=== PATIENT | female | born 1985 | race African-American/Black ===

== ENCOUNTER 2018-01-16 15:12 | Inpatient (IN) | payer BC ==
[~2018-01-16] VITALS: Ht 170.2 cm; Wt 130.6 kg
[~2018-01-16 15:12] MED LIST: BACTRIM DS1 EA GT
--- OUTSIDE RECORDS SUMMARY | 2018-01-16 15:15 | XMS REPORT | Continuity of Care Document ---
Author Author [facility] Interface Address Unknown Phone Unavailable Problems Problem Status Onset Date Classification Date Reported Comments Source BILATERAL PILONIDAL ABSCESS, FEBRILE. LE Active 01/18/2016 [facility] Diabetes Resolved 04/02/2014 Problem 01/24/2016 [facility] Anxiety Resolved Problem 01/24/2016 [facility] Female hirsutism Resolved Problem 01/24/2016 [facility] Family history of MRSA infection Resolved Problem 01/24/2016 [facility] History of PCOS Resolved Problem 01/24/2016 [facility] Chronic hypertension Resolved Problem 01/24/2016 [facility] Bipolar affective Resolved Problem 01/24/2016 [facility] Depression Resolved Problem 01/24/2016 [facility] Morbid obesity Resolved Problem 01/24/2016 [facility] Acne inversa Resolved Problem 01/24/2016 [facility] Morbid obesity Active Problem 02/29/2016 [id number] Abscess of buttock Active Diagnosis 02/29/2016 [id number] Hyperglycemia due to type 2 diabetes mellitus Active Problem 02/29/2016 [id number] Cellulitis Active Diagnosis 02/29/2016 [id number] PILONIDAL CYST WITH ABSCESS Active [facility] Medications Medication Details Route Status Patient Instructions Ordering Provider Order Date Source Mupirocin 1 application to affected area Externally Active 2 % Externally Three times a day Hasan 02/09/2016 [id number] Pneumovax 23 0.5 mL, Route: IM, Drug Form: INJ, Daily, Start date: 01/21/16 10:00:00 CDT, Stop date: 01/21/16 15:00:00 CDTNotes: (Same as: Pneumovax 23) Refrigerate Inactive 01/21/2016 [facility] Acetaminophen 300 MG / Codeine Phosphate 30 MG Oral Tablet [Tylenol with Codeine #3] 1 tab, PO, Q6H, PRN Pain Score 1-3, X 5 day, # 20 tab, 0 Refill(s) Active 01/20/2016 [facility] Acetaminophen 300 MG / Codeine Phosphate 30 MG Oral Tablet [Tylenol with Codeine #3] 1 tab, Route: PO, Drug Form: TAB, Dosing Weight 136.42, kg, Q6H, PRN Pain Score 1-3, Start date: 01/20/16 16:11:00 CDT, Duration: 30 day, Stop date: 02/19/16 16:10:00 CSTNotes: Do not exceed 4gm/day of acetaminophen. (Same as: Tylenol with Codeine # 3) No Longer Active 01/20/2016 [facility] doxycycline hyclate 100 MG Oral Capsule 100 mg=1 cap, PO, Q12H, X 10 day, # 20 cap, 0 Refill(s) Active 01/20/2016 [facility] famotidine (ANES) Route: IV, Drug form: INJ, ONCE, Stop date: 01/19/16 9:44:00 CDT Inactive 01/19/2016 [facility] succinylcholine (ANES) Route: IV, Drug form: INJ, ONCE, Stop date: 01/19/16 9:44:00 CDT Inactive 01/19/2016 [facility] fentaNYL (ANES) Route: IV, Drug form: INJ, ONCE, Stop date: 01/19/16 9:44:00 CDT Inactive 01/19/2016 [facility] ondansetron (ANES) Route: IV, Drug form: INJ, ONCE, Stop date: 01/19/16 9:44:00 CDT Inactive 01/19/2016 [facility] propofol (ANES) Route: IV, Drug form: INJ, ONCE, Stop date: 01/19/16 9:44:00 CDT Inactive 01/19/2016 [facility] lidocaine (ANES) Route: IV, Drug form: INJ, ONCE, Stop date: 01/19/16 9:44:00 CDT Inactive 01/19/2016 [facility] midazolam (ANES) Route: IV, Drug form: SOLN, ONCE, Stop date: 01/19/16 9:44:00 CDT Inactive 01/19/2016 [facility] LR 1000 mL INJ (ANES) Route: IV, Total Volume: 1,000, Start date: 01/19/16 9:05:00 CDT, Stop date: 01/19/16 10:05:00 CDT Inactive 01/19/2016 [facility] influenza virus vaccine, inactivated 0.5 mL, Route: IM, Drug Form: SUSP, Daily, Start date: 01/19/16 9:00:00 CDT, Duration: 1 doses or times, Stop date: 01/19/16 9:00:00 CDTNotes: (Same as: Fluzone Quadrivalent, Fluarix Quadrivalent) For 3 years of age and older (0.5 mL IM) Shake well before use Inactive 01/19/2016 [facility] pneumococcal capsular polysaccharide type 1 vaccine / pneumococcal capsular polysaccharide type 10A vaccine / pneumococcal capsular polysaccharide type 11A vaccine / pneumococcal capsular polysaccharide type 12F vaccine / pneumococcal capsular polysacchar 0.5 mL, Route: IM, Drug Form: INJ, Daily, Start date: 01/19/16 9:00:00 CDT, Duration: 1 doses or times, Stop date: 01/19/16 9:00:00 CDTNotes: (Same as: Pneumovax 23) Refrigerate No Longer Active 01/19/2016 [facility] Albuterol 0.833 MG/ML / Ipratropium [place] 0.167 MG/ML Inhalant Solution 3 mL, Route: NEB, Dosing Weight 136.42, kg, ONCE, STAT, Start date: 01/19/16 6:47:00 CDT, Stop date: 01/19/16 6:47:00 CDT Inactive 01/19/2016 [facility] Calcium Chloride 0.0014 MEQ/ML / Potassium Chloride 0.004 MEQ/ML / Sodium Chloride 0.103 MEQ/ML / Sodium Lactate 0.028 MEQ/ML Injectable Solution 1,000 mL, Rate: 25 ml/hr, Infuse over: 40 hr, Route: IV, Dosing Weight 136.42 kg, Total Volume: 1,000, Start date: 01/19/16 6:47:00 CDT, Duration: 30 day, Stop date: 02/18/16 6:46:00 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 01/19/2016 [facility] Sodium Chloride 0.154 MEQ/ML Injectable Solution 500 mL, Rate: 25 ml/hr, Infuse over: 20 hr, Route: IV, Dosing Weight 136.42 kg, Total Volume: 500, Start date: 01/19/16 6:47:00 CDT, Duration: 30 day, Stop date: 02/18/16 6:46:00 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 01/19/2016 [facility] Lisinopril 20 mg, 1 tab, Route: PO, Drug form: TAB, Daily, kg, Start date: 01/18/16 17:32:00 CDT, Duration: 30 day, Stop date: 02/17/16 9:00:00 CSTNotes: (Same as: Prinivil, Zestril) No Longer Active 01/18/2016 [facility] K-Dur 20 40 mEq, 2 tab, Route: PO, Drug form: ERTAB, ONCE, Dosing Weight 136.42, kg, Start date: 01/18/16 16:58:00 CDT, Stop date: 01/18/16 16:58:00 CDTNotes: (Same as: K-Dur 20) "Do Not Crush" With food and full glass of water Inactive 01/18/2016 [facility] sodium chloride 0.9% 1000 ml INJ 1,000 mL 1,000 mL, Rate: 100 ml/hr, Infuse over: 10 hr, Route: IV, Dosing Weight 136.42 kg, Total Volume: 1,000, Start date: 01/18/16 16:12:00 CDT, Duration: 30 day, Stop date: 02/17/16 16:11:00 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 01/18/2016 [facility] heparin sodium, porcine 2500 UNT/ML Injectable Solution 5,000 unit, 1 mL, Route: SUB-Q, Drug form: INJ, Q8H, kg, Start date: 01/18/16 16:00:00 CDT, Duration: 30 day, Stop date: 02/17/16 14:00:00 CSTNotes: porcine heparin No Longer Active 01/18/2016 [facility] Clindamycin 600 mg, 50 mL, Route: IVPB, Drug form: INJ, ABXQ8H, kg, Start date: 01/18/16 14:00:00 CDT, Duration: 30 day, Stop date: 02/17/16 6:00:00 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 01/18/2016 [facility] Dextrose 50% Syringe 12.5 gm, 25 mL, Route: IVP, Drug Form: INJ, kg, PRN, PRN Blood Glucose Results, Start date: 01/18/16 13:38:00 CDT, Duration: 30 day, Stop date: 02/17/16 12:37:00 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 (Same as: NovoLOG) "single patient use only" WASTE: F/P - Black; E - Municipal Trash Bin Stable for 28 days at room temperature. Expires in days from Date No Longer Active 01/18/2016 [facility] Sodium Chloride 0.9% IV 1000 mL 1,000 mL, Rate: 100 ml/hr, Infuse over: 10 hr, Route: IV, Total Volume: 1,000, Start date: 01/18/16 13:38:00 CDT, Duration: 2 day, Stop date: 01/20/16 13:37:00 CDT Inactive 01/18/2016 [facility] Morphine 2 mg, 1 mL, Route: IVP, Drug form: INJ, Q4H, kg, PRN Pain Score 7-10, Start date: 01/18/16 13:30:00 CDT, Duration: 30 day, Stop date: 02/17/16 13:29:00 CSTNotes: (Same as:MORPhine Sulfate) No Longer Active 01/18/2016 [facility] Naproxen 500 mg, 2 tab, Route: PO, Drug form: TAB, Q8H, kg, PRN Pain Score 4-6, Start date: 01/18/16 13:30:00 CDT, Duration: 30 day, Stop date: 02/17/16 13:29:00 CSTNotes: (Same as: Naprosyn) Take with food. No Longer Active 01/18/2016 [facility] Metformin 1,000 mg, PO, BID, 0 Refill(s) Active 01/18/2016 [facility] Lisinopril 20 mg, PO, Daily, 0 Refill(s) Active 01/18/2016 [facility] NuvaRing 1 ea, VAG, q4wk, 0 Refill(s) Active 01/18/2016 [facility] Lisinopril 1 tablet Orally Active 20 MG Orally Once a day Hasan [id number] Allergies, Adverse Reactions, Alerts Substance Category Reaction Severity Reaction type Status Date Reported Comments Source penicillin Adverse Reaction Info Not Available Adverse Reaction Active 02/09/2016 [id number] penicillins Assertion Drug allergy Active [facility] Immunizations Immunization Date Given Site Status Last Updated Comments Source pneumococcal 23-valent vaccine 01/21/2016 Left deltoid completed [facility] influenza virus vaccine, inactivated 01/21/2016 Right deltoid completed [facility] Results Order Name Results Value Reference Range Date Interpretation Comments Source ELECTROLYTES AGAP 12.3 meq/L 10.0 - 20.0 01/21/2016 [facility] ELECTROLYTES Glucose Lvl 98 mg/dL 70 - 99 01/21/2016 [facility] ELECTROLYTES BUN 7 mg/dL 7 - 22 01/21/2016 [facility] ELECTROLYTES Chloride Lvl 104 meq/L 95 - 109 01/21/2016 [facility] ELECTROLYTES CO2 26 meq/L 24 - 32 01/21/2016 [facility] ELECTROLYTES Sodium Lvl 138 meq/L 135 - 145 01/21/2016 [facility] ELECTROLYTES Potassium Lvl 4.3 meq/L 3.5 - 5.1 01/21/2016 [facility] ELECTROLYTES Creatinine Lvl 0.67 mg/dL 0.50 - 1.40 01/21/2016 [facility] ELECTROLYTES eGFR 135 mL/min/1.73m2 01/21/2016 Result Comment: The eGFR is calculated using the CKD-EPI formula. In most young, healthy individuals the eGFR will be >90 mL/min/1.73m2. The eGFR declines with age. An eGFR of 60-89 may be normal in some populations, particularly the elderly, for whom the CKD-EPI formula has not been extensively validated. Use of the eGFR is not recommended in the following populations: Individuals with unstable creatinine concentrations, including patients and those with serious co-morbid conditions. Patients with extremes in muscle mass or diet. The data above are obtained from the National Kidney Disease Education Program (NKDEP) which additionally recommends that when the eGFR is used in patients with extremes of body mass index for purposes of drug dosing, the eGFR should be multiplied by the estimated BMI. [facility] ELECTROLYTES Calcium Lvl 8.4 mg/dL 8.5 - 10.5 01/21/2016 [facility] HEMATOLOGY RDW 14.4 % 11.5 - 14.5 01/21/2016 [facility] MPV 7.3 fL 7.4 - 10.4 01/21/2016 [facility] Platelet 400 K/CMM 133 - 450 01/21/2016 [facility] RBC 4.24 M/CMM 4.20 - 5.40 01/21/2016 [facility] WBC 9.6 K/CMM 3.7 - 10.4 01/21/2016 [facility] MCV 72.4 fL 80.0 - 98.0 01/21/2016 [facility] MCHC 31.4 g/dL 32.0 - 36.0 01/21/2016 [facility] Hct 30.7 % 36.0 - 48.0 01/21/2016 [facility] Hgb 9.6 g/dL 12.0 - 16.0 01/21/2016 [facility] MCH 22.8 pg 27.0 - 31.0 01/21/2016 [facility] Eosinophils # 0.5 K/CMM 0.0 - 0.5 01/21/2016 [facility] Monocytes # 1.0 K/CMM 0.0 - 0.8 01/21/2016 [facility] Microcyte 1+ *ABN* (01/21/16 4:41 AM) None Seen 01/21/2016 [facility] Lymphocytes # 2.8 K/CMM 1.0 - 5.5 01/21/2016 [facility] Basophils # 0.1 K/CMM 0.0 - 0.2 01/21/2016 [facility] Segs 53.9 % 45.0 - 75.0 01/21/2016 [facility] HEMATOLOGY Monocytes 10.5 % 2.0 - 12.0 01/21/2016 [facility] HEMATOLOGY Segs-Bands # 5.2 K/CMM 1.5 - 8.1 01/21/2016 [facility] HEMATOLOGY Basophils 0.9 % 0.0 - 1.0 01/21/2016 [facility] HEMATOLOGY Lymphocytes 29.1 % 20.0 - 40.0 01/21/2016 [facility] HEMATOLOGY Eosinophils 5.6 % 0.0 - 4.0 01/21/2016 [facility] ELECTROLYTES AGAP 11.0 meq/L 10.0 - 20.0 01/20/2016 [facility] ELECTROLYTES eGFR 116 mL/min/1.73m2 01/20/2016 Result Comment: The eGFR is calculated using the CKD-EPI formula. In most young, healthy individuals the eGFR will be >90 mL/min/1.73m2. The eGFR declines with age. An eGFR of 60-89 may be normal in some populations, particularly the elderly, for whom the CKD-EPI formula has not been extensively validated. Use of the eGFR is not recommended in the following populations: Individuals with unstable creatinine concentrations, including patients and those with serious co-morbid conditions. Patients with extremes in muscle mass or diet. The data above are obtained from the National Kidney Disease Education Program (NKDEP) which additionally recommends that when the eGFR is used in patients with extremes of body mass index for purposes of drug dosing, the eGFR should be multiplied by the estimated BMI. [facility] ELECTROLYTES Potassium Lvl 4.0 meq/L 3.5 - 5.1 01/20/2016 [facility] ELECTROLYTES Sodium Lvl 137 meq/L 135 - 145 01/20/2016 [facility] ELECTROLYTES CO2 26 meq/L 24 - 32 01/20/2016 [facility] ELECTROLYTES Calcium Lvl 8.7 mg/dL 8.5 - 10.5 01/20/2016 [facility] ELECTROLYTES Chloride Lvl 104 meq/L 95 - 109 01/20/2016 [facility] ELECTROLYTES Creatinine Lvl 0.78 mg/dL 0.50 - 1.40 01/20/2016 [facility] ELECTROLYTES BUN 8 mg/dL 7 - 22 01/20/2016 [facility] ELECTROLYTES Glucose Lvl 93 mg/dL 70 - 99 01/20/2016 [facility] HEMATOLOGY RBC 4.24 M/CMM 4.20 - 5.40 01/20/2016 [facility] HEMATOLOGY RDW 14.3 % 11.5 - 14.5 01/20/2016 [facility] HEMATOLOGY Platelet 422 K/CMM 133 - 450 01/20/2016 [facility] HEMATOLOGY MPV 7.7 fL 7.4 - 10.4 01/20/2016 [facility] HEMATOLOGY Hgb 10.1 g/dL 12.0 - 16.0 01/20/2016 [facility] HEMATOLOGY Hct 30.9 % 36.0 - 48.0 01/20/2016 [facility] HEMATOLOGY MCV 72.9 fL 80.0 - 98.0 01/20/2016 [facility] MCH 23.7 pg 27.0 - 31.0 01/20/2016 [facility] MCHC 32.5 g/dL 32.0 - 36.0 01/20/2016 [facility] HEMATOLOGY WBC 9.7 K/CMM 3.7 - 10.4 01/20/2016 [facility] Lymphocytes 28.5 % 20.0 - 40.0 01/20/2016 [facility] Monocytes 9.5 % 2.0 - 12.0 01/20/2016 [facility] HEMATOLOGY Eosinophils 5.8 % 0.0 - 4.0 01/20/2016 [facility] HEMATOLOGY Monocytes # 0.9 K/CMM 0.0 - 0.8 01/20/2016 [facility] HEMATOLOGY Eosinophils # 0.6 K/CMM 0.0 - 0.5 01/20/2016 [facility] HEMATOLOGY Basophils # 0.1 K/CMM 0.0 - 0.2 01/20/2016 [facility] HEMATOLOGY Basophils 0.7 % 0.0 - 1.0 01/20/2016 [facility] HEMATOLOGY Segs-Bands # 5.4 K/CMM 1.5 - 8.1 01/20/2016 [facility] HEMATOLOGY Lymphocytes # 2.8 K/CMM 1.0 - 5.5 01/20/2016 [facility] HEMATOLOGY Microcyte 1+ *ABN* (01/20/16 7:07 AM) None Seen 01/20/2016 [facility] HEMATOLOGY Segs 55.5 % 45.0 - 75.0 01/20/2016 [facility] URINE CHEM U Preg Negative (01/19/16 6:57 AM) Negative 01/19/2016 [facility] URINE AND STOOL UA Mucus Many /LPF None Seen /LPF 01/18/2016 [facility] URINE AND STOOL UA RBC 1 /HPF 0 - 2 01/18/2016 [facility] URINE AND STOOL UA Bacteria Occasional /HPF None Seen /HPF 01/18/2016 [facility] URINE AND STOOL UA Color Sahra 01/18/2016 [facility] URINE AND STOOL UA Sq Epi Occasional /LPF Few /LPF 01/18/2016 [facility] URINE AND STOOL UA Leuk Est Negative (01/18/16 6:04 PM) Negative 01/18/2016 [facility] URINE AND STOOL UA WBC 2 /HPF 0 - 5 01/18/2016 [facility] URINE AND STOOL UA Spec Grav 1.025 <=1.030 01/18/2016 [facility] URINE AND STOOL UA Turbidity Clear (01/18/16 6:04 PM) Clear 01/18/2016 [facility] URINE AND STOOL UA Ketones 20 mg/dL Negative mg/dL 01/18/2016 [facility] URINE AND STOOL UA Glucose Negative mg/dL Negative mg/dL 01/18/2016 [facility] URINE AND STOOL UA Protein 30 mg/dL Negative mg/dL 01/18/2016 [facility] URINE AND STOOL UA pH 5.0 5.0 - 8.0 01/18/2016 [facility] URINE AND STOOL UA Bili Negative *NA* (01/18/16 6:04 PM) Negative 01/18/2016 [facility] URINE AND STOOL UA Nitrite Negative (01/18/16 6:04 PM) Negative 01/18/2016 [facility] URINE AND STOOL UA Urobilinogen 2.0 mg/dL 0.1 - 1.0 01/18/2016 [facility] URINE AND STOOL UA Blood Negative (01/18/16 6:04 PM) Negative 01/18/2016 [facility] HEMATOLOGY PTT 32.3 s 22.9 - 35.8 01/18/2016 [facility] HEMATOLOGY PT 15.2 s 12.0 - 14.7 01/18/2016 [facility] HEMATOLOGY INR 1.18 0.85 - 1.17 01/18/2016 [facility] CHEM PANEL Magnesium Lvl 1.8 mg/dL 1.8 - 2.4 01/18/2016 [facility] CHEM PANEL eGFR 128 mL/min/1.73m2 01/18/2016 Result Comment: The eGFR is calculated using the CKD-EPI formula. In most young, healthy individuals the eGFR will be >90 mL/min/1.73m2. The eGFR declines with age. An eGFR of 60-89 may be normal in some populations, particularly the elderly, for whom the CKD-EPI formula has not been extensively validated. Use of the eGFR is not recommended in the following populations: Individuals with unstable creatinine concentrations, including patients and those with serious co-morbid conditions. Patients with extremes in muscle mass or diet. The data above are obtained from the National Kidney Disease Education Program (NKDEP) which additionally recommends that when the eGFR is used in patients with extremes of body mass index for purposes of drug dosing, the eGFR should be multiplied by the estimated BMI. [facility] CHEM PANEL Alk Phos 93 unit/L 39 - 136 01/18/2016 [facility] CHEM PANEL Bili Total 0.4 mg/dL 0.2 - 1.3 01/18/2016 [facility] CHEM PANEL Albumin Lvl 3.0 g/dL 3.5 - 5.0 01/18/2016 [facility] CHEM PANEL ALT 19 unit/L 0 - 65 01/18/2016 [facility] CHEM PANEL AST 18 unit/L 0 - 37 01/18/2016 [facility] CHEM PANEL Calcium Lvl 9.0 mg/dL 8.5 - 10.5 01/18/2016 [facility] CHEM PANEL Total Protein 8.2 g/dL 6.4 - 8.4 01/18/2016 [facility] CHEM PANEL Sodium Lvl 135 meq/L 135 - 145 01/18/2016 [facility] CHEM PANEL Potassium Lvl 3.4 meq/L 3.5 - 5.1 01/18/2016 [facility] CHEM PANEL Chloride Lvl 102 meq/L 95 - 109 01/18/2016 [facility] CHEM PANEL CO2 22 meq/L 24 - 32 01/18/2016 [facility] CHEM PANEL BUN 6 mg/dL 7 - 22 01/18/2016 [facility] CHEM PANEL Creatinine Lvl 0.72 mg/dL 0.50 - 1.40 01/18/2016 [facility] CHEM PANEL Glucose Lvl 127 mg/dL 70 - 99 01/18/2016 [facility] CHEM PANEL A/G Ratio 0.6 0.7 - 1.6 01/18/2016 [facility] CHEM PANEL B/C Ratio 8 6 - 25 01/18/2016 [facility] CHEM PANEL Globulin 5.2 g/dL 2.7 - 4.2 01/18/2016 [facility] CHEM PANEL AGAP 14.4 meq/L 10.0 - 20.0 01/18/2016 [facility] CHEM PANEL Phosphorus 3.1 mg/dL 2.5 - 4.5 01/18/2016 [facility] HEMATOLOGY MCV 72.7 fL 80.0 - 98.0 01/18/2016 [facility] HEMATOLOGY Hct 30.9 % 36.0 - 48.0 01/18/2016 [facility] HEMATOLOGY Hgb 9.6 g/dL 12.0 - 16.0 01/18/2016 [facility] HEMATOLOGY RBC 4.26 M/CMM 4.20 - 5.40 01/18/2016 [facility] HEMATOLOGY MCH 22.6 pg 27.0 - 31.0 01/18/2016 [facility] HEMATOLOGY WBC 19.1 K/CMM 3.7 - 10.4 01/18/2016 [facility] HEMATOLOGY MCHC 31.1 g/dL 32.0 - 36.0 01/18/2016 [facility] HEMATOLOGY RDW 14.1 % 11.5 - 14.5 01/18/2016 [facility] HEMATOLOGY Platelet 375 K/CMM 133 - 450 01/18/2016 [facility] HEMATOLOGY MPV 7.9 fL 7.4 - 10.4 01/18/2016 [facility] HEMATOLOGY Lymphocytes # 2.7 K/CMM 1.0 - 5.5 01/18/2016 [facility] HEMATOLOGY Eosinophils # 0.2 K/CMM 0.0 - 0.5 01/18/2016 [facility] HEMATOLOGY Basophils # 0.1 K/CMM 0.0 - 0.2 01/18/2016 [facility] HEMATOLOGY Microcyte 1+ *ABN* (01/18/16 2:49 PM) None Seen 01/18/2016 [facility] HEMATOLOGY Monocytes # 2.1 K/CMM 0.0 - 0.8 01/18/2016 [facility] HEMATOLOGY Eosinophils 1.2 % 0.0 - 4.0 01/18/2016 [facility] HEMATOLOGY Basophils 0.5 % 0.0 - 1.0 01/18/2016 [facility] HEMATOLOGY Segs-Bands # 13.9 K/CMM 1.5 - 8.1 01/18/2016 [facility] HEMATOLOGY Lymphocytes 14.3 % 20.0 - 40.0 01/18/2016 [facility] HEMATOLOGY Segs 72.9 % 45.0 - 75.0 01/18/2016 [facility] HEMATOLOGY Monocytes 11.1 % 2.0 - 12.0 01/18/2016 [facility] HEMATOLOGY Sed Rate 4 mm/h 0 - 20 01/18/2016 [facility] IMMUNOLOGY C-REACTIVE PROTEIN 165.0 mg/L <=2.9 mg/L 01/18/2016 [facility] SPECIAL CHEMISTRY Hgb A1C 7.6 % <=5.6 % 01/18/2016 [facility] Vital Signs Vital Sign Value Date Comments Source Weight 300 02/09/2016 [id number] Height 67 02/09/2016 [id number] Temperature Oral (F) 98.0 F 02/09/2016 [id number] Heart Rate 92 02/09/2016 [id number] Diastolic (mm Hg) 76 02/09/2016 [id number] Systolic (mm Hg) 144 02/09/2016 [id number] Systolic (mm Hg) 130 01/21/2016 [facility] Diastolic (mm Hg) 76 01/21/2016 [facility] Heart Rate 73 01/21/2016 [facility] Respitory Rate 16 01/21/2016 [facility] Temperature Oral (F) 98.6 F 01/21/2016 [facility] Respitory Rate 16 01/21/2016 [facility] Systolic (mm Hg) 144 01/21/2016 [facility] Diastolic (mm Hg) 72 01/21/2016 [facility] Heart Rate 78 01/21/2016 [facility] Temperature Oral (F) 98.2 F 01/21/2016 [facility] Temperature Oral (F) 98.0 F 01/21/2016 [facility] Heart Rate 73 01/21/2016 [facility] Respitory Rate 16 01/21/2016 [facility] Systolic (mm Hg) 134 01/21/2016 [facility] Diastolic (mm Hg) 73 01/21/2016 [facility] Height 170.18 cm 01/18/2016 [facility] Weight 136.42 01/18/2016 [facility] Encounters Location Location Details Encounter Type Encounter Number Reason For Visit Attending Provider ADM Date DC Date Status Source [facility] Inpatient [id number] Grace Cheng 01/18/2016 01/21/2016 [facility] Outpatient [id number] ABBIE EDWARDS 01/19/[address] [facility] Outpatient [id number] ABBIE EDWARDS 01/31/2016 Active [facility] 01/21/16 [id number] 02/09/2016 02/09/2016 [id number] Outpatient [id number] ABBIE EDWARDS 02/14/[address] [facility] Procedures Procedure Code Date Perfomer Comments Source Incision and drainage of abscess (eg, carbuncle, suppurative hidradenitis, cutaneous or subcutaneous abscess, cyst, furuncle, or paronychia); complicated or multiple [id number] 01/19/2016 [facility]ATT [id number] 04/02/2003 Stefani
--- OUTSIDE RECORDS SUMMARY | 2018-01-16 15:16 | XMS REPORT ---
Author Author Matt Millard Organization [employer] Address Unknown Phone Unavailable Care Team Providers Care Ball Ender Name Role Phone Matt Millard CP Unavailable Allergies, Adverse Reactions, Alerts Substance Reaction Event Type penicillin Info Not Available Drug Allergy Encounters Encounter Location Date [facility] 01/21/16 [facility] Feb 09, 2016 Problems Problem Type Condition ICD-9 Code Onset Dates Condition Status Problem Morbid obesity E66.01 Active Assessment Abscess of buttock L02.31 Active Problem Hyperglycemia due to type 2 diabetes mellitus E11.65 Active Assessment Morbid obesity E66.01 Active Assessment Cellulitis L03.90 Active Assessment Hyperglycemia due to type 2 diabetes mellitus E11.65 Active Medications Medication Code System Code Instructions Start Date End Date Status Dosage Mupirocin MEDISPAN [id number] 2 % Externally Three times a day Feb 09, 2016 Apr 09, 2016 Active 1 application to affected area Lisinopril MEDISPAN [id number] 20 MG Orally Once a day Active 1 tablet Social History Social History Element Qualifiers Date Reported Smoke Exposure: . Second Hand Smoke Exposure: No Feb 09, 2016 Do you take Aspirin, or a blood thinner . No I do not take aspirin / or a blood thinner Feb 09, 2016 Tobacco Use: . Are you a: never smoker Feb 09, 2016 Do you drink alcohol? . Status: No Feb 09, 2016 Vital Signs Date/Time: Feb 09, 2016 Weight 300 lbs Height 67 in Temperature 98.0 F Cardiac Monitoring Heart Rate 92 /min Blood Pressure Diastolic 76 mm Hg Blood Pressure Systolic 144 mm Hg Summary Purpose [employer] Submission
--- OUTSIDE RECORDS SUMMARY | 2018-01-16 15:16 | XMS REPORT | Summary of Care ---
Author Author [facility] Organization [facility] Address Unknown Phone Unavailable Encounter EULALIA Dumont(RODRIGUEZ) [id number] Date(s): 01/18/16 - 01/21/16 [facility] [address] [place] [address]- Discharge Disposition: Home Care with Home Health Attending Physician: Grace Cheng MD Admitting Physician: Grace Cheng MD Vital Signs 1 2 3 Most recent to oldest [Reference Range]: 170.18 cm (01/18/16 4:14 PM) Height 98.6 DegF (01/21/16 2:37 PM) 98.2 DegF (01/21/16 11:59 AM) 98.0 DegF (01/21/16 7:43 AM) Temperature Oral [96.4-99.1 DegF] 130/76 mmHg (01/21/16 2:37 PM) 144/72 mmHg *HI* (01/21/16 11:59 AM) 134/73 mmHg (01/21/16 7:43 AM) Blood Pressure [90-140/60-90 mmHg] 16 BRMIN (01/21/16 2:37 PM) 16 BRMIN (01/21/16 11:59 AM) 16 BRMIN (01/21/16 7:43 AM) Respiratory Rate [14-20 BRMIN] 73 bpm (01/21/16 2:37 PM) 78 bpm (01/21/16 11:59 AM) 73 bpm (01/21/16 7:43 AM) Peripheral Pulse Rate [60-100 bpm] 136.42 kg (01/18/16 3:14 PM) Weight Problem List Condition Effective Dates Status Health Status Informant Anxiety(Confirmed) Resolved Diabetes(Confirmed) 2014 Resolved Female Resolved hirsutism(Confirmed) Family history of Resolved MRSA infection(Confirmed) History of Resolved PCOS(Confirmed) Chronic Resolved hypertension(Confirm ed) Bipolar Resolved affective(Confirmed) Depression(Confirmed Resolved ) Morbid Resolved obesity(Confirmed) Acne Resolved inversa(Confirmed) Allergies, Adverse Reactions, Alerts Substance Reaction Severity Status penicillins Active Medications albuterol-ipratropium 2.5-0.5 mg inhalation solution 3 mL, Route: NEB, Dosing Weight 136.42, kg, ONCE, STAT, Start date: 01/19/16 6:4 7:00 CDT, Stop date: 01/19/16 6:47:00 CDT Start Date: 01/19/16 Stop Date: 01/19/16 Status: Discontinued clindamycin 600 mg, 50 mL, Route: IVPB, Drug form: INJ, ABXQ8H, kg, Start date: 01/18/16 14: 00:00 CDT, Duration: 30 day, Stop date: 02/17/16 6:00:[address] Start Date: 01/18/16 Stop Date: 01/21/16 Status: Discontinued Dextrose 50% Syringe 12.5 gm, 25 mL, Route: IVP, Drug Form: INJ, kg, PRN, PRN Blood Glucose Results, Start date: 01/18/16 13:38:00 CDT, Duration: 30 day, Stop date: 02/17/16 12:37:[address] Start Date: 01/18/16 Stop Date: 01/21/16 Status: Discontinued Dextrose 50% Syringe 25 gm, 50 mL, Route: IVP, Drug Form: INJ, kg, PRN, PRN Blood Glucose Results, St art date: 01/18/16 13:38:00 CDT, Duration: 30 day, Stop date: 02/17/16 12:37:[address] Start Date: 01/18/16 Stop Date: 01/21/16 Status: Discontinued doxycycline hyclate 100 mg oral capsule 100 mg=1 cap, PO, Q12H, X 10 day, # 20 cap, 0 Refill(s) Start Date: 01/20/16 Stop Date: 01/30/16 Status: Ordered famotidine (ANES) Route: IV, Drug form: INJ, ONCE, Stop date: 01/19/16 9:44:00 CDT Start Date: 01/19/16 Stop Date: 01/19/16 Status: Completed fentaNYL (ANES) Route: IV, Drug form: INJ, ONCE, Stop date: 01/19/16 9:44:00 CDT Start Date: 01/19/16 Stop Date: 01/19/16 Status: Completed glucagon 1 mg, Route: IM, Drug form: PDR/INJ, PRN, kg, PRN Blood Glucose Results, Start d ate: 01/18/16 13:38:00 CDT, Duration: 30 day, Stop date: 02/17/16 12:37:[address] Start Date: 01/18/16 Stop Date: 01/21/16 Status: Discontinued heparin 5000 units/mL injectable solution 5,000 unit, 1 mL, Route: SUB-Q, Drug form: INJ, Q8H, kg, Start date: 01/18/16 16 :00:00 CDT, Duration: 30 day, Stop date: 02/17/16 14:00:[address] Notes: porcine heparin Start Date: 01/18/16 Stop Date: 01/21/16 Status: Discontinued influenza virus vaccine, inactivated 0.5 mL, Route: IM, Drug Form: SUSP, Daily, Start date: 01/19/16 9:00:00 CDT, Dur ation: 1 doses or times, Stop date: 01/19/16 9:00:00 CDT Notes: (Same as: Fluzone Quadrivalent, Fluarix Quadrivalent)For 3 years of age a nd older (0.5 mL IM)Shake well before use Start Date: 01/19/16 Stop Date: 01/19/16 Status: Completed insulin aspart 8 unit, 0.08 mL, Route: SUB-Q, Drug form: SOLN, TID-Before Meals, kg, PRN Blood Glucose Results, Start date: 01/18/16 13:38:00 CDT, Duration: 30 day, Stop date: 02/17/16 13:37:[address] Notes: Roll in palms of hands gently; Do not shake vigorously. (Same as: Daniele Zayas)"single patient use only"WASTE: F/P - Black; E - Municipal Trash Bin Stable f or 28 days at room temperature.Expires in days from Date Start Date: 01/18/16 Stop Date: 01/21/16 Status: Discontinued insulin aspart 6 unit, 0.06 mL, Route: SUB-Q, Drug form: SOLN, TID-Before Meals, kg, PRN Blood Glucose Results, Start date: 01/18/16 13:38:00 CDT, Duration: 30 day, Stop date: 02/17/16 13:37:[address] Notes: Roll in palms of hands gently; Do not shake vigorously. (Same as: Daniele Zayas)"single patient use only"WASTE: F/P - Black; E - Municipal Trash Bin Stable f or 28 days at room temperature.Expires in days from Date Start Date: 01/18/16 Stop Date: 01/21/16 Status: Discontinued insulin aspart 4 unit, 0.04 mL, Route: SUB-Q, Drug form: SOLN, TID-Before Meals, kg, PRN Blood Glucose Results, Start date: 01/18/16 13:38:00 CDT, Duration: 30 day, Stop date: 02/17/16 13:37:[address] Notes: Roll in palms of hands gently; Do not shake vigorously. (Same as: Daniele Zayas)"single patient use only"WASTE: F/P - Black; E - Municipal Trash Bin Stable f or 28 days at room temperature.Expires in days from Date Start Date: 01/18/16 Stop Date: 01/21/16 Status: Discontinued insulin aspart 2 unit, 0.02 mL, Route: SUB-Q, Drug form: SOLN, TID-Before Meals, kg, PRN Blood Glucose Results, Start date: 01/18/16 13:38:00 CDT, Duration: 30 day, Stop date: 02/17/16 13:37:[address] Notes: Roll in palms of hands gently; Do not shake vigorously. (Same as: Daniele Zayas)"single patient use only"WASTE: F/P - Black; E - Municipal Trash Bin Stable f or 28 days at room temperature.Expires in days from Date Start Date: 01/18/16 Stop Date: 01/21/16 Status: Discontinued insulin aspart 10 unit, 0.1 mL, Route: SUB-Q, Drug form: SOLN, TID-Before Meals, kg, PRN Blood Glucose Results, Start date: 01/18/16 13:38:00 CDT, Duration: 30 day, Stop date: 02/17/16 13:37:[address] Notes: Roll in palms of hands gently; Do not shake vigorously. (Same as: Daniele Zayas)"single patient use only"WASTE: F/P - Black; E - Municipal Trash Bin Stable f or 28 days at room temperature.Expires in days from Date Start Date: 01/18/16 Stop Date: 01/21/16 Status: Discontinued K-Dur 20 40 mEq, 2 tab, Route: PO, Drug form: ERTAB, ONCE, Dosing Weight 136.42, kg, Star t date: 01/18/16 16:58:00 CDT, Stop date: 01/18/16 16:58:00 CDT Notes: (Same as: K-Dur 20)"Do Not Crush" With food and full glass of water Start Date: 01/18/16 Stop Date: 01/18/16 Status: Completed Lactated Ringers Injection IV 1000 mL 1,000 mL, Rate: 25 ml/hr, Infuse over: 40 hr, Route: IV, Dosing Weight 136.42 kg , Total Volume: 1,000, Start date: 01/19/16 6:47:00 CDT, Duration: 30 day, Stop date: 02/18/16 6:46:[address] Start Date: 01/19/16 Stop Date: 01/19/16 Status: Discontinued lidocaine (ANES) Route: IV, Drug form: INJ, ONCE, Stop date: 01/19/16 9:44:00 CDT Start Date: 01/19/16 Stop Date: 01/19/16 Status: Completed lisinopril 20 mg, PO, Daily, 0 Refill(s) Start Date: 01/18/16 Status: Ordered lisinopril 20 mg, 1 tab, Route: PO, Drug form: TAB, Daily, kg, Start date: 01/18/16 17:32:0 0 CDT, Duration: 30 day, Stop date: 02/17/16 9:00:[address] Notes: (Same as: Prinivil, Zestril) Start Date: 01/18/16 Stop Date: 01/21/16 Status: Discontinued LR 1000 mL INJ (ANES) Route: IV, Total Volume: 1,000, Start date: 01/19/16 9:05:00 CDT, Stop date: 10:05:00 CDT Start Date: 01/19/16 Stop Date: 01/19/16 Status: Completed metFORMIN 1,000 mg, PO, BID, 0 Refill(s) Start Date: 01/18/16 Status: Ordered midazolam (ANES) Route: IV, Drug form: SOLN, ONCE, Stop date: 01/19/16 9:44:00 CDT Start Date: 01/19/16 Stop Date: 01/19/16 Status: Completed morphine Sulfate 2 mg, 1 mL, Route: IVP, Drug form: INJ, Q4H, kg, PRN Pain Score 7-10, Start date : 01/18/16 13:30:00 CDT, Duration: 30 day, Stop date: 02/17/16 13:29:[address] Notes: (Same as:MORPhine Sulfate) Start Date: 01/18/16 Stop Date: 01/21/16 Status: Discontinued naproxen 500 mg, 2 tab, Route: PO, Drug form: TAB, Q8H, kg, PRN Pain Score 4-6, Start hattie e: 01/18/16 13:30:00 CDT, Duration: 30 day, Stop date: 02/17/16 13:29:[address] Notes: (Same as: Naprosyn) Take with food. Start Date: 01/18/16 Stop Date: 01/21/16 Status: Discontinued NuvaRing 1 ea, VAG, q4wk, 0 Refill(s) Start Date: 01/18/16 Status: Ordered ondansetron (ANES) Route: IV, Drug form: INJ, ONCE, Stop date: 01/19/16 9:44:00 CDT Start Date: 01/19/16 Stop Date: 01/19/16 Status: Completed pneumococcal 23-valent vaccine 0.5 mL, Route: IM, Drug Form: INJ, Daily, Start date: 01/19/16 9:00:00 CDT, Dura tion: 1 doses or times, Stop date: 01/19/16 9:00:00 CDT Notes: (Same as: Pneumovax 23) Refrigerate Start Date: 01/19/16 Stop Date: 01/21/16 Status: Deleted Pneumovax 23 0.5 mL, Route: IM, Drug Form: INJ, Daily, Start date: 01/21/16 10:00:00 CDT, Sto p date: 01/21/16 15:00:00 CDT Notes: (Same as: Pneumovax 23) Refrigerate Start Date: 01/21/16 Stop Date: 01/21/16 Status: Completed propofol (ANES) Route: IV, Drug form: INJ, ONCE, Stop date: 01/19/16 9:44:00 CDT Start Date: 01/19/16 Stop Date: 01/19/16 Status: Completed sodium chloride 0.9% 1000 ml INJ 1,000 mL 1,000 mL, Rate: 100 ml/hr, Infuse over: 10 hr, Route: IV, Dosing Weight 136.42 k g, Total Volume: 1,000, Start date: 01/18/16 16:12:00 CDT, Duration: 30 day, Sto p date: 02/17/16 16:11:[address] Start Date: 01/18/16 Stop Date: 01/20/16 Status: Discontinued Sodium Chloride 0.9% IV 1000 mL 1,000 mL, Rate: 100 ml/hr, Infuse over: 10 hr, Route: IV, Total Volume: 1,000, S tart date: 01/18/16 13:38:00 CDT, Duration: 2 day, Stop date: 01/20/16 13:37:00 CDT Start Date: 01/18/16 Stop Date: 01/18/16 Status: Deleted Sodium Chloride 0.9% IV 500 mL 500 mL, Rate: 25 ml/hr, Infuse over: 20 hr, Route: IV, Dosing Weight 136.42 kg, Total Volume: 500, Start date: 01/19/16 6:47:00 CDT, Duration: 30 day, Stop date : 02/18/16 6:46:[address] Start Date: 01/19/16 Stop Date: 01/19/16 Status: Discontinued succinylcholine (ANES) Route: IV, Drug form: INJ, ONCE, Stop date: 01/19/16 9:44:00 CDT Start Date: 01/19/16 Stop Date: 01/19/16 Status: Completed Tylenol with Codeine #3 oral tablet 1 tab, PO, Q6H, PRN Pain Score 1-3, X 5 day, # 20 tab, 0 Refill(s) Start Date: 01/20/16 Stop Date: 01/25/16 Status: Ordered Tylenol with Codeine #3 oral tablet 1 tab, Route: PO, Drug Form: TAB, Dosing Weight 136.42, kg, Q6H, PRN Pain Score 1-3, Start date: 01/20/16 16:11:00 CDT, Duration: 30 day, Stop date: 02/19/16 16 :10:[address] Notes: Do not exceed 4gm/day of acetaminophen. (Same as: Tylenol with Codeine # 3) Start Date: 01/20/16 Stop Date: 01/21/16 Status: Discontinued Results ELECTROLYTES 1 2 3 Most recent to oldest [Reference Range]: 138 mEq/L (01/21/16 4:41 AM) 137 mEq/L (01/20/16 7:07 AM) 135 mEq/L (01/18/16 2:49 PM) Sodium Lvl [135-145 mEq/L] 4.3 mEq/L (01/21/16 4:41 AM) 4.0 mEq/L (01/20/16 7:07 AM) 3.4 mEq/L *LOW* (01/18/16 2:49 PM) Potassium Lvl [3.5-5.1 mEq/L] 104 mEq/L (01/21/16 4:41 AM) 104 mEq/L (01/20/16 7:07 AM) 102 mEq/L (01/18/16 2:49 PM) Chloride Lvl [95-109 mEq/L] 26 mEq/L (01/21/16 4:41 AM) 26 mEq/L (01/20/16 7:07 AM) 22 mEq/L *LOW* (01/18/16 2:49 PM) CO2 [24-32 mEq/L] 12.3 mEq/L (01/21/16 4:41 AM) 11.0 mEq/L (01/20/16 7:07 AM) 14.4 mEq/L (01/18/16 2:49 PM) AGAP [10.0-20.0 mEq/L] CHEM PANEL 1 2 3 Most recent to oldest [Reference Range]: 0.67 mg/dL (01/21/16 4:41 AM) 0.78 mg/dL (01/20/16 7:07 AM) 0.72 mg/dL (01/18/16 2:49 PM) Creatinine Lvl [0.50-1.40 mg/dL] 135 mL/min/1.73m2 1 *NA* (01/21/16 4:41 AM) 116 mL/min/1.73m2 2 *NA* (01/20/16 7:07 AM) 128 mL/min/1.73m2 3 *NA* (01/18/16 2:49 PM) eGFR 7 mg/dL (01/21/16 4:41 AM) 8 mg/dL (01/20/16 7:07 AM) 6 mg/dL *LOW* (01/18/16 2:49 PM) BUN [7-22 mg/dL] 8 (01/18/16 2:49 PM) B/C Ratio [6-25] 98 mg/dL (01/21/16 4:41 AM) 93 mg/dL (01/20/16 7:07 AM) 127 mg/dL *HI* (01/18/16 2:49 PM) Glucose Lvl [70-99 mg/dL] 8.2 g/dL (01/18/16 2:49 PM) Total Protein [6.4-8.4 g/dL] 3.0 g/dL *LOW* (01/18/16 2:49 PM) Albumin Lvl [3.5-5.0 g/dL] 5.2 g/dL *HI* (01/18/16 2:49 PM) Globulin [2.7-4.2 g/dL] 0.6 *LOW* (01/18/16 2:49 PM) A/G Ratio [0.7-1.6] 8.4 mg/dL *LOW* (01/21/16 4:41 AM) 8.7 mg/dL (01/20/16 7:07 AM) 9.0 mg/dL (01/18/16 2:49 PM) Calcium Lvl [8.5-10.5 mg/dL] 3.1 mg/dL (01/18/16 2:49 PM) Phosphorus [2.5-4.5 mg/dL] 1.8 mg/dL (01/18/16 2:49 PM) Magnesium Lvl [1.8-2.4 mg/dL] 19 unit/L (01/18/16 2:49 PM) ALT [0-65 unit/L] 18 unit/L (01/18/16 2:49 PM) AST [0-37 unit/L] 93 unit/L (01/18/16 2:49 PM) Alk Phos [39-136 unit/L] 0.4 mg/dL (01/18/16 2:49 PM) Bili Total [0.2-1.3 mg/dL] 1Result Comment: The eGFR is calculated using the [...] from the National Kidney Disease Education Program ( NKDEP) which additionally recommends that when the eGFR is used in patients with extremes of body mass index for purposes of drug dosing, the eGFR should be mul tiplied by the estimated BMI. 2Result Comment: The eGFR is calculated using the [...] from the National Kidney Disease Education Program ( NKDEP) which additionally recommends that when the eGFR is used in patients with extremes of body mass index for purposes of drug dosing, the eGFR should be mul tiplied by the estimated BMI. 3Result Comment: The eGFR is calculated using the [...] from the National Kidney Disease Education Program ( NKDEP) which additionally recommends that when the eGFR is used in patients with extremes of body mass index for purposes of drug dosing, the eGFR should be mul tiplied by the estimated BMI. SPECIAL CHEMISTRY 1 2 3 Most recent to oldest [Reference Range]: 7.6 % *HI* (01/18/16 2:49 PM) Hgb A1C [<=5.6 %] URINE CHEM 1 2 3 Most recent to oldest [Reference Range]: Negative (01/19/16 6:57 AM) U Preg [Negative] URINE AND STOOL 1 2 3 Most recent to oldest [Reference Range]: Clear (01/18/16 6:04 PM) UA Turbidity [Clear] Sahra *NA* (01/18/16 6:04 PM) UA Color 5.0 (01/18/16 6:04 PM) UA pH [5.0-8.0] 1.025 (01/18/16 6:04 PM) UA Spec Grav [<=1.030] Negative mg/dL *NA* (01/18/16 6:04 PM) UA Glucose [Negative mg/dL] Negative (01/18/16 6:04 PM) UA Blood [Negative] 20 mg/dL *ABN* (01/18/16 6:04 PM) UA Ketones [Negative mg/dL] 30 mg/dL *ABN* (01/18/16 6:04 PM) UA Protein [Negative mg/dL] 2.0 mg/dL *HI* (01/18/16 6:04 PM) UA Urobilinogen [0.1-1.0 mg/dL] Negative *NA* (01/18/16 6:04 PM) UA Bili [Negative] Negative (01/18/16 6:04 PM) UA Leuk Est [Negative] Negative (01/18/16 6:04 PM) UA Nitrite [Negative] 2 /HPF (01/18/16 6:04 PM) UA WBC [0-5 /HPF] 1 /HPF (01/18/16 6:04 PM) UA RBC [0-2 /HPF] Occasional /HPF *NA* (01/18/16 6:04 PM) UA Bacteria [None Seen /HPF] Occasional /LPF *NA* (01/18/16 6:04 PM) UA Sq Epi [Few /LPF] Many /LPF *ABN* (01/18/16 6:04 PM) UA Mucus [None Seen /LPF] IMMUNOLOGY 1 2 3 Most recent to oldest [Reference Range]: 165.0 mg/L *HI* (01/18/16 2:49 PM) CRP [<=2.9 mg/L] HEMATOLOGY 1 2 3 Most recent to oldest [Reference Range]: 9.6 K/CMM (01/21/16 4:41 AM) 9.7 K/CMM (01/20/16 7:07 AM) 19.1 K/CMM *HI* (01/18/16 2:49 PM) WBC [3.7-10.4 K/CMM] 4.24 M/CMM (01/21/16 4:41 AM) 4.24 M/CMM (01/20/16 7:07 AM) 4.26 M/CMM (01/18/16 2:49 PM) RBC [4.20-5.40 M/CMM] 9.6 g/dL *LOW* (01/21/16 4:41 AM) 10.1 g/dL *LOW* (01/20/16 7:07 AM) 9.6 g/dL *LOW* (01/18/16 2:49 PM) Hgb [12.0-16.0 g/dL] 30.7 % *LOW* (01/21/16 4:41 AM) 30.9 % *LOW* (01/20/16 7:07 AM) 30.9 % *LOW* (01/18/16 2:49 PM) Hct [36.0-48.0 %] 72.4 fL *LOW* (01/21/16 4:41 AM) 72.9 fL *LOW* (01/20/16 7:07 AM) 72.7 fL *LOW* (01/18/16 2:49 PM) MCV [80.0-98.0 fL] 22.8 pg *LOW* (01/21/16 4:41 AM) 23.7 pg *LOW* (01/20/16 7:07 AM) 22.6 pg *LOW* (01/18/16 2:49 PM) MCH [27.0-31.0 pg] 31.4 g/dL *LOW* (01/21/16 4:41 AM) 32.5 g/dL (01/20/16 7:07 AM) 31.1 g/dL *LOW* (01/18/16 2:49 PM) MCHC [32.0-36.0 g/dL] 14.4 % (01/21/16 4:41 AM) 14.3 % (01/20/16 7:07 AM) 14.1 % (01/18/16 2:49 PM) RDW [11.5-14.5 %] 400 K/CMM (01/21/16 4:41 AM) 422 K/CMM (01/20/16 7:07 AM) 375 K/CMM (01/18/16 2:49 PM) Platelet [133-450 K/CMM] 7.3 fL *LOW* (01/21/16 4:41 AM) 7.7 fL (01/20/16 7:07 AM) 7.9 fL (01/18/16 2:49 PM) MPV [7.4-10.4 fL] 53.9 % (01/21/16 4:41 AM) 55.5 % (01/20/16 7:07 AM) 72.9 % (01/18/16 2:49 PM) Segs [45.0-75.0 %] 29.1 % (01/21/16 4:41 AM) 28.5 % (01/20/16 7:07 AM) 14.3 % *LOW* (01/18/16 2:49 PM) Lymphocytes [20.0-40.0 %] 10.5 % (01/21/16 4:41 AM) 9.5 % (01/20/16 7:07 AM) 11.1 % (01/18/16 2:49 PM) Monocytes [2.0-12.0 %] 5.6 % *HI* (01/21/16 4:41 AM) 5.8 % *HI* (01/20/16 7:07 AM) 1.2 % (01/18/16 2:49 PM) Eosinophils [0.0-4.0 %] 0.9 % (01/21/16 4:41 AM) 0.7 % (01/20/16 7:07 AM) 0.5 % (01/18/16 2:49 PM) Basophils [0.0-1.0 %] 5.2 K/CMM (01/21/16 4:41 AM) 5.4 K/CMM (01/20/16 7:07 AM) 13.9 K/CMM *HI* (01/18/16 2:49 PM) Segs-Bands # [1.5-8.1 K/CMM] 2.8 K/CMM (01/21/16 4:41 AM) 2.8 K/CMM (01/20/16 7:07 AM) 2.7 K/CMM (01/18/16 2:49 PM) Lymphocytes # [1.0-5.5 K/CMM] 1.0 K/CMM *HI* (01/21/16 4:41 AM) 0.9 K/CMM *HI* (01/20/16 7:07 AM) 2.1 K/CMM *HI* (01/18/16 2:49 PM) Monocytes # [0.0-0.8 K/CMM] 0.5 K/CMM (01/21/16 4:41 AM) 0.6 K/CMM *HI* (01/20/16 7:07 AM) 0.2 K/CMM (01/18/16 2:49 PM) Eosinophils # [0.0-0.5 K/CMM] 0.1 K/CMM (01/21/16 4:41 AM) 0.1 K/CMM (01/20/16 7:07 AM) 0.1 K/CMM (01/18/16 2:49 PM) Basophils # [0.0-0.2 K/CMM] 1+ *ABN* (01/21/16 4:41 AM) 1+ *ABN* (01/20/16 7:07 AM) 1+ *ABN* (01/18/16 2:49 PM) Microcyte [None Seen] 4 mm/hr (01/18/16 2:49 PM) Sed Rate [0-20 mm/hr] 15.2 seconds *HI* (01/18/16 3:44 PM) PT [12.0-14.7 seconds] 1.18 *HI* (01/18/16 3:44 PM) INR [0.85-1.17] 32.3 seconds (01/18/16 3:44 PM) PTT [22.9-35.8 seconds] Immunizations Given and Recorded Vaccine Date Status Refusal Reason influenza virus vaccine, inactivated 01/21/16 Given pneumococcal 23-valent vaccine 01/21/16 Given Procedures Procedure Date Related Diagnosis Body Site Incision and drainage of abscess (eg, 01/19/16 carbuncle, suppurative hidradenitis, cutaneous or subcutaneous abscess, cyst, furuncle, or paronychia); complicated or multiple LEEP 2004 Social History Social History Type Response Substance Abuse Use: None. Sexual Sexually active: No. Sexually active at age 17 Years. Number of current partners 0. Number of lifetime partners 17. Partner with STD? No. History of sexual abuse: No. Self Breast Exam No. Menstrual Period Started: Yes. Pedi Never . Exercise Exercise duration: 0. Employment/School Status: Employed. Operates hazardous equipment: No. Alcohol Current, Type Liquor. Frequency: 1-2 times per year. Smoking Status Never smoker; Concerns about tobacco use in household: No; Exposure to Tobacco Smoke None; Cigarette Smoking Last 365 Days No; Reg Smoking Cessation Counseling No Assessment and Plan Extracted from: Title: Clinical Document Author: Bautista Burrell MD Date: 01/21/16 SURGERY PROGRESS NOTE Bautista Burrell MD, FACS SUBJECTIVE feels better, pain improved, wants to go home OBJECTIVE VSS afebrile, wound clean with serosanguinous drainage, no purulence ASSESSMENT s/p I&D gluteal abscess PLAN -ok to discharge home once outpatient wound care arranged, po abx, patient may follow up with me in 1 week VitalsTmp(F)Tmp(C)[id number] 01/20 07:[id number]/73---7316--------- 01/20 03:[id number]--------- 01/19 22:[id number]/[id number]--------- 01/19 19:[id number]/[id number]--------- 01/19 15:4598.236.67dpzu220/66---6214--------- 24 Hr Tmax: 98.4F (36.89c) at 01/20 03:57Vital Signs are the last 5 in the past 48 hours. 24 Hr Tmin: 98.0F (36.67c) at 01/20 07:43Weights are the last 5 in 60 days, plus initial. DateWt(kg)Wt(lb)Ht(cm)Ht(in)MethodBMIBSA 01/17 (initial)136.42 300.12Measured .18 67.00Stated 24 Hr Point of Care Glucoses 01/20 0753Glucose POC91 01/19 2102Glucose BAP457 H 01/19 1712Glucose FMT008 H 01/19 1159Glucose DPD595 H Most Recent Scores: 01/21/16Pain Intensity NRS (0-10)0 01/20/16Glasgow Coma Score15 01/20/16[place] Fall Score4 01/20/16Braden Score23 Lines, Tubes, and Drains: 01/19/2016 21:40 Peripheral Lines: Hand Left 20 gauge Over the needle catheter Surgical Procedures: 01/19/16 09:25I&D GLUTEL ABSCESS [id number] Surgeon: Bautista Burrell MD (Service: GEN) I/O Intake OutputBalance 01/21/2016 7a-3p 0.00 0.00 0.00 3p-11p 0.00 0.00 0.00 11p-7a 0.00 0.00 0.00 Totals 0.00 0.00 0.00 As of 10:37 01/20/2016 7a-3p 546.00 0.00 546.00 3p-11p 755.00 0.00 755.00 11p-7a 50.00 0.00 50.00 Totals 1351.00 0.00 1351.00 01/19/2016 7a-3p 392.00 25.00 367.00 3p-11p 250.00 0.00 250.00 11p-7a 600.00 0.00 600.00 Totals 1242.00 25.00 1217.00 24hr Labs 01/20 0753 Glucose POC91 01/20 0441 Glucose Lvl98 BUN7 Creatinine Lvl0.67 Sodium Xtz129 Potassium Lvl4.3 Chloride Mjg540 CO226 AGAP12.3 Calcium Lvl8.4 L [id number] WBC9.6 RBC4.24 Hgb9.6 L Hct30.7 L MCV72.4 L MCH22.8 L MCHC31.4 L RDW14.4 Mfqnkcyn749 MPV7.3 L Segs53.9 Uwuhegovl79.5 Hqxdkacdijn41.1 Eosinophils5.6 H Basophils0.9 Segs-Bands #5.2 Lymphocytes #2.8 Monocytes #1.0 H Eosinophils #0.5 Basophils #0.1 Microcyte1+ 01/19 2102 Glucose KHL653 H 01/19 1712 Glucose EGY921 H 01/19 1159 Glucose FFA892 H Scheduled Meds (4): 01/18/16 14:00 clindamycin 600 mg IVPB ABXQ8H 100 ml/hr [Last Rescheduled Dt/Tm: 01/18/16 22:00:00 CDT] [eMAR Schedule: (01/21/16) 06:00, 14:00, 22:00] 01/18/16 16:00 heparin (heparin 5000 units/mL injectable solution) 5,000 unit SUB- Q Q8H [Last Rescheduled Dt/Tm: 01/20/16 6:00:00 CDT] [eMAR Schedule: (01/21/16) 06:00, 14:00, 22:00] 01/18/16 17:32 lisinopril 20 mg PO Daily [Last Rescheduled Dt/Tm: 01/18/16 17:32:00 CDT] [eMAR Schedule: (01/21/16) 09:00] [Future Dose: 01/22/16 09:00] 01/21/16 10:00 pneumococcal 23-valent vaccine (Pneumovax 23) 0.5 mL IM Daily [eMAR Schedule: (01/21/16) 10:00] [Future Dose: 01/22/16 09:00] Unscheduled Meds: None PRN Meds (11): 01/18/16 13:38 Dextrose 50% in Water IV (Dextrose 50% Syringe) 12.5 gm IVP PRN 01/18/16 13:38 Dextrose 50% in Water IV (Dextrose 50% Syringe) 25 gm IVP PRN 01/20/16 16:11 acetaminophen-codeine (Tylenol with Codeine #3 oral tablet) 1 tab PO Q6H 01/18/16 13:38 glucagon 1 mg IM PRN 01/18/16 13:38 insulin aspart 2 unit SUB-Q TID-Before Meals 01/18/16 13:38 insulin aspart 4 unit SUB-Q TID-Before Meals 01/18/16 13:38 insulin aspart 6 unit SUB-Q TID-Before Meals 01/18/16 13:38 insulin aspart 8 unit SUB-Q TID-Before Meals 01/18/16 13:38 insulin aspart 10 unit SUB-Q TID-Before Meals 01/18/16 13:30 morphine Sulfate 2 mg IVP Q4H 01/18/16 13:30 naproxen 500 mg PO Q8H One Time Meds: None Continuous Infusions: None
[2018-01-16] MEDS ORDERED: KETOROLAC TROMETHAMINE 30 MG/ML VIAL IV STA (15:42)
[2018-01-16] MEDS ORDERED: VANCOMYCIN 1GM/NS 250 ML 250 ML IV SCH ×2 (15:45→16:15)
[2018-01-16] MEDS ORDERED: FAMOTIDINE 20 MG/2 ML VIAL IV STA (15:54)
[2018-01-16] MEDS ORDERED: LABETALOL HCL 100 MG TAB PO ONE (16:00)
[2018-01-16] MEDS ORDERED: DIPHENHYDRAMINE HCL INJ 50 MG/ML VIAL IV ONE (16:00)
[2018-01-16 16:22] LABS: BASOPHILS % 0.2 % (0.0-1.0); EOSINOPHILS # (AUTO) 0.1 (0.0-0.4); EOSINOPHILS % 0.3 % (0.0-6.0); HEMOGLOBIN 11.3 g/dL (12.0-16.0); LYMPHOCYTES # (AUTO) 2.8 (1.0-3.2); LYMPHOCYTES % 19.1 % (18.0-39.1); MEAN CORPUSCULAR HEMOGLOBIN 24.2 pg (28-32); MEAN CORPUSCULAR HGB CONC 31.4 g/dL (31-35); MEAN CORPUSCULAR VOLUME 77.3 fL (81-99); MONOCYTES % 6.9 % (4.4-11.3); NEUTROPHILS # (AUTO) 10.6 (2.1-6.9); PLATELET COUNT 394 x10e3/uL (140-360); RED BLOOD COUNT 4.66 x10e6/uL (3.6-5.1); RED CELL DISTRIBUTION WIDTH 14.6 % (11.7-14.4)
[2018-01-16] MEDS: MUPIROCIN 2% OINT 22 GM TUBE TOP SCH (16:31)
[2018-01-16 16:45] LABS: ALANINE AMINOTRANSFERASE 12 IU/L (0-55); ALBUMIN 3.6 g/dL (3.5-5.0); ALBUMIN/GLOBULIN RATIO 0.8 (0.8-2.0); ALKALINE PHOSPHATASE 87 IU/L (40-150); ANION GAP 16.7 mmol/L (8-16); BLOOD UREA NITROGEN 7 mg/dL (7-26); BUN/CREATININE RATIO 8 (6-25); CARBON DIOXIDE 23 mmol/L (22-29); CHLORIDE 103 mmol/L (98-107); CHOL/HDL RATIO 2.4 (3.0-3.6); CHOLESTEROL 126 MD/DL (0-199); CREATININE, SERUM 0.85 mg/dL (0.57-1.11); EST GLOMERULAR FILTRATION RATE > 60 ML/MIN (60-); GLUCOSE 116 mg/dL (74-118); HDL CHOLESTEROL 52 MG/DL (40-60); LDL CHOLESTEROL 64 MG/DL (60-130); POTASSIUM 3.7 mmol/L (3.5-5.1); SODIUM 139 mmol/L (136-145); TRIGLYCERIDES 51 MG/DL (0-149)
[2018-01-16] MEDS ORDERED: SODIUM CHLORIDE FLUSH 10 ML SYR INJ PRN (17:15)
[2018-01-16] MEDS ORDERED: ACETAMINOPHEN 325 MG TAB PO PRN (17:15)
[2018-01-16] MEDS ORDERED: ONDANSETRON HCL INJ 2 MG/ML VIAL IV PRN (17:15)
[2018-01-16] MEDS ORDERED: DOXYCYCLINE HY100 MG PO (18:21)
[2018-01-16] MEDS ORDERED: LISINOPRIL20 MG PO (18:21)
[2018-01-16] MEDS ORDERED: VICTOZA 2-0.6 MG/0.1 SC (18:21)
--- NOTE | 2018-01-16 18:31 | Diagnostic Imaging Report ---
EXAM: US BREAST COMPLETE LEFT INDICATION: Breast cellulitis/abscess. Left breast pain starting Sunday ^Breast Cellulitis/Abscess COMPARISON: None TECHNIQUE: Transverse and sagittal images were performed of the left breast. A radiologist was not present at the time of scanning. FINDINGS: A 4.6 x 1.4 x 3.4 cm complex collection with anechoic fluid and internal echoes is seen at the 8:00 position, 7 cm from the nipple. There is soft tissue edema and skin thickening of the regional soft tissues. IMPRESSION: Complex fluid collection in the left breast with surrounding soft tissue edema likely representing an abscess. Note: Ultrasound is not a screening modality for the breast. It is used to determine whether palpable or mammographically demonstratable mass is cystic or solid. Some solid breast masses are isoechoic with the remainder of the tissue and cannot be detected sonographically. Signed by: DR. Hitesh Jenkins MD on 01/16/2018 6:28 PM
[2018-01-16 21:11] VITALS: BP 162/88
[2018-01-17 00:17] VITALS: BP 142/67
[2018-01-17] MEDS ORDERED: DIPHENHYDRAMINE HCL INJ 50 MG/ML VIAL IV ONE (02:45)
[2018-01-17] MEDS: VANCOMYCIN 1GM/NS 250 ML 250 ML IV SCH ×2 (06:01→18:02)
[2018-01-17 08:10] VITALS: BP 142/77
[2018-01-17 08:13] LABS: BASOPHILS # (AUTO) 0.1 (0.0-0.1); BASOPHILS % 0.4 % (0.0-1.0); EOSINOPHILS # (AUTO) 0.1 (0.0-0.4); EOSINOPHILS % 0.6 % (0.0-6.0); HEMOGLOBIN 10.5 g/dL (12.0-16.0); LYMPHOCYTES # (AUTO) 3.4 (1.0-3.2); LYMPHOCYTES % 24.5 % (18.0-39.1); MEAN CORPUSCULAR VOLUME 79.9 fL (81-99); MONOCYTES # (AUTO) 1.3 (0.2-0.8); MONOCYTES % 8.9 % (4.4-11.3); NEUTROPHILS # (AUTO) 9.2 (2.1-6.9); NEUTROPHILS % 65.3 % (38.7-80.0); PLATELET COUNT 351 x10e3/uL (140-360); RED BLOOD COUNT 4.38 x10e6/uL (3.6-5.1); RED CELL DISTRIBUTION WIDTH 14.6 % (11.7-14.4)
[2018-01-17 08:23] LABS: ALANINE AMINOTRANSFERASE 11 IU/L (0-55); ALBUMIN 3.1 g/dL (3.5-5.0); ALBUMIN/GLOBULIN RATIO 0.8 (0.8-2.0); ALKALINE PHOSPHATASE 73 IU/L (40-150); ANION GAP 15.4 mmol/L (8-16); BLOOD UREA NITROGEN 8 mg/dL (7-26); BUN/CREATININE RATIO 10 (6-25); CALCIUM 9.3 mg/dL (8.4-10.2); CARBON DIOXIDE 22 mmol/L (22-29); CHLORIDE 104 mmol/L (98-107); CREATININE, SERUM 0.81 mg/dL (0.57-1.11); EST GLOMERULAR FILTRATION RATE > 60 ML/MIN (60-); GLUCOSE 104 mg/dL (74-118); POTASSIUM 3.4 mmol/L (3.5-5.1); SODIUM 138 mmol/L (136-145)
[2018-01-17 08:56] VITALS: BP 142/77
[2018-01-17] MEDS ORDERED: MUPIROCIN 2% OINT 22 GM TUBE TOP SCH (09:00)
[2018-01-17] MEDS: MUPIROCIN 2% OINT 22 GM TUBE TOP SCH (09:00)
[2018-01-17 11:56] VITALS: BP 167/86
[2018-01-17] MEDS ORDERED: POTASSIUM CHLORIDE 20 MEQ TAB CR PO STA (14:23)
[2018-01-17] MEDS ORDERED: HYDROCODONE/APAP 5MG-325MG TAB PO PRN (14:30)
[2018-01-17] MEDS ORDERED: PREDNISONE 20 MG TAB PO ONE (14:30)
[2018-01-17] MEDS ORDERED: DEXTROSE 50% SYRINGE 50 ML IV PRN (14:30)
[2018-01-17 16:00] VITALS: BP 145/68
--- NOTE | 2018-01-17 16:49 | History and Physical ---
CHIEF COMPLAINT: Left breast abscess and also underlying pain. HISTORY OF PRESENT ILLNESS: This is a 32-year-old -[place] female with past medical history of type 2 diabetes, hypertension, who comes into the ED with complaints of a left breast abscess that has been ongoing for the last 1 week. Patient reports that she has had chronic abscesses due to chronic hidradenitis and which she follows up with a solar electric practitioner as an outpatient. He was always taking oral doxycycline but of note, this left breast access has not improved and came into the ED for further evaluation. She denies any fever at home. She does report having significant pain to the left breast area. She has never had any breast drainages in terms of incision and drainage, but has had other abscesses drained in the past. Patient seen and evaluated at bedside on the medical floor, currently doing well with no other complaints at this time. REVIEW OF SYSTEMS PERTINENT POSITIVE: Has a left breast abscess with tenderness. PERTINENT NEGATIVE: Denies any chest pain, palpitation, nausea, vomiting, diarrhea, dysuria, hematuria, frequency, urgency, lightheadedness, dizziness, abdominal pain, headache, shortness of breath, cough, congestion, fever or any other complaints. The rest of the 14-point review of systems have been reviewed with the patient and are negative. ALLERGIES: PENICILLINS. HOME MEDICATIONS: Doxycycline 100 mg p.o. b.i.d., lisinopril 20 mg daily. She does take Victoza 0.6 mg injection subcu daily. PAST MEDICAL HISTORY: She has chronic hidradenitis, type 2 diabetes, and hypertension. SURGICAL HISTORY: Has had multiple incisions and drainages of multiple abscesses. FAMILY HISTORY: Hypertension and diabetes. SOCIAL HISTORY: No drugs. No alcohol. Does not smoke. Good social support. VITAL SIGNS: Temperature is 97.1, pulse 78, respiratory rate is 18, blood pressure 167/86, and pulse ox 100% on room air. LAB FINDINGS: Show a white count of 14, hemoglobin 10.5, hematocrit is 35, MCV 79, and platelets of 351. Chemistry; sodium 138, potassium is 3.4, chloride 104, bicarb 22, anion gap of 15, BUN is 8, creatinine 0.8, glucose is 104, and calcium 9.3. LFTs were normal. MICROBIOLOGY: Blood cultures are pending. IMAGING STUDIES: Breasts ultrasound showed there is a palpable mass or cystic area or solid. There is some left breast mass cannot be detected on sonography. PHYSICAL EXAM GENERAL: Not in acute distress, alert and oriented x3, cooperative on examination. HEENT: Head normocephalic, atraumatic. Eyes: Pupils equal, round and reactive to light bilaterally. Extraocular movements intact bilaterally. NECK: Supple with good range of motion. No evidence of any erythema or exudates in the posterior pharynx, has poor dentition. PULMONARY: Clear to auscultation bilaterally. No wheezing, no rales, no rhonchi, no fine crackles appreciated. CARDIOVASCULAR: Positive S1, S2. No murmurs, rubs, or gallops appreciated. ABDOMEN: Soft, nondistended, and nontender to palpation. Bowel sounds present. MUSCULOSKELETAL: Strength is 5/5 throughout. No evidence of any musculoskeletal deficit on examination. No weakness appreciated. NEUROLOGICAL: Cranial nerves II through XII are grossly intact. No evidence of any neurological deficit on exam. SKIN: Intact. Warm to touch. Good cap refill. PSYCHIATRIC: Normal affect and mood. EXTREMITIES: No edema. Good range of motion throughout. BREAST: I had the nurse present next to me when we evaluated her left breast abscess. It is erythematic. It is tender to palpation. It is very indurated on the medial aspect of the left breast. IMPRESSION 1. Left breast abscess with chronic hidradenitis. 2. Type 2 diabetes. 3. Morbid obesity. 4. Hypertension. PLAN: At this time, will get general surgery for incision and drainage. We will also have ID for antibiotic regimen. We will start her on IV vancomycin and Zosyn. We will have some pain control. Put on insulin sliding scale for her diabetes. Replace her potassium with 40 mEq p.o. x1. Discontinue IV fluids, put on Lovenox for DVT prophylaxis. She reports having a questionable rash versus hives from possibly lisinopril, which we will discontinue and monitor her blood pressure accordingly. We will give her a dose of steroids to see if that would help. We will put on pain control as well. Job#: [id number] BRIONNA
[2018-01-17] MEDS: ENOXAPARIN SOD INJ 40 MG/0.4 ML SYR SC SCH (17:00)
--- NOTE | 2018-01-17 17:20 | Consultation ---
DATE OF CONSULTATION: January 17, 2018 REASON FOR CONSULTATION: Left breast abscess. Thanks for asking me to see this patient. HISTORY OF PRESENT ILLNESS: This is a 32-year-old female who has history of recurrent infections before skin infections who comes in with redness and swelling of her left breast, no specific trauma. The patient was admitted and infectious disease was consulted. PAST MEDICAL HISTORY: Skin infection before. PAST SURGICAL HISTORY: As above. ALLERGIES: NKA. SOCIAL HISTORY: There is no smoking, drug abuse or alcohol abuse. PHYSICAL EXAMINATION: GENERAL: She is currently alert and oriented and does not seem to be in acute distress. VITALS: Stable. Currently afebrile. HEENT: She is not icteric. NECK: Supple. CHEST: Clear. HEART: S1 and S2. No murmur. ABDOMEN: Soft. BREASTS: The left breast has redness and edema and induration. IMPRESSION: Breast abscess. RECOMMENDATIONS: Recommend surgical evaluation, ultrasound of the breast. I agree with vancomycin. Wound cultures. Will follow. Job#: [id number]
[2018-01-17 20:00] VITALS: BP 155/87
[2018-01-18] VITALS: BP 125/62
[2018-01-18 04:00] VITALS: BP 130/61
[2018-01-18 06:07] LABS: BASOPHILS % 0.1 % (0.0-1.0); EOSINOPHILS # (AUTO) 0.1 (0.0-0.4); EOSINOPHILS % 0.5 % (0.0-6.0); HEMATOCRIT 35.8 % (34.2-44.1); HEMOGLOBIN 11.2 g/dL (12.0-16.0); LYMPHOCYTES # (AUTO) 3.2 (1.0-3.2); LYMPHOCYTES % 21.6 % (18.0-39.1); MEAN CORPUSCULAR HEMOGLOBIN 24.4 pg (28-32); MEAN CORPUSCULAR HGB CONC 31.3 g/dL (31-35); NEUTROPHILS # (AUTO) 10.3 (2.1-6.9); NEUTROPHILS % 70.5 % (38.7-80.0); PLATELET COUNT 406 x10e3/uL (140-360); RED BLOOD COUNT 4.59 x10e6/uL (3.6-5.1); RED CELL DISTRIBUTION WIDTH 14.6 % (11.7-14.4)
[2018-01-18 06:28] LABS: ANION GAP 15.1 mmol/L (8-16); BLOOD UREA NITROGEN 9 mg/dL (7-26); BUN/CREATININE RATIO 11 (6-25); CARBON DIOXIDE 24 mmol/L (22-29); CHLORIDE 104 mmol/L (98-107); EST GLOMERULAR FILTRATION RATE > 60 ML/MIN (60-); GLUCOSE 116 mg/dL (74-118); POTASSIUM 4.1 mmol/L (3.5-5.1); SODIUM 139 mmol/L (136-145)
[2018-01-18] MEDS: VANCOMYCIN 1GM/NS 250 ML 250 ML IV SCH ×2 (07:14→18:09)
[2018-01-18 07:30] VITALS: BP 140/77
[2018-01-18 08:15] VITALS: BP 140/77
[2018-01-18] MEDS: MUPIROCIN 2% OINT 22 GM TUBE TOP SCH (09:00)
[2018-01-18] MEDS ORDERED: HYDROGEN PEROXIDE 120 ML BTL ONE (09:55)
[2018-01-18] MEDS ORDERED: BUPIVACAINE 0.25%/EPI 30ML SDV INJ ONE (09:55)
[2018-01-18] MEDS ORDERED: FENTANYL CITRATE/PF 100MCG/2 ML INJ ONE ×2 (11:21→18:44)
--- NOTE | 2018-01-18 12:34 | Operative Report ---
DATE OF PROCEDURE: January 18, 2018 PREOPERATIVE DIAGNOSIS: Abscesses of the left breast. POSTOPERATIVE DIAGNOSIS: Abscesses of the left breast. PROCEDURE PERFORMED: Incision, drainage, and debridement of abscesses of the left breast. ANESTHESIA: General. ESTIMATED BLOOD LOSS: Minimal. DRAINS: None. COMPLICATIONS: None. INDICATIONS AND FINDINGS: A 32-year-old diabetic female with a history of recurrent soft tissue infections, now is admitted with an abscess of the left breast, was partially drained and surgery consult was requested for further care. INTRAOPERATIVE FINDINGS: The patient had a partially drained abscess left breast located in the medial aspect of it around 8 o'clock. Within the abscess cavity, there was a granulation tissue. There were a couple of small pocket of pus separate from that, that were located in the presternal area. All of those were debrided too. DESCRIPTION OF THE PROCEDURE: With the patient lying on the operating table in the supine position after administration of general anesthesia, she was prepped and draped for incision and drainage and debridement of abscess of the left breast. The main abscess was located in the medial part of the left breast around the 8 o'clock position. It was partially draining to the outside. The skin of it was excised. The cavity entered and loculations broken down. Culture and sensitivities were taken. There was granulation tissue that was debrided and cauterized. The wound irrigated and then packed with iodoform gauze. The same procedure was repeated on the 2 smaller abscesses, each measured about 1 cm or less each. The skin was excised. The small pocket was drained and then the wound was cauterized and it was also packed with iodoform gauze. Sterile dressing was applied. The patient tolerated the procedure well, was taken to recovery room in stable condition. Job#: [id number] BRIONNA
[2018-01-18] MEDS ORDERED: SEVOFLURANE INHAL SOLN 250 ML PEN BTL ONE (12:35)
[2018-01-18] MEDS ORDERED: PROPOFOL IV EMULSION 10 MG/ML 20 ML VIAL ONE (12:35)
[2018-01-18] MEDS ORDERED: LIDOCAINE HCL 2% LOCAL INJ 5 ML SDV VIAL INJ ONE (12:35)
[2018-01-18] MEDS ORDERED: DEXAMETHASONE SOD PHOS INJ 4 MG/ML VIAL ONE (12:35)
[2018-01-18] MEDS ORDERED: ONDANSETRON HCL INJ 2 MG/ML VIAL ONE (12:35)
--- NOTE | 2018-01-18 14:14 | Progress Note ---
DATE: January 18, 2018 SUBJECTIVE: The patient had incision and drainage of her left breast abscess performed this morning. The patient currently doing well. The pain is well controlled. OBJECTIVE VITAL SIGNS: Temperature 96.1, pulse 70, respiratory rate 19, blood pressure 140/77, pulse oximetry 98% on room air. GENERAL: In no acute distress, alert and oriented x3, cooperative on examination. HEENT: Head is normocephalic, atraumatic. Eyes: Pupils equal, round and reactive to light bilaterally. Extraocular movements intact bilaterally. Throat with no evidence of erythema or exudates in the posterior pharynx. Has poor dentition. NECK: Supple with good range of motion. PULMONARY: Clear to auscultation bilaterally. No wheezing, no rales, no rhonchi or crackles appreciated. CARDIOVASCULAR: Positive S1 and S2, no murmurs, rubs or gallops appreciated. ABDOMEN: Soft, nondistended, nontender on palpation. Bowel sounds were present. MUSCULOSKELETAL: Strength 5/5 throughout, no evidence of musculoskeletal deficit on exam. No weakness appreciated. NEUROLOGIC: Cranial nerves II-XII grossly intact. No evidence of neurological deficit on examination. SKIN: Intact. Warm to touch. Good capillary refill. EXTREMITIES: No edema. Good range of motion throughout. PSYCHIATRIC: Normal affect and mood. LABORATORY DATA: White count of 14.6, hemoglobin 11.2, hematocrit 35.8 and platelets of 406,000. Chemistry: Sodium 139, potassium 4.1, chloride 104, bicarb 24, anion gap 15, BUN ___, creatinine 0.8. Glucose is 116. Calcium is 10. Microbiology: Blood cultures no growth. Wound cultures are pending. IMAGING: None. IMPRESSION 1. Left breast abscess with chronic hidradenitis. 2. Type 2 diabetes. 3. Morbid obesity. 4. Hypertension. PLAN: At this time, the patient had incision and drainage performed this morning by general surgery. Wound cultures are pending. Continue with IV antibiotics. ID is following as well. Once the wound cultures are back, will be able to determine which oral antibiotic to give her for discharge. Vital signs are stable at this time. Will continue to monitor very closely. The patient will likely be here through the weekend until cultures are back. Job#: [id number]
[2018-01-18] MEDS: ENOXAPARIN SOD INJ 40 MG/0.4 ML SYR SC SCH (17:34)
[2018-01-18] MEDS ORDERED: MIDAZOLAM HCL 2 MG/2 ML VIAL ONE (18:44)
[2018-01-18 20:00] VITALS: BP 138/61
[2018-01-19] VITALS (10 sets, daily range): BP systolic 129–176; BP diastolic 60–86
[2018-01-19] MEDS: VANCOMYCIN 1GM/NS 250 ML 250 ML IV SCH ×2 (06:00→18:11)
[2018-01-19] MEDS: NON-FORMULARY MEDICATION SQ SCH (09:00)
[2018-01-19] MEDS: MUPIROCIN 2% OINT 22 GM TUBE TOP SCH (09:24)
--- NOTE | 2018-01-19 16:01 | Progress Note ---
DATE: January 19, 2018 OBJECTIVE VITAL SIGNS: Temperature is 96.4, pulse 65, respiratory rate is 18, blood pressure is 146/69. Her pulse ox is 100% on room air. LAB FINDINGS: Show white count 14.6, hemoglobin 11, hematocrit 35, platelets of 406. Chemistry; sodium 139, potassium 4.1, chloride 104, bicarb 24, anion gap is 15, BUN is 9, creatinine is 0.8, glucose is 116. MICROBIOLOGY: Blood cultures were negative. Wound cultures show no organisms, moderate wbc's, pending final growth. PHYSICAL EXAMINATION GENERAL: Not in acute distress, alert and oriented x3, cooperative on examination. HEENT: Head is normocephalic, atraumatic. Eyes; pupils equal, round and reactive to light bilaterally. Extraocular movements intact bilaterally. Throat, no evidence of any erythema or exudates in the posterior pharynx. Has poor dentition. NECK: Supple with good range of motion. PULMONARY: Clear to auscultation bilaterally. No wheezing, no rales, no rhonchi, no crackles appreciated. CARDIOVASCULAR: Positive S1 and S2. No murmurs, rubs, or gallops appreciated. ABDOMEN: Soft, nondistended, nontender to palpation. Bowel sounds were present. MUSCULOSKELETAL: Strength 5/5 throughout. No evidence of musculoskeletal deficit on exam. No weakness appreciated. NEUROLOGIC: Cranial nerves II through XII are grossly intact. No evidence of neurological deficit on examination. SKIN: Intact. Warm to touch. Good capillary refill. PSYCHIATRIC: Normal affect and mood. EXTREMITIES: No edema. Good range of motion throughout. IMPRESSION 1. Left breast abscess due to chronic hidradenitis, status post incision and drainage performed on 01/17/2018 by general surgery. 2. Type 2 diabetes. 3. Morbid obesity. 4. Hypertension. PLAN: At this time, ID and general surgery are following. Continue with IV antibiotics. Pending wound cultures and final growth identification. Her pain is well controlled and tolerable. 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 I discussed with her that if I could possibly discharge her tomorrow and if cleared by general surgery and ID, I will be able to discharge her tomorrow. At this time, I am not sure about that plan, and we will continue to follow accordingly. We will do local wound care daily. Job#: [id number] LPA
[2018-01-19] MEDS: ENOXAPARIN SOD INJ 40 MG/0.4 ML SYR SC SCH (17:33)
[2018-01-20] VITALS: BP 143/66
[2018-01-20 04:00] VITALS: BP 147/65
[2018-01-20 05:38] LABS: BASOPHILS # (AUTO) 0.1 (0.0-0.1); BASOPHILS % 0.7 % (0.0-1.0); EOSINOPHILS # (AUTO) 0.1 (0.0-0.4); EOSINOPHILS % 1.6 % (0.0-6.0); HEMATOCRIT 34.9 % (34.2-44.1); HEMOGLOBIN 9.8 g/dL (12.0-16.0); LYMPHOCYTES # (AUTO) 3.1 (1.0-3.2); LYMPHOCYTES % 41.8 % (18.0-39.1); MEAN CORPUSCULAR HEMOGLOBIN 24.1 pg (28-32); MEAN CORPUSCULAR HGB CONC 28.1 g/dL (31-35); MONOCYTES # (AUTO) 0.7 (0.2-0.8); MONOCYTES % 9.7 % (4.4-11.3); NEUTROPHILS # (AUTO) 3.4 (2.1-6.9); NEUTROPHILS % 45.9 % (38.7-80.0); PLATELET COUNT 309 x10e3/uL (140-360); RED BLOOD COUNT 4.06 x10e6/uL (3.6-5.1); RED CELL DISTRIBUTION WIDTH 14.6 % (11.7-14.4)
[2018-01-20] MEDS: VANCOMYCIN 1GM/NS 250 ML 250 ML IV SCH (06:05)
[2018-01-20 06:48] LABS: ANION GAP 16.3 mmol/L (8-16); BLOOD UREA NITROGEN 16 mg/dL (7-26); BUN/CREATININE RATIO 15 (6-25); CALCIUM 9.4 mg/dL (8.4-10.2); CARBON DIOXIDE 24 mmol/L (22-29); CHLORIDE 108 mmol/L (98-107); CREATININE, SERUM 1.04 mg/dL (0.57-1.11); EST GLOMERULAR FILTRATION RATE > 60 ML/MIN (60-); GLUCOSE 96 mg/dL (74-118); POTASSIUM 4.3 mmol/L (3.5-5.1); SODIUM 144 mmol/L (136-145)
[2018-01-20 07:15] VITALS: BP 158/74
[2018-01-20 07:47] VITALS: BP 158/74
[2018-01-20] MEDS: NON-FORMULARY MEDICATION SQ SCH (09:00)
[2018-01-20] MEDS: MUPIROCIN 2% OINT 22 GM TUBE TOP SCH (09:07)
[2018-01-20 11:52] VITALS: BP 161/79
[2018-01-20 15:49] VITALS: BP 159/74
[2018-01-20] MEDS ORDERED: TYLENOL WITH C1 EACH PO (16:19)
[2018-01-20] MEDS ORDERED: LOSARTAN POTAS100 MG PO (16:33)
--- NOTE | 2018-01-21 02:35 | Discharge Summary ---
FINAL DISCHARGE DIAGNOSES 1. Left breast abscess due to chronic hidradenitis, status post incision and drainage performed on January 17, 2018 by the general surgery. 2. Type 2 diabetes. 3. Morbid obesity. 4. Hypertension. CONSULTANTS: General surgery and ID. VITAL SIGNS: Temperature is 98.3, pulse is 71, respiratory rate is 18, blood pressure is 161/79, pulse oximetry 98% on room air. LAB FINDINGS: Show white count 7.4, hemoglobin 9.8, hematocrit 35, platelets 309,000. Chemistry; sodium 144, potassium 4.3, chloride 108, bicarb 24, anion gap is 16, BUN 16, creatinine 1, glucose 96, and calcium 9.4. MICROBIOLOGY: Blood cultures, no growth. Wound cultures showed no growth after 2 days. IMAGING STUDIES: Breast ultrasound showed impression of complex fluid collection in the left breast with surrounding soft tissue edema likely representing an abscess. HOSPITAL COURSE: This is a 32-year-old -[place] female, who came in with complaints of left breast abscess and induration. General surgery and ID were consulted. Patient was on IV antibiotics. Patient underwent an incision and drainage on January 17, 2018 by general surgery. Wound cultures showed no growth. Patient was on IV antibiotics while here. I discussed case with ID and recommended for doxycycline 100 mg p.o. b.i.d. for 3 weeks. Patient was doing well with no other complaints. She has local wound packing and wound care. Patient was educated and admitted to local wound care. Patient needs to follow with ID and general surgery in the next 1 week. On discharge, vital signs were stable, laboratories were stable. Labs remained stable. Patient was seen, evaluated, and examined thoroughly on the day of discharge, no other complaints. Patient verbalized understanding and agrees to plan of care. FOLLOWUP: Followup appointment was made as an outpatient with the primary care physician in 1 week and general surgery and ID in the next 1 week. MEDICATIONS: See med reconciliation form including doxycycline 100 mg 1 tab p.o. q. 12 hours times 3 weeks. Also Tylenol #3 1 tab every 4 to 6 hours as needed for pain, #40 tablets were given. DISPOSITION: Home. CONDITION: Stable. DIET: Heart healthy. In the event of worsening symptoms, patient advised to come back to the ED for further evaluation. Discharge summary took greater than 35 minutes. Job#: [id number] GARFIELD
== END 2018-01-20 17:35 | disposition home or self-care (01) | DRG 584 ==
LOC: ER 15:12 → ERHOLD 17:18 → MED/SURG3 19:57
PROVIDERS: ADMIT Internal Medicine; ATTEND Internal Medicine
PROC: 0HBUXZZ (ICD-10-PCS; 2018-01-18)
PROC: 0HBU0ZZ Excision of Left Breast, Open Approach (ICD-10-PCS; 2018-01-18)
PROC: 0H9U0ZZ Drainage of Left Breast, Open Approach (ICD-10-PCS; principal; 2018-01-18 12:30)
DX: N61.1 Abscess of the breast and nipple (principal); Z68.42 Body mass index [BMI] 45.0-49.9, adult; E66.01 Morbid (severe) obesity due to excess calories; I10 Essential (primary) hypertension; E11.9 Type 2 diabetes mellitus without complications; Z88.0 Allergy status to penicillin; Z79.4 Long term (current) use of insulin
CPT/HCPCS: 36415; 80048; 80053; 80061; 80202; 82948; 83036; 84702; 85025; 87040; 87071; 87075; 87205; 88305; 99284; J1100; J1200; J1650; J1885; J2001; J2250; J2405; J3370; J7512

== ENCOUNTER 2018-10-18 17:37 | Emergency (ER) | payer BC ==
[~2018-10-18] VITALS: Ht 170.2 cm; Wt 130.6 kg
[~2018-10-18 17:37] MED LIST changes: +AMLODIPINE BESY10 MG PO; +BENICAR20 MG PO; +DOXYCYCLINE HY100 MG PO; +LISINOPRIL20 MG PO; +LOSARTAN POTAS100 MG PO; +METFORMIN HCL500 MG PO; +SPIRONOLACTONE25 MG PO; +TYLENOL WITH C1 EACH PO; +VICTOZA 2-0.6 MG/0.1 SC
--- OUTSIDE RECORDS SUMMARY | 2018-10-18 17:41 | XMS REPORT ---
Author [facility] Address Unknown Phone Unavailable Care Team Providers Care Road Maker Name Role Phone JOSE MANUEL EDDY Unavailable Unavailable Problems This patient has no known problems. Allergies, Adverse Reactions, Alerts This patient has no known allergies or adverse reactions. Medications This patient has no known medications. Results Test Description Test Time Test Comments Text Results Atomic Results Result Comments US BREAST COMPLETE LEFT 2018-01-16 18:22:00 [place] [address] Patient Name: SUSAN GARCIA MR #: [id number] : 1985 Age/Sex: 32/F Req #: [id number] [facility] Physician: JOSE MANUEL EDDY MD Ordered by: ANTONIO BLAND MD Report #: [id number] Location: [facility] Room/Bed: [place] [address] Procedure: [id number] US/US BREAST COMPLETE LEFT Exam Date: 01/16/18 Exam Time: 1745 REPORT STATUS: Signed EXAM: US BREAST COMPLETE LEFT INDICATION: Breast cellulitis/abscess. Left breast pain starting Sunday Breast Cellulitis/Abscess COMPARISON: None TECHNIQUE: Transverse and sagittal images were performed of the left breast. A radiologist was not present at the time of scanning. FINDINGS: A 4.6 x 1.4 x 3.4 cm complex collection with anechoic fluid and internal echoes is seen at the 8:00 position, 7 cm from the nipple. There is soft tissue edema and skin thickening of the regional soft tissues. IMPRESSION: Complex fluid collection in the left breast with surrounding soft tissue edema likely representing an abscess. Note: Ultrasound is not a screening modality for the breast. It is used to determine whether palpable or mammographically demonstratable mass is cystic or solid. Some solid breast masses are isoechoic with the remainder of the tissue and cannot be detected sonographically. Signed by: DR. Hitesh Alejo MD on 01/16/2018 6:28 PM Dictated By: HITESH ALEJO MD 27 Transcribed By: TRANG on 01/16/181827 COPY TO: ANTONIO BLAND MD
--- OUTSIDE RECORDS SUMMARY | 2018-10-18 17:41 | XMS REPORT | Continuity of Care Document ---
Author Author [employer] Address Unknown Phone Unavailable Care Team Providers Care Dough Panner Name Role Phone [employer] Unavailable Unavailable Problems Problem Status Onset Date Classification Date Reported Comments Source BILATERAL PILONIDAL ABSCESS, FEBRILE. LE Active 01/18/2016 [facility] Diabetes Resolved 04/02/2014 Problem 01/24/2016 [facility] Anxiety Resolved Problem 01/24/2016 [facility] Female hirsutism Resolved Problem 01/24/2016 [facility] Family history of MRSA infection Resolved Problem 01/24/2016 [facility] History of PCOS Resolved Problem 01/24/2016 [facility] Chronic hypertension Resolved Problem 01/24/2016 [facility] Bipolar affective Resolved Problem 01/24/2016 [facility] Depression Resolved Problem 01/24/2016 [facility] Morbid obesity Resolved Problem 01/24/2016 [facility] Acne inversa Resolved Problem 01/24/2016 [facility] Morbid obesity Active Problem 02/29/2016 [id number] Abscess of buttock Active Diagnosis 02/29/2016 [id number] Hyperglycemia due to type 2 diabetes mellitus Active Problem 02/29/2016 [id number] Cellulitis Active Diagnosis 02/29/2016 [id number] PILONIDAL CYST WITH ABSCESS Active [facility] Medications Medication Details Route Status Patient Instructions Ordering Provider Order Date Source Mupirocin 1 application to affected area Externally Active 2 % Externally Three times a day Hasan 02/09/2016 [id number] Pneumovax 23 0.5 mL, Route: IM, Drug Form: INJ, Daily, Start date: 01/21/16 10:00:00 CDT, Stop date: 01/21/16 15:00:00 CDTNotes: (Same as: Pneumovax 23) Refrigerate Inactive 01/21/2016 [facility] Acetaminophen 300 MG / Codeine Phosphate 30 MG Oral Tablet [Tylenol with Codeine #3] 1 tab, PO, Q6H, PRN Pain Score 1-3, X 5 day, # 20 tab, 0 Refill(s) Active 01/20/2016 [facility] Acetaminophen 300 MG / Codeine Phosphate 30 MG Oral Tablet [Tylenol with Codeine #3] 1 tab, Route: PO, Drug Form: TAB, Dosing Weight 136.42, kg, Q6H, PRN Pain Score 1-3, Start date: 01/20/16 16:11:00 CDT, Duration: 30 day, Stop date: 02/19/16 16:10:00 CSTNotes: Do not exceed 4gm/day of acetaminophen. (Same as: Tylenol with Codeine # 3) No Longer Active 01/20/2016 [facility] doxycycline hyclate 100 MG Oral Capsule 100 mg=1 cap, PO, Q12H, X 10 day, # 20 cap, 0 Refill(s) Active 01/20/2016 [facility] famotidine (ANES) Route: IV, Drug form: INJ, ONCE, Stop date: 01/19/16 9:44:00 CDT Inactive 01/19/2016 [facility] succinylcholine (ANES) Route: IV, Drug form: INJ, ONCE, Stop date: 01/19/16 9:44:00 CDT Inactive 01/19/2016 [facility] fentaNYL (ANES) Route: IV, Drug form: INJ, ONCE, Stop date: 01/19/16 9:44:00 CDT Inactive 01/19/2016 [facility] ondansetron (ANES) Route: IV, Drug form: INJ, ONCE, Stop date: 01/19/16 9:44:00 CDT Inactive 01/19/2016 [facility] propofol (ANES) Route: IV, Drug form: INJ, ONCE, Stop date: 01/19/16 9:44:00 CDT Inactive 01/19/2016 [facility] lidocaine (ANES) Route: IV, Drug form: INJ, ONCE, Stop date: 01/19/16 9:44:00 CDT Inactive 01/19/2016 [facility] midazolam (ANES) Route: IV, Drug form: SOLN, ONCE, Stop date: 01/19/16 9:44:00 CDT Inactive 01/19/2016 [facility] LR 1000 mL INJ (ANES) Route: IV, Total Volume: 1,000, Start date: 01/19/16 9:05:00 CDT, Stop date: 01/19/16 10:05:00 CDT Inactive 01/19/2016 [facility] influenza virus vaccine, inactivated 0.5 mL, Route: IM, Drug Form: SUSP, Daily, Start date: 01/19/16 9:00:00 CDT, Duration: 1 doses or times, Stop date: 01/19/16 9:00:00 CDTNotes: (Same as: Fluzone Quadrivalent, Fluarix Quadrivalent) For 3 years of age and older (0.5 mL IM) Shake well before use Inactive 01/19/2016 [facility] pneumococcal capsular polysaccharide type 1 vaccine / pneumococcal capsular polysaccharide type 10A vaccine / pneumococcal capsular polysaccharide type 11A vaccine / pneumococcal capsular polysaccharide type 12F vaccine / pneumococcal capsular polysacchar 0.5 mL, Route: IM, Drug Form: INJ, Daily, Start date: 01/19/16 9:00:00 CDT, Duration: 1 doses or times, Stop date: 01/19/16 9:00:00 CDTNotes: (Same as: Pneumovax 23) Refrigerate No Longer Active 01/19/2016 [facility] Albuterol 0.833 MG/ML / Ipratropium Marine 0.167 MG/ML Inhalant Solution 3 mL, Route: NEB, Dosing Weight 136.42, kg, ONCE, STAT, Start date: 01/19/16 6:47:00 CDT, Stop date: 01/19/16 6:47:00 CDT Inactive 01/19/2016 [facility] Calcium Chloride 0.0014 MEQ/ML / Potassium Chloride 0.004 MEQ/ML / Sodium Chloride 0.103 MEQ/ML / Sodium Lactate 0.028 MEQ/ML Injectable Solution 1,000 mL, Rate: 25 ml/hr, Infuse over: 40 hr, Route: IV, Dosing Weight 136.42 kg, Total Volume: 1,000, Start date: 01/19/16 6:47:00 CDT, Duration: 30 day, Stop date: 02/18/16 6:46:00 STRATEGY EXECUTION CONSULTANT Inactive 01/19/2016 [facility] Sodium Chloride 0.154 MEQ/ML Injectable Solution 500 mL, Rate: 25 ml/hr, Infuse over: 20 hr, Route: IV, Dosing Weight 136.42 kg, Total Volume: 500, Start date: 01/19/16 6:47:00 CDT, Duration: 30 day, Stop date: 02/18/16 6:46:00 STRATEGY EXECUTION CONSULTANT Inactive 01/19/2016 [facility] Lisinopril 20 mg, 1 tab, Route: PO, Drug form: TAB, Daily, kg, Start date: 01/18/16 17:32:00 CDT, Duration: 30 day, Stop date: 02/17/16 9:00:00 CSTNotes: (Same as: Prinivil, Zestril) No Longer Active 01/18/2016 [facility] K-Dur 20 40 mEq, 2 tab, Route: PO, Drug form: ERTAB, ONCE, Dosing Weight 136.42, kg, Start date: 01/18/16 16:58:00 CDT, Stop date: 01/18/16 16:58:00 CDTNotes: (Same as: K-Dur 20) "Do Not Crush" With food and full glass of water Inactive 01/18/2016 [facility] sodium chloride 0.9% 1000 ml INJ 1,000 mL 1,000 mL, Rate: 100 ml/hr, Infuse over: 10 hr, Route: IV, Dosing Weight 136.42 kg, Total Volume: 1,000, Start date: 01/18/16 16:12:00 CDT, Duration: 30 day, Stop date: 02/17/16 16:11:00 STRATEGY EXECUTION CONSULTANT No Longer Active 01/18/2016 [facility] heparin sodium, porcine 2500 UNT/ML Injectable Solution 5,000 unit, 1 mL, Route: SUB-Q, Drug form: INJ, Q8H, kg, Start date: 01/18/16 16:00:00 CDT, Duration: 30 day, Stop date: 02/17/16 14:00:00 CSTNotes: porcine heparin No Longer Active 01/18/2016 [facility] Clindamycin 600 mg, 50 mL, Route: IVPB, Drug form: INJ, ABXQ8H, kg, Start date: 01/18/16 14:00:00 CDT, Duration: 30 day, Stop date: 02/17/16 6:00:00 STRATEGY EXECUTION CONSULTANT No Longer Active 01/18/2016 [facility] Dextrose 50% Syringe 12.5 gm, 25 mL, Route: IVP, Drug Form: INJ, kg, PRN, PRN Blood Glucose Results, Start date: 01/18/16 13:38:00 CDT, Duration: 30 day, Stop date: 02/17/16 12:37:00 STRATEGY EXECUTION CONSULTANT No Longer Active 01/18/2016 [facility] Glucagon 1 mg, Route: IM, Drug form: PDR/INJ, PRN, kg, PRN Blood Glucose Results, Start date: 01/18/16 13:38:00 CDT, Duration: 30 day, Stop date: 02/17/16 12:37:00 STRATEGY EXECUTION CONSULTANT No Longer Active 01/18/2016 [facility] Insulin, Aspart, Human 8 unit, 0.08 mL, [...] days from Date No Longer Active 01/18/2016 [facility] Sodium Chloride 0.9% IV 1000 mL 1,000 mL, Rate: 100 ml/hr, Infuse over: 10 hr, Route: IV, Total Volume: 1,000, Start date: 01/18/16 13:38:00 CDT, Duration: 2 day, Stop date: 01/20/16 13:37:00 CDT Inactive 01/18/2016 [facility] Morphine 2 mg, 1 mL, Route: IVP, Drug form: INJ, Q4H, kg, PRN Pain Score 7-10, Start date: 01/18/16 13:30:00 CDT, Duration: 30 day, Stop date: 02/17/16 13:29:00 CSTNotes: (Same as:MORPhine Sulfate) No Longer Active 01/18/2016 [facility] Naproxen 500 mg, 2 tab, Route: PO, Drug form: TAB, Q8H, kg, PRN Pain Score 4-6, Start date: 01/18/16 13:30:00 CDT, Duration: 30 day, Stop date: 02/17/16 13:29:00 CSTNotes: (Same as: Naprosyn) Take with food. No Longer Active 01/18/2016 [facility] Metformin 1,000 mg, PO, BID, 0 Refill(s) Active 01/18/2016 [facility] Lisinopril 20 mg, PO, Daily, 0 Refill(s) Active 01/18/2016 [facility] NuvaRing 1 ea, VAG, q4wk, 0 Refill(s) Active 01/18/2016 [facility] Lisinopril 1 tablet Orally Active 20 MG Orally Once a day Hasan [id number] Allergies, Adverse Reactions, Alerts Substance Category Reaction Severity Reaction type Status Date Reported Comments Source penicillin Adverse Reaction Info Not Available Adverse Reaction Active 02/09/2016 [id number] penicillins Assertion Drug allergy Active [facility] Immunizations Immunization Date Given Site Status Last Updated Comments Source pneumococcal 23-valent vaccine 01/21/2016 Left deltoid completed [facility] influenza virus vaccine, inactivated 01/21/2016 Right deltoid completed [facility] Results Order Name Results Value Reference Range Date Interpretation Comments Source ELECTROLYTES AGAP 12.3 10.0 - 20.0 01/21/2016 [facility] ELECTROLYTES Glucose Lvl 98 70 - 99 01/21/2016 [facility] ELECTROLYTES BUN 7 7 - 22 01/21/2016 [facility] ELECTROLYTES Chloride Lvl 104 95 - 109 01/21/2016 [facility] ELECTROLYTES CO2 26 24 - 32 01/21/2016 [facility] ELECTROLYTES Sodium Lvl 138 135 - 145 01/21/2016 [facility] ELECTROLYTES Potassium Lvl 4.3 3.5 - 5.1 01/21/2016 [facility] ELECTROLYTES Creatinine Lvl 0.67 0.50 - 1.40 01/21/2016 [facility] ELECTROLYTES eGFR 135 01/21/2016 Result Comment: The eGFR is calculated [...] should be multiplied by the estimated BMI. [facility] ELECTROLYTES Calcium Lvl 8.4 8.5 - 10.5 01/21/2016 [facility] HEMATOLOGY RDW 14.4 11.5 - 14.5 01/21/2016 [facility] HEMATOLOGY MPV 7.3 7.4 - 10.4 01/21/2016 [facility] Platelet 400 133 - 450 01/21/2016 [facility] RBC 4.24 4.20 - 5.40 01/21/2016 [facility] HEMATOLOGY WBC 9.6 3.7 - 10.4 01/21/2016 [facility] MCV 72.4 80.0 - 98.0 01/21/2016 [facility] MCHC 31.4 32.0 - 36.0 01/21/2016 [facility] Hct 30.7 36.0 - 48.0 01/21/2016 [facility] Hgb 9.6 12.0 - 16.0 01/21/2016 [facility] MCH 22.8 27.0 - 31.0 01/21/2016 [facility] HEMATOLOGY Eosinophils # 0.5 0.0 - 0.5 01/21/2016 [facility] Monocytes # 1.0 0.0 - 0.8 01/21/2016 [facility] Microcyte 1+ *ABN* (01/21/16 4:41 AM) None Seen 01/21/2016 [facility] Lymphocytes # 2.8 1.0 - 5.5 01/21/2016 [facility] Basophils # 0.1 0.0 - 0.2 01/21/2016 [facility] Segs 53.9 45.0 - 75.0 01/21/2016 [facility] Monocytes 10.5 2.0 - 12.0 01/21/2016 [facility] HEMATOLOGY Segs-Bands # 5.2 1.5 - 8.1 01/21/2016 [facility] HEMATOLOGY Basophils 0.9 0.0 - 1.0 01/21/2016 [facility] HEMATOLOGY Lymphocytes 29.1 20.0 - 40.0 01/21/2016 [facility] HEMATOLOGY Eosinophils 5.6 0.0 - 4.0 01/21/2016 [facility] ELECTROLYTES AGAP 11.0 10.0 - 20.0 01/20/2016 [facility] ELECTROLYTES eGFR 116 01/20/2016 Result Comment: The eGFR is calculated [...] should be multiplied by the estimated BMI. [facility] ELECTROLYTES Potassium Lvl 4.0 3.5 - 5.1 01/20/2016 [facility] ELECTROLYTES Sodium Lvl 137 135 - 145 01/20/2016 [facility] ELECTROLYTES CO2 26 24 - 32 01/20/2016 [facility] ELECTROLYTES Calcium Lvl 8.7 8.5 - 10.5 01/20/2016 [facility] ELECTROLYTES Chloride Lvl 104 95 - 109 01/20/2016 [facility] ELECTROLYTES Creatinine Lvl 0.78 0.50 - 1.40 01/20/2016 [facility] ELECTROLYTES BUN 8 7 - 22 01/20/2016 [facility] ELECTROLYTES Glucose Lvl 93 70 - 99 01/20/2016 [facility] HEMATOLOGY RBC 4.24 4.20 - 5.40 01/20/2016 [facility] HEMATOLOGY RDW 14.3 11.5 - 14.5 01/20/2016 [facility] HEMATOLOGY Platelet 422 133 - 450 01/20/2016 [facility] MPV 7.7 7.4 - 10.4 01/20/2016 [facility] HEMATOLOGY Hgb 10.1 12.0 - 16.0 01/20/2016 [facility] HEMATOLOGY Hct 30.9 36.0 - 48.0 01/20/2016 [facility] HEMATOLOGY MCV 72.9 80.0 - 98.0 01/20/2016 [facility] HEMATOLOGY MCH 23.7 27.0 - 31.0 01/20/2016 [facility] HEMATOLOGY MCHC 32.5 32.0 - 36.0 01/20/2016 [facility] HEMATOLOGY WBC 9.7 3.7 - 10.4 01/20/2016 [facility] HEMATOLOGY Lymphocytes 28.5 20.0 - 40.0 01/20/2016 [facility] HEMATOLOGY Monocytes 9.5 2.0 - 12.0 01/20/2016 [facility] HEMATOLOGY Eosinophils 5.8 0.0 - 4.0 01/20/2016 [facility] HEMATOLOGY Monocytes # 0.9 0.0 - 0.8 01/20/2016 [facility] HEMATOLOGY Eosinophils # 0.6 0.0 - 0.5 01/20/2016 [facility] HEMATOLOGY Basophils # 0.1 0.0 - 0.2 01/20/2016 [facility] HEMATOLOGY Basophils 0.7 0.0 - 1.0 01/20/2016 [facility] HEMATOLOGY Segs-Bands # 5.4 1.5 - 8.1 01/20/2016 [facility] HEMATOLOGY Lymphocytes # 2.8 1.0 - 5.5 01/20/2016 [facility] HEMATOLOGY Microcyte 1+ *ABN* (01/20/16 7:07 AM) None Seen 01/20/2016 [facility] HEMATOLOGY Segs 55.5 45.0 - 75.0 01/20/2016 [facility] URINE CHEM U Preg Negative (01/19/16 6:57 AM) Negative 01/19/2016 [facility] URINE AND STOOL UA Mucus Many /LPF None Seen /LPF 01/18/2016 [facility] URINE AND STOOL UA RBC 1 0 - 2 01/18/2016 [facility] URINE AND STOOL UA Bacteria Occasional /HPF None Seen /HPF 01/18/2016 [facility] URINE AND STOOL UA Color Sahra 01/18/2016 [facility] URINE AND STOOL UA Sq Epi Occasional /LPF Few /LPF 01/18/2016 [facility] URINE AND STOOL UA Leuk Est Negative (01/18/16 6:04 PM) Negative 01/18/2016 [facility] URINE AND STOOL UA WBC 2 0 - 5 01/18/2016 [facility] URINE AND STOOL UA Spec Grav 1.025 <=1.030 01/18/2016 [facility] URINE AND STOOL UA Turbidity Clear (01/18/16 6:04 PM) Clear 01/18/2016 [facility] URINE AND STOOL UA Ketones 20 mg/dL Negative mg/dL 01/18/2016 [facility] URINE AND STOOL UA Glucose Negative mg/dL Negative mg/dL 01/18/2016 [facility] URINE AND STOOL UA Protein 30 mg/dL Negative mg/dL 01/18/2016 [facility] URINE AND STOOL UA pH 5.0 5.0 - 8.0 01/18/2016 [facility] URINE AND STOOL UA Bili Negative *NA* (01/18/16 6:04 PM) Negative 01/18/2016 [facility] URINE AND STOOL UA Nitrite Negative (01/18/16 6:04 PM) Negative 01/18/2016 [facility] URINE AND STOOL UA Urobilinogen 2.0 0.1 - 1.0 01/18/2016 [facility] URINE AND STOOL UA Blood Negative (01/18/16 6:04 PM) Negative 01/18/2016 [facility] HEMATOLOGY PTT 32.3 22.9 - 35.8 01/18/2016 [facility] HEMATOLOGY PT 15.2 12.0 - 14.7 01/18/2016 [facility] HEMATOLOGY INR 1.18 0.85 - 1.17 01/18/2016 [facility] CHEM PANEL Magnesium Lvl 1.8 1.8 - 2.4 01/18/2016 [facility] CHEM PANEL eGFR 128 01/18/2016 Result Comment: The eGFR is calculated [...] BMI. [facility] CHEM PANEL Alk Phos 93 39 - 136 01/18/2016 [facility] CHEM PANEL Bili Total 0.4 0.2 - 1.3 01/18/2016 [facility] CHEM PANEL Albumin Lvl 3.0 3.5 - 5.0 01/18/2016 [facility] CHEM PANEL ALT 19 0 - 65 01/18/2016 [facility] CHEM PANEL AST 18 0 - 37 01/18/2016 [facility] CHEM PANEL Calcium Lvl 9.0 8.5 - 10.5 01/18/2016 [facility] CHEM PANEL Total Protein 8.2 6.4 - 8.4 01/18/2016 [facility] CHEM PANEL Sodium Lvl 135 135 - 145 01/18/2016 [facility] CHEM PANEL Potassium Lvl 3.4 3.5 - 5.1 01/18/2016 [facility] CHEM PANEL Chloride Lvl 102 95 - 109 01/18/2016 [facility] CHEM PANEL CO2 22 24 - 32 01/18/2016 [facility] CHEM PANEL BUN 6 7 - 22 01/18/2016 [facility] CHEM PANEL Creatinine Lvl 0.72 0.50 - 1.40 01/18/2016 [facility] CHEM PANEL Glucose Lvl 127 70 - 99 01/18/2016 [facility] CHEM PANEL A/G Ratio 0.6 0.7 - 1.6 01/18/2016 [facility] CHEM PANEL B/C Ratio 8 6 - 25 01/18/2016 [facility] CHEM PANEL Globulin 5.2 2.7 - 4.2 01/18/2016 [facility] CHEM PANEL AGAP 14.4 10.0 - 20.0 01/18/2016 [facility] CHEM PANEL Phosphorus 3.1 2.5 - 4.5 01/18/2016 [facility] HEMATOLOGY MCV 72.7 80.0 - 98.0 01/18/2016 [facility] HEMATOLOGY Hct 30.9 36.0 - 48.0 01/18/2016 [facility] HEMATOLOGY Hgb 9.6 12.0 - 16.0 01/18/2016 [facility] HEMATOLOGY RBC 4.26 4.20 - 5.40 01/18/2016 [facility] HEMATOLOGY MCH 22.6 27.0 - 31.0 01/18/2016 [facility] HEMATOLOGY WBC 19.1 3.7 - 10.4 01/18/2016 [facility] HEMATOLOGY MCHC 31.1 32.0 - 36.0 01/18/2016 [facility] HEMATOLOGY RDW 14.1 11.5 - 14.5 01/18/2016 [facility] HEMATOLOGY Platelet 375 133 - 450 01/18/2016 [facility] HEMATOLOGY MPV 7.9 7.4 - 10.4 01/18/2016 [facility] HEMATOLOGY Lymphocytes # 2.7 1.0 - 5.5 01/18/2016 [facility] HEMATOLOGY Eosinophils # 0.2 0.0 - 0.5 01/18/2016 [facility] HEMATOLOGY Basophils # 0.1 0.0 - 0.2 01/18/2016 [facility] HEMATOLOGY Microcyte 1+ *ABN* (01/18/16 2:49 PM) None Seen 01/18/2016 [facility] Monocytes # 2.1 0.0 - 0.8 01/18/2016 [facility] Eosinophils 1.2 0.0 - 4.0 01/18/2016 [facility] Basophils 0.5 0.0 - 1.0 01/18/2016 [facility] Segs-Bands # 13.9 1.5 - 8.1 01/18/2016 [facility] Lymphocytes 14.3 20.0 - 40.0 01/18/2016 [facility] Segs 72.9 45.0 - 75.0 01/18/2016 [facility] Monocytes 11.1 2.0 - 12.0 01/18/2016 [facility] Sed Rate 4 0 - 20 01/18/2016 [facility] IMMUNOLOGY C-REACTIVE PROTEIN 165.0 <=2.9 mg/L 01/18/2016 [facility] SPECIAL CHEMISTRY Hgb A1C 7.6 <=5.6 % 01/18/2016 [facility] Pathology Reports No Data Provided for This Section Diagnostic Reports No Data Provided for This Section Consultation Notes No Data Provided for This Section Discharge Summaries No Data Provided for This Section History and Physicals No Data Provided for This Section Vital Signs Vital Sign Value Date Comments Source Weight 300 02/09/2016 [id number] Height 67 02/09/2016 [id number] Temperature Oral (F) 98.0 F 02/09/2016 [id number] Heart Rate 92 02/09/2016 [id number] Diastolic (mm Hg) 76 02/09/2016 [id number] Systolic (mm Hg) 144 02/09/2016 [id number] Systolic (mm Hg) 130 01/21/2016 [facility] Diastolic (mm Hg) 76 01/21/2016 [facility] Heart Rate 73 01/21/2016 [facility] Respitory Rate 16 01/21/2016 [facility] Temperature Oral (F) 98.6 F 01/21/2016 [facility] Respitory Rate 16 01/21/2016 [facility] Systolic (mm Hg) 144 01/21/2016 [facility] Diastolic (mm Hg) 72 01/21/2016 [facility] Heart Rate 78 01/21/2016 [facility] Temperature Oral (F) 98.2 F 01/21/2016 [facility] Temperature Oral (F) 98.0 F 01/21/2016 [facility] Heart Rate 73 01/21/2016 [facility] Respitory Rate 16 01/21/2016 [facility] Systolic (mm Hg) 134 01/21/2016 [facility] Diastolic (mm Hg) 73 01/21/2016 [facility] Height 170.18 cm 01/18/2016 [facility] Weight 136.42 01/18/2016 [facility] Encounters Location Location Details Encounter Type Encounter Number Reason For Visit Attending Provider ADM Date DC Date Status Source [facility] Inpatient [id number] Grace Reyesre 01/18/2016 01/21/2016 [facility] Outpatient [id number] BAUTISTA EDWARDS 01/19/2016 Active [facility] Outpatient [id number] BAUTISTA EDWARDS 01/31/2016 Active [facility] F[facility]U FROM [facility] 01/21/16 [id number] 02/09/2016 02/09/2016 [id number] Outpatient [id number] BAUTISTA EDWARDS 02/14/2016 Active [facility] Procedures Procedure Code Date Perfomer Comments Source Incision and drainage of abscess (eg, carbuncle, suppurative hidradenitis, cutaneous or subcutaneous abscess, cyst, furuncle, or paronychia); complicated or multiple [id number] 01/19/2016 [facility] [id number] 04/02/2003 [facility] Assessment and Plan Assessment and Plan Date Source Extracted from:Title: Clinical Document Author: Bautista Edwards MD Date: 01/21/16 SURGERY PROGRESS NOTE Bautista Edwards MD, FACS SUBJECTIVE feels better, pain improved, wants to go home OBJECTIVE VSS afebrile, wound clean with serosanguinous drainage, no purulence ASSESSMENT s/p I&D gluteal abscess PLAN -ok to discharge home once outpatient wound care arranged, po abx, patient may follow up with me in 1 week Vitals Tmp(F) Tmp(C) Ttype BP MAP Pulse RR SpO2 FIO2 ETCO2 01/20 07:43 98.0 36.67 oral 134/73 --- 73 16 --- --- --- 01/20 03:57 98.4 36.89 oral 126/79 94 67 16 --- --- --- 01/19 22:58 98.3 36.83 oral 140/61 87 67 16 --- --- --- 01/19 19:12 98.1 36.72 oral 105/54 71 68 16 --- --- --- 01/19 15:45 98.2 36.78 oral 111/66 --- 62 14 --- --- --- 24 Hr Tmax: 98.4F (36.89c) at 01/20 03:57 Vital Signs are the last 5 in the past 48 hours. 24 Hr Tmin: 98.0F (36.67c) at 01/20 07:43 Weights are the last 5 in 60 days, plus initial. Date Wt(kg) Wt(lb) Ht(cm) Ht(in) Method BMI BSA 01/17 (initial) 136.42 300.12 Measured 01/17 170.18 67.00 Stated 24 Hr Point of Care Glucoses 01/20 0753 Glucose POC 91 01/19 2102 Glucose POC 136 H 01/19 1712 Glucose POC 124 H 01/19 1159 Glucose POC 122 H Most Recent Scores: 01/21/16 Pain Intensity NRS (0-10) 0 01/20/16 Liya Coma Score 15 01/20/16 [place] Fall Score 4 01/20/16 Salvador Score 23 Lines, Tubes, and Drains: 01/19/2016 21:40 Peripheral Lines: Hand Left 20 gauge Over the needle catheter Surgical Procedures: 01/19/16 09:25 I&D GLUTEL ABSCESS [id number] Primary Surgeon: Bautista Edwards MD (Service: GEN) I/O Intake Output Balance 01/21/2016 7a-3p 0.00 0.00 0.00 3p-11p 0.00 0.00 0.00 11p-7a 0.00 0.00 0.00 Totals 0.00 0.00 0.00 As of 10:37 01/20/2016 7a-3p 546.00 0.00 546.00 3p-11p 755.00 0.00 755.00 11p-7a 50.00 0.00 50.00 Totals 1351.00 0.00 1351.00 01/19/2016 7a-3p 392.00 25.00 367.00 3p-11p 250.00 0.00 250.00 11p-7a 600.00 0.00 600.00 Totals 1242.00 25.00 1217.00 24hr Labs 01/20 0753 Glucose POC 91 01/20 0441 Glucose Lvl 98 BUN 7 Creatinine Lvl 0.67 Sodium Lvl 138 Potassium Lvl 4.3 Chloride Lvl 104 CO2 26 AGAP 12.3 Calcium Lvl 8.4 L eGFR 135 WBC 9.6 RBC 4.24 Hgb 9.6 L Hct 30.7 L MCV 72.4 L MCH 22.8 L MCHC 31.4 L RDW 14.4 Platelet 400 MPV 7.3 L Segs 53.9 Monocytes 10.5 Lymphocytes 29.1 Eosinophils 5.6 H Basophils 0.9 Segs-Bands # 5.2 Lymphocytes # 2.8 Monocytes # 1.0 H Eosinophils # 0.5 Basophils # 0.1 Microcyte 1+ 01/19 2102 Glucose POC 136 H 01/19 1712 Glucose POC 124 H 01/19 1159 Glucose POC 122 H Scheduled Meds (4): 01/18/16 14:00 clindamycin [...] One Time Meds: None Continuous Infusions: None 01/21/2016 [facility] Plan of Care No Data Provided for This Section Social History Social History Date Source Social History ElementQualifiersDate Reported Smoke Exposure: . Second Hand Smoke Exposure: No Feb 09, 2016 Do you take Aspirin, or a blood thinner . No I do not take aspirin / or a blood thinner Feb 09, 2016 Tobacco Use: . Are you a: never smoker Feb 09, 2016 Do you drink alcohol? . Status: No Feb 09, 2016 02/09/2016 [id number] Social History TypeResponse Substance Abuse Use: None. Sexual Sexually active: [...] Days No; Reg Smoking Cessation Counseling No 01/18/2016 [facility] Family History No Data Provided for This Section Advance Directives No Data Provided for This Section Functional Status No Data Provided for This Section
[2018-10-18] MEDS ORDERED: SODIUM CHLORIDE 0.9% 1000ML 1,000 ML ONE (17:52)
[2018-10-18] MEDS ORDERED: ONDANSETRON HCL INJ 2MG/ML 2ML 2 MG/ML VIAL ONE (17:52)
[2018-10-18] MEDS ORDERED: ONDANSETRON HCL INJ 2MG/ML 2ML 2 MG/ML VIAL IV ONE (18:00)
[2018-10-18] MEDS ORDERED: SODIUM CHLORIDE 0.9% 1000 ML BAG IV ONE (18:00)
--- NOTE | 2018-10-18 18:43 | Diagnostic Imaging Report ---
EXAM: CT Abdomen and Pelvis WITHOUT contrast INDICATION: Left flank pain. Vomiting. COMPARISON: None. TECHNIQUE: Abdomen and pelvis were scanned utilizing a multidetector helical scanner from the lung base to the pubic symphysis without administration of IV contrast. Absence of intravenous contrast decreases sensitivity for detection of focal lesions and vascular pathology. Coronal and sagittal reformations were obtained. Routine protocol was performed. IV CONTRAST: None ORAL CONTRAST: Water COMPLICATIONS: None RADIATION DOSE: Total DLP: 799 mGy*cm Estimated effective dose: (DLP x 0.015 x size factor) mSv CTDIvol has been reviewed. It is below the limits set by the Radiation Protocol Committee (RPC). Dose modulation, iterative reconstruction, and/or weight based adjustment of the mA/kV was utilized to reduce the radiation dose to as low as reasonably achievable. FINDINGS: LINES and TUBES: None. LOWER THORAX: Unremarkable HEPATOBILIARY: No focal hepatic lesions. No biliary ductal dilation. GALLBLADDER: No radio-opaque stones or sludge. No wall thickening. SPLEEN: No splenomegaly. PANCREAS: No focal masses or ductal dilatation. ADRENALS: No adrenal nodules KIDNEYS/URETERS: No hydronephrosis. No cystic or solid mass lesions. No stones. GI TRACT: No abnormal distention, wall thickening, or evidence of bowel obstruction. The appendix is not clearly seen however, no inflammatory changes are seen in the right lower quadrant of the abdomen. PELVIC ORGANS/BLADDER: Unremarkable. LYMPH NODES: No lymphadenopathy. VESSELS: Unremarkable. PERITONEUM / RETROPERITONEUM: No free air or fluid. BONES: Unremarkable. SOFT TISSUES: Unremarkable. IMPRESSION: 1. No urinary tract calcifications are seen. There is no hydronephrosis, hydroureter or perinephric fat stranding. Signed by: Dr. Andrea Alvarez M.D. on 10/18/2018 6:40 PM
[2018-10-18 19:06] VITALS: BP 158/85
== END 2018-10-18 19:13 | disposition home or self-care (01) ==
LOC: FSED 17:37
DX: R11.2 Nausea with vomiting, unspecified (principal); R19.7 Diarrhea, unspecified; R10.9 Unspecified abdominal pain; I10 Essential (primary) hypertension; E11.9 Type 2 diabetes mellitus without complications; E78.5 Hyperlipidemia, unspecified; F31.9 Bipolar disorder, unspecified
CPT/HCPCS: 74176; 80048; 80076; 81003; 81025; 82553; 84484; 85025; 93005; 96374; 99283; J2405; J7030

== ENCOUNTER → 2018-10-23 | Day surgery (SDC) | payer BC ==
[~2018-10-23] MED LIST changes: +FENTANYL CITRATE/PF 100MCG/2 ML INJ ONE; +MIDAZOLAM HCL 2 MG/2 ML VIAL ONE; +PROPOFOL IV EMULSION 10 MG/ML 20 ML VIAL ONE
--- OUTSIDE RECORDS SUMMARY | 2018-10-23 11:56 | XMS REPORT | Continuity of Care Document ---
Author Author [employer] Address Unknown Phone Unavailable Care Team Providers Care Planning Rn Name Role Phone Socialare Unavailable Unavailable Problems Problem Status Onset Date Classification Date Reported Comments Source BILATERAL PILONIDAL ABSCESS, FEBRILE. LE Active 01/18/2016 [facility] Diabetes Resolved 04/02/2014 Problem 01/24/2016 [facility] Anxiety Resolved Problem 01/24/2016 [facility] Female hirsutism Resolved Problem 01/24/2016 [facility] Family history of MRSA infection Resolved Problem 01/24/2016 [facility] History of PCOS Resolved Problem 01/24/2016 [facility] Chronic hypertension Resolved Problem 01/24/2016 [facility] Bipolar affective Resolved Problem 01/24/2016 [facility] Depression Resolved Problem 01/24/2016 [facility] Morbid obesity Resolved Problem 01/24/2016 [facility] Acne inversa Resolved Problem 01/24/2016 [facility] Morbid obesity Active Problem 02/29/2016 [id number] Abscess of buttock Active Diagnosis 02/29/2016 [id number] Hyperglycemia due to type 2 diabetes mellitus Active Problem 02/29/2016 [id number] Cellulitis Active Diagnosis 02/29/2016 [id number] PILONIDAL CYST WITH ABSCESS Active [facility] Medications Medication Details Route Status Patient Instructions Ordering Provider Order Date Source Mupirocin 1 application to affected area Externally Active 2 % Externally Three times a day Hasan 02/09/2016 [id number] Pneumovax 23 0.5 mL, Route: IM, Drug Form: INJ, Daily, Start date: 01/21/16 10:00:00 CDT, Stop date: 01/21/16 15:00:00 CDTNotes: (Same as: Pneumovax 23) Refrigerate Inactive 01/21/2016 [facility] Acetaminophen 300 MG / Codeine Phosphate 30 MG Oral Tablet [Tylenol with Codeine #3] 1 tab, PO, Q6H, PRN Pain Score 1-3, X 5 day, # 20 tab, 0 Refill(s) Active 01/20/2016 [facility] Acetaminophen 300 MG / Codeine Phosphate 30 MG Oral Tablet [Tylenol with Codeine #3] 1 tab, Route: PO, Drug Form: TAB, Dosing Weight 136.42, kg, Q6H, PRN Pain Score 1-3, Start date: 01/20/16 16:11:00 CDT, Duration: 30 day, Stop date: 02/19/16 16:10:00 CSTNotes: Do not exceed 4gm/day of acetaminophen. (Same as: Tylenol with Codeine # 3) No Longer Active 01/20/2016 [facility] doxycycline hyclate 100 MG Oral Capsule 100 mg=1 cap, PO, Q12H, X 10 day, # 20 cap, 0 Refill(s) Active 01/20/2016 [facility] famotidine (ANES) Route: IV, Drug form: INJ, ONCE, Stop date: 01/19/16 9:44:00 CDT Inactive 01/19/2016 [facility] succinylcholine (ANES) Route: IV, Drug form: INJ, ONCE, Stop date: 01/19/16 9:44:00 CDT Inactive 01/19/2016 [facility] fentaNYL (ANES) Route: IV, Drug form: INJ, ONCE, Stop date: 01/19/16 9:44:00 CDT Inactive 01/19/2016 [facility] ondansetron (ANES) Route: IV, Drug form: INJ, ONCE, Stop date: 01/19/16 9:44:00 CDT Inactive 01/19/2016 [facility] propofol (ANES) Route: IV, Drug form: INJ, ONCE, Stop date: 01/19/16 9:44:00 CDT Inactive 01/19/2016 [facility] lidocaine (ANES) Route: IV, Drug form: INJ, ONCE, Stop date: 01/19/16 9:44:00 CDT Inactive 01/19/2016 [facility] midazolam (ANES) Route: IV, Drug form: SOLN, ONCE, Stop date: 01/19/16 9:44:00 CDT Inactive 01/19/2016 [facility] LR 1000 mL INJ (ANES) Route: IV, Total Volume: 1,000, Start date: 01/19/16 9:05:00 CDT, Stop date: 01/19/16 10:05:00 CDT Inactive 01/19/2016 [facility] influenza virus vaccine, inactivated 0.5 mL, Route: IM, Drug Form: SUSP, Daily, Start date: 01/19/16 9:00:00 CDT, Duration: 1 doses or times, Stop date: 01/19/16 9:00:00 CDTNotes: (Same as: Fluzone Quadrivalent, Fluarix Quadrivalent) For 3 years of age and older (0.5 mL IM) Shake well before use Inactive 01/19/2016 [facility] pneumococcal capsular polysaccharide type 1 vaccine [...] Pneumovax 23) Refrigerate No Longer Active 01/19/2016 [facility] Albuterol 0.833 MG/ML / Ipratropium Hobson 0.167 MG/ML Inhalant Solution 3 mL, Route: NEB, Dosing Weight 136.42, kg, ONCE, STAT, Start date: 01/19/16 6:47:00 CDT, Stop date: 01/19/16 6:47:00 CDT Inactive 01/19/2016 [facility] Calcium Chloride 0.0014 MEQ/ML / Potassium Chloride 0.004 MEQ/ML / Sodium Chloride 0.103 MEQ/ML / Sodium Lactate 0.028 MEQ/ML Injectable Solution 1,000 mL, Rate: 25 ml/hr, Infuse over: 40 hr, Route: IV, Dosing Weight 136.42 kg, Total Volume: 1,000, Start date: 01/19/16 6:47:00 CDT, Duration: 30 day, Stop date: 02/18/16 6:46:00 [employer] Inactive 01/19/2016 [facility] Sodium Chloride 0.154 MEQ/ML Injectable Solution 500 mL, Rate: 25 ml/hr, Infuse over: 20 hr, Route: IV, Dosing Weight 136.42 kg, Total Volume: 500, Start date: 01/19/16 6:47:00 CDT, Duration: 30 day, Stop date: 02/18/16 6:46:00 [employer] Inactive 01/19/2016 [facility] Lisinopril 20 mg, 1 tab, Route: PO, Drug form: TAB, Daily, kg, Start date: 01/18/16 17:32:00 CDT, Duration: 30 day, Stop date: 02/17/16 9:00:00 CSTNotes: (Same as: Prinivil, Zestril) No Longer Active 01/18/2016 [facility] K-Dur 20 40 mEq, 2 tab, Route: PO, Drug form: ERTAB, ONCE, Dosing Weight 136.42, kg, Start date: 01/18/16 16:58:00 CDT, Stop date: 01/18/16 16:58:00 CDTNotes: (Same as: K-Dur 20) "Do Not Crush" With food and full glass of water Inactive 01/18/2016 [facility] sodium chloride 0.9% 1000 ml INJ 1,000 mL 1,000 mL, Rate: 100 ml/hr, Infuse over: 10 hr, Route: IV, Dosing Weight 136.42 kg, Total Volume: 1,000, Start date: 01/18/16 16:12:00 CDT, Duration: 30 day, Stop date: 02/17/16 16:11:00 [employer] No Longer Active 01/18/2016 [facility] heparin sodium, porcine 2500 UNT/ML Injectable Solution 5,000 unit, 1 mL, Route: SUB-Q, Drug form: INJ, Q8H, kg, Start date: 01/18/16 16:00:00 CDT, Duration: 30 day, Stop date: 02/17/16 14:00:00 CSTNotes: porcine heparin No Longer Active 01/18/2016 [facility] Clindamycin 600 mg, 50 mL, Route: IVPB, Drug form: INJ, ABXQ8H, kg, Start date: 01/18/16 14:00:00 CDT, Duration: 30 day, Stop date: 02/17/16 6:00:00 [employer] No Longer Active 01/18/2016 [facility] Dextrose 50% Syringe 12.5 gm, 25 mL, Route: IVP, Drug Form: INJ, kg, PRN, PRN Blood Glucose Results, Start date: 01/18/16 13:38:00 CDT, Duration: 30 day, Stop date: 02/17/16 12:37:00 [employer] No Longer Active 01/18/2016 [facility] Glucagon 1 mg, Route: IM, Drug form: PDR/INJ, PRN, kg, PRN Blood Glucose Results, Start date: 01/18/16 13:38:00 CDT, Duration: 30 day, Stop date: 02/17/16 12:37:00 [employer] No Longer Active 01/18/2016 [facility] Insulin, Aspart, Human 8 unit, 0.08 [...] days from Date No Longer Active 01/18/2016 [facility] Sodium Chloride 0.9% IV 1000 mL 1,000 mL, Rate: 100 ml/hr, Infuse over: 10 hr, Route: IV, Total Volume: 1,000, Start date: 01/18/16 13:38:00 CDT, Duration: 2 day, Stop date: 01/20/16 13:37:00 CDT Inactive 01/18/2016 [facility] Morphine 2 mg, 1 mL, Route: IVP, Drug form: INJ, Q4H, kg, PRN Pain Score 7-10, Start date: 01/18/16 13:30:00 CDT, Duration: 30 day, Stop date: 02/17/16 13:29:00 CSTNotes: (Same as:MORPhine Sulfate) No Longer Active 01/18/2016 [facility] Naproxen 500 mg, 2 tab, Route: PO, Drug form: TAB, Q8H, kg, PRN Pain Score 4-6, Start date: 01/18/16 13:30:00 CDT, Duration: 30 day, Stop date: 02/17/16 13:29:00 CSTNotes: (Same as: Naprosyn) Take with food. No Longer Active 01/18/2016 [facility] Metformin 1,000 mg, PO, BID, 0 Refill(s) Active 01/18/2016 [facility] Lisinopril 20 mg, PO, Daily, 0 Refill(s) Active 01/18/2016 [facility] NuvaRing 1 ea, VAG, q4wk, 0 Refill(s) Active 01/18/2016 [facility] Lisinopril 1 tablet Orally Active 20 MG Orally Once a day Hasan [id number] Allergies, Adverse Reactions, Alerts Substance Category Reaction Severity Reaction type Status Date Reported Comments Source penicillin Adverse Reaction Info Not Available Adverse Reaction Active 02/09/2016 [id number] penicillins Assertion Drug allergy Active [facility] Immunizations Immunization Date Given Site Status Last Updated Comments Source pneumococcal 23-valent vaccine 01/21/2016 Left deltoid completed Reagan [facility] influenza virus vaccine, inactivated 01/21/2016 Right deltoid completed Reagan [facility] Results Order Name Results Value Reference Range Date Interpretation Comments Source ELECTROLYTES AGAP 12.3 10.0 - 20.0 01/21/2016 [facility] ELECTROLYTES Glucose Lvl 98 70 - 99 01/21/2016 [facility] ELECTROLYTES BUN 7 7 - 22 01/21/2016 [facility] ELECTROLYTES Chloride Lvl 104 95 - 109 01/21/2016 [facility] ELECTROLYTES CO2 26 24 - 32 01/21/2016 [facility] ELECTROLYTES Sodium Lvl 138 135 - 145 01/21/2016 [facility] ELECTROLYTES Potassium Lvl 4.3 3.5 - 5.1 01/21/2016 [facility] ELECTROLYTES Creatinine Lvl 0.67 0.50 - 1.40 01/21/2016 [facility] ELECTROLYTES eGFR 135 01/21/2016 Result Comment: [...] should be multiplied by the estimated BMI. [facility] ELECTROLYTES Calcium Lvl 8.4 8.5 - 10.5 01/21/2016 [facility] HEMATOLOGY RDW 14.4 11.5 - 14.5 01/21/2016 [facility] HEMATOLOGY MPV 7.3 7.4 - 10.4 01/21/2016 [facility] Platelet 400 133 - 450 01/21/2016 [facility] RBC 4.24 4.20 - 5.40 01/21/2016 [facility] HEMATOLOGY WBC 9.6 3.7 - 10.4 01/21/2016 [facility] MCV 72.4 80.0 - 98.0 01/21/2016 [facility] MCHC 31.4 32.0 - 36.0 01/21/2016 [facility] Hct 30.7 36.0 - 48.0 01/21/2016 [facility] Hgb 9.6 12.0 - 16.0 01/21/2016 [facility] MCH 22.8 27.0 - 31.0 01/21/2016 [facility] HEMATOLOGY Eosinophils # 0.5 0.0 - 0.5 01/21/2016 [facility] Monocytes # 1.0 0.0 - 0.8 01/21/2016 [facility] Microcyte 1+ *ABN* (01/21/16 4:41 AM) None Seen 01/21/2016 [facility] Lymphocytes # 2.8 1.0 - 5.5 01/21/2016 [facility] Basophils # 0.1 0.0 - 0.2 01/21/2016 [facility] Segs 53.9 45.0 - 75.0 01/21/2016 [facility] Monocytes 10.5 2.0 - 12.0 01/21/2016 [facility] HEMATOLOGY Segs-Bands # 5.2 1.5 - 8.1 01/21/2016 [facility] HEMATOLOGY Basophils 0.9 0.0 - 1.0 01/21/2016 [facility] HEMATOLOGY Lymphocytes 29.1 20.0 - 40.0 01/21/2016 [facility] HEMATOLOGY Eosinophils 5.6 0.0 - 4.0 01/21/2016 [facility] ELECTROLYTES AGAP 11.0 10.0 - 20.0 01/20/2016 [facility] ELECTROLYTES eGFR 116 01/20/2016 Result Comment: [...] should be multiplied by the estimated BMI. [facility] ELECTROLYTES Potassium Lvl 4.0 3.5 - 5.1 01/20/2016 [facility] ELECTROLYTES Sodium Lvl 137 135 - 145 01/20/2016 [facility] ELECTROLYTES CO2 26 24 - 32 01/20/2016 [facility] ELECTROLYTES Calcium Lvl 8.7 8.5 - 10.5 01/20/2016 [facility] ELECTROLYTES Chloride Lvl 104 95 - 109 01/20/2016 [facility] ELECTROLYTES Creatinine Lvl 0.78 0.50 - 1.40 01/20/2016 [facility] ELECTROLYTES BUN 8 7 - 22 01/20/2016 [facility] ELECTROLYTES Glucose Lvl 93 70 - 99 01/20/2016 [facility] HEMATOLOGY RBC 4.24 4.20 - 5.40 01/20/2016 [facility] HEMATOLOGY RDW 14.3 11.5 - 14.5 01/20/2016 [facility] HEMATOLOGY Platelet 422 133 - 450 01/20/2016 [facility] MPV 7.7 7.4 - 10.4 01/20/2016 [facility] HEMATOLOGY Hgb 10.1 12.0 - 16.0 01/20/2016 [facility] HEMATOLOGY Hct 30.9 36.0 - 48.0 01/20/2016 [facility] HEMATOLOGY MCV 72.9 80.0 - 98.0 01/20/2016 [facility] HEMATOLOGY MCH 23.7 27.0 - 31.0 01/20/2016 [facility] HEMATOLOGY MCHC 32.5 32.0 - 36.0 [...] HEMATOLOGY Basophils 0.7 0.0 - 1.0 01/20/2016 [facility] HEMATOLOGY Segs-Bands # 5.4 1.5 - 8.1 01/20/2016 [facility] HEMATOLOGY Lymphocytes # 2.8 1.0 - 5.5 01/20/2016 [facility] HEMATOLOGY Microcyte 1+ *ABN* (01/20/16 7:07 AM) None Seen 01/20/2016 [facility] HEMATOLOGY Segs 55.5 45.0 - 75.0 [...] STOOL UA Spec Grav 1.025 <=1.030 01/18/2016 [facility] URINE AND STOOL UA Turbidity Clear (01/18/16 6:04 PM) Clear 01/18/2016 [facility] URINE AND STOOL UA Ketones 20 mg/dL Negative mg/dL 01/18/2016 [facility] URINE AND STOOL UA Glucose Negative mg/dL Negative mg/dL 01/18/2016 [facility] URINE AND STOOL UA Protein 30 mg/dL Negative mg/dL 01/18/2016 [facility] URINE AND STOOL UA pH 5.0 5.0 - 8.0 01/18/2016 [facility] URINE AND STOOL UA Bili Negative *NA* (01/18/16 6:04 PM) Negative 01/18/2016 [facility] URINE AND STOOL UA Nitrite Negative (01/18/16 6:04 PM) Negative 01/18/2016 [facility] URINE AND STOOL UA Urobilinogen 2.0 0.1 - 1.0 01/18/2016 [facility] URINE AND STOOL UA Blood Negative (01/18/16 6:04 PM) Negative 01/18/2016 [facility] HEMATOLOGY PTT 32.3 22.9 - 35.8 01/18/2016 [facility] HEMATOLOGY PT 15.2 12.0 - 14.7 01/18/2016 [facility] HEMATOLOGY INR 1.18 0.85 - 1.17 01/18/2016 [facility] CHEM PANEL Magnesium Lvl 1.8 1.8 - 2.4 01/18/2016 [facility] CHEM PANEL eGFR 128 01/18/2016 Result [...] PANEL Phosphorus 3.1 2.5 - 4.5 01/18/2016 [facility] HEMATOLOGY MCV 72.7 80.0 - 98.0 01/18/2016 [facility] HEMATOLOGY Hct 30.9 36.0 - 48.0 01/18/2016 [facility] HEMATOLOGY Hgb 9.6 12.0 - 16.0 01/18/2016 [facility] HEMATOLOGY RBC 4.26 4.20 - 5.40 01/18/2016 [facility] HEMATOLOGY MCH 22.6 27.0 - 31.0 01/18/2016 [facility] HEMATOLOGY WBC 19.1 3.7 - 10.4 01/18/2016 [facility] HEMATOLOGY MCHC 31.1 32.0 - 36.0 01/18/2016 [facility] HEMATOLOGY RDW 14.1 11.5 - 14.5 01/18/2016 [facility] HEMATOLOGY Platelet 375 133 - 450 01/18/2016 [facility] HEMATOLOGY MPV 7.9 7.4 - 10.4 01/18/2016 [facility] HEMATOLOGY Lymphocytes # 2.7 1.0 - 5.5 01/18/2016 [facility] HEMATOLOGY Eosinophils # 0.2 0.0 - 0.5 01/18/2016 [facility] HEMATOLOGY Basophils # 0.1 0.0 - 0.2 01/18/2016 [facility] HEMATOLOGY Microcyte 1+ *ABN* (01/18/16 2:49 PM) None Seen 01/18/2016 [facility] Monocytes # 2.1 0.0 - 0.8 01/18/2016 [facility] Eosinophils 1.2 0.0 - 4.0 01/18/2016 [facility] Basophils 0.5 0.0 - 1.0 01/18/2016 [facility] Segs-Bands # 13.9 1.5 - 8.1 01/18/2016 [facility] Lymphocytes 14.3 20.0 - 40.0 01/18/2016 [facility] Segs 72.9 45.0 - 75.0 01/18/2016 [facility] Monocytes 11.1 2.0 - 12.0 01/18/2016 [facility] Sed Rate 4 0 - 20 01/18/2016 [facility] IMMUNOLOGY C-REACTIVE PROTEIN 165.0 <=2.9 mg/L 01/18/2016 [facility] SPECIAL CHEMISTRY Hgb A1C 7.6 <=5.6 % 01/18/2016 [facility] Pathology Reports No Data Provided for This Section Diagnostic Reports No Data Provided for This Section Consultation Notes No Data Provided for This Section Discharge Summaries No Data Provided for This Section History and Physicals No Data Provided for This Section Vital Signs Vital Sign Value Date Comments Source Weight 300 02/09/2016 [id number] Height 67 02/09/2016 [id number] Temperature Oral (F) 98.0 F 02/09/2016 [id number] Heart Rate 92 02/09/2016 [id number] Diastolic (mm Hg) 76 02/09/2016 [id number] Systolic (mm Hg) 144 02/09/2016 [id number] Systolic (mm Hg) 130 01/21/2016 [facility] Diastolic (mm Hg) 76 01/21/2016 [facility] Heart Rate 73 01/21/2016 [facility] Respitory Rate 16 01/21/2016 [facility] Temperature Oral (F) 98.6 F 01/21/2016 [facility] Respitory Rate 16 01/21/2016 [facility] Systolic (mm Hg) 144 01/21/2016 [facility] Diastolic (mm Hg) 72 01/21/2016 [facility] Heart Rate 78 01/21/2016 [facility] Temperature Oral (F) 98.2 F 01/21/2016 [facility] Temperature Oral (F) 98.0 F 01/21/2016 [facility] Heart Rate 73 01/21/2016 [facility] Respitory Rate 16 01/21/2016 [facility] Systolic (mm Hg) 134 01/21/2016 [facility] Diastolic (mm Hg) 73 01/21/2016 [facility] Height 170.18 cm 01/18/2016 [facility] Weight 136.42 01/18/2016 [facility] Encounters Location Location Details Encounter Type Encounter Number Reason For Visit Attending Provider ADM Date DC Date Status Source [facility] Inpatient [id number] Grace Reyesre 01/18/2016 01/21/2016 [facility] Outpatient [id number] BAUTISTA EDWARDS 01/19/2016 Active [facility] Outpatient [id number] BAUTISTA EDWARDS 01/31/2016 Active [facility] F/U FROM [facility] 01/21/16 [id number] 02/09/2016 02/09/2016 [id number] Outpatient [id number] BAUTISTA EDWARDS 02/14/2016 Active [facility] Procedures Procedure Code Date Perfomer Comments Source Incision and drainage of abscess (eg, carbuncle, suppurative hidradenitis, cutaneous or subcutaneous abscess, cyst, furuncle, or paronychia); complicated or multiple [id number] 01/19/2016 [facility] [id number] 04/02/2003 [facility] Assessment and Plan Assessment and Plan [...] Surgical Procedures: 01/19/16 09:25 I&D GLUTEL ABSCESS [id number] Primary Surgeon: Bautista Edwards MD (Service: GEN) [...] Time Meds: None Continuous Infusions: None 01/21/2016 [facility] Plan of Care No Data Provided [...] . Status: No Feb 09, 2016 02/09/2016 [id number] Social History TypeResponse Substance Abuse Use: None. [...] No; Reg Smoking Cessation Counseling No 01/18/2016 [facility] Family History No Data Provided for This Section Advance Directives No Data Provided for This Section Functional Status No Data Provided for This Section
[2018-10-23 16:45] VITALS: BP 145/75
--- NOTE | 2018-10-23 16:49 | Operative Report ---
DATE OF PROCEDURE: 10/23/2018 SURGEON: Carlos Verma MD PROCEDURE: Esophagogastroduodenoscopy with biopsies. INDICATION FOR EGD: Acid reflux, upper abdominal pain. MEDICATIONS: The patient was done under MAC, please see anesthesiologist's note. PROCEDURE IN DETAIL: With the patient in left lateral decubitus position, flexible fiberoptic Olympus gastroscope was introduced into the esophagus under direct visualization without any difficulty. There was some patchy erythema noted in distal esophagus. Minute tongue of velvety red mucosa was noted to extend proximally from the GE junction that was biopsied to rule out Austin's. The scope was then advanced with ease into the stomach. Mucosa overlying the antrum and the body revealed some patchy erythema and low-grade to moderate edema and biopsies were obtained and sent to stain for H pylori. The pylorus was of normal contour and shape, it was intubated with ease and the scope was advanced all the way to the second portion of the duodenum. Biopsies were obtained from the second portion and duodenal bulb to rule out sprue. The scope was then withdrawn back into the stomach and retroflexed, mucosa overlying the fundus and cardia appeared to be within normal limits. The scope was then straightened out, it was subsequently withdrawn. The patient tolerated the procedure well. IMPRESSION: 1. Mild distal esophagitis. 2. Rule out Austin esophagus. 3. Gastritis, biopsied. Biopsies sent to stain for Helicobacter pylori. 4. Rule out sprue. PLAN: Follow up histology. Initiate Protonix 40 mg one p.o. q.a.m. a.c. Carlos Verma MD [facility] [place] /[id number]
== END | disposition home or self-care (01) ==
LOC: ENDO 11:54
PROVIDERS: ATTEND Internal Medicine Gastroenterology
DX: K29.70 Gastritis, unspecified, without bleeding (principal); K20.9 Esophagitis, unspecified; K21.9 Gastro-esophageal reflux disease without esophagitis; K59.00 Constipation, unspecified; I10 Essential (primary) hypertension; E11.9 Type 2 diabetes mellitus without complications; E66.01 Morbid (severe) obesity due to excess calories; G51.0 Bell's palsy; F31.9 Bipolar disorder, unspecified; F41.9 Anxiety disorder, unspecified; Z88.0 Allergy status to penicillin; Z88.8 Allergy status to other drugs, medicaments and biological substances; Z01.810 Encounter for preprocedural cardiovascular examination; Z79.84 Long term (current) use of oral hypoglycemic drugs; Z68.41 Body mass index [BMI] 40.0-44.9, adult
CPT/HCPCS: 36415; 43239; 81025; 82948; 93005; J2250; J2704; J3010

== ENCOUNTER → 2018-10-30 | Outpatient (CLI) | payer BC ==
[~2018-10-30] MED LIST changes: +DIATRIZOATE MEGL/DIATRIZOA SOD 30 ML BTL PO ONE; -FENTANYL CITRATE/PF 100MCG/2 ML INJ ONE; +IOPAMIDOL 370 MG/ML 200 ML INFUS..BTL INJ ONE; -MIDAZOLAM HCL 2 MG/2 ML VIAL ONE; -PROPOFOL IV EMULSION 10 MG/ML 20 ML VIAL ONE; +SODIUM CHLORIDE 0.9% 50ML 50 ML ONE
[2018-10-30 10:36] LABS: BLOOD UREA NITROGEN 8 mg/dL (7-26); BUN/CREATININE RATIO 11 (6-25); CREATININE, SERUM 0.76 mg/dL (0.57-1.11); EST GLOMERULAR FILTRATION RATE > 60 ML/MIN (60-)
--- NOTE | 2018-10-30 13:02 | Diagnostic Imaging Report ---
EXAM: CT Abdomen and Pelvis WITH intravenous contrast INDICATION: Abdominal pain, diarrhea COMPARISON: CT abdomen pelvis of 10/18/2018 TECHNIQUE: Abdomen and pelvis were scanned utilizing a multidetector helical scanner from the lung base to the pubic symphysis after administration of IV contrast. Coronal and sagittal reformations were obtained. Routine protocol was performed. Scan was performed when during portal venous phase. IV CONTRAST: 100mL of Isovue 370 ORAL CONTRAST: Gastrografin COMPLICATIONS: None RADIATION DOSE: Total DLP: 852.2 mGy*cm Dose modulation, iterative reconstruction, and/or weight based adjustment of the mA/kV was utilized to reduce the radiation dose to as low as reasonably achievable. FINDINGS: LOWER THORAX: Normal. HEPATOBILIARY: No focal hepatic lesions. No biliary ductal dilatation. The gallbladder appears unremarkable. SPLEEN: No splenomegaly. PANCREAS: No focal masses or ductal dilatation. ADRENALS: No adrenal nodules. KIDNEYS/URETERS: No hydronephrosis, stones, or solid mass lesions. PELVIC ORGANS/BLADDER: Unremarkable. PERITONEUM / RETROPERITONEUM: No free air or fluid. LYMPH NODES: No lymphadenopathy. VESSELS: Unremarkable. GI TRACT: No distention or wall thickening. BONES AND SOFT TISSUES: Unremarkable. IMPRESSION: No acute findings in the abdomen or pelvis. Signed by: John Paul Osorio MD on 10/30/2018 12:59 PM
== END ==
LOC: CT 09:50
PROVIDERS: ATTEND Internal Medicine Gastroenterology
DX: R19.7 Diarrhea, unspecified (principal); R10.9 Unspecified abdominal pain
CPT/HCPCS: 36415; 74177; 81025; 82565; 84520; Q9967

== ENCOUNTER 2019-11-03 10:40 | Inpatient (IN) | payer BC, OTHER, SELFPAY ==
[~2019-11-03] VITALS: Ht 170.2 cm; Wt 133.4 kg
[~2019-11-03 10:40] MED LIST changes: -DIATRIZOATE MEGL/DIATRIZOA SOD 30 ML BTL PO ONE; -IOPAMIDOL 370 MG/ML 200 ML INFUS..BTL INJ ONE; -SODIUM CHLORIDE 0.9% 50ML 50 ML ONE
[2019-11-03] MEDS ORDERED: CEFEPIME 2 GM/NS 0.9% 100 ML 100 ML IV STA (11:20)
[2019-11-03] MEDS ORDERED: VANCOMYCIN 1GM/NS 250 ML 250 ML IV STA (11:20)
[2019-11-03] MEDS ORDERED: SODIUM CHLORIDE 0.9% 1000ML 1,000 ML IV STA ×3 (11:28→13:55)
[2019-11-03] MEDS ORDERED: KETOROLAC TROMETHAMINE 30 MG/ML VIAL IV STA (11:46)
[2019-11-03] MEDS ORDERED: CEFOXITIN SODIUM 2 G/VIAL IV ONE (11:48)
[2019-11-03] MEDS ORDERED: SODIUM CHLORIDE 0.9% 250ML 250 ML ONE (11:49)
[2019-11-03] MEDS ORDERED: SODIUM CHLORIDE 0.9% 1000ML 2,000 ML ONE (11:49)
[2019-11-03] MEDS ORDERED: SODIUM CHLORIDE 0.9% 100 ML ONE (11:52)
[2019-11-03 12:46] LABS: BASOPHILS # (AUTO) 0.1 (0.0-0.1); BASOPHILS % 0.3 % (0.0-1.0); EOSINOPHILS # (AUTO) 0.1 (0.0-0.4); EOSINOPHILS % 0.5 % (0.0-6.0); HEMATOCRIT 36.9 % (34.2-44.1); HEMOGLOBIN 11.3 g/dL (12.0-16.0); LYMPHOCYTES % 12.3 % (18.0-39.1); MEAN CORPUSCULAR HEMOGLOBIN 23.6 pg (28-32); MEAN CORPUSCULAR HGB CONC 30.6 g/dL (31-35); MONOCYTES # (AUTO) 1.6 (0.2-0.8); MONOCYTES % 9.5 % (4.4-11.3); NEUTROPHILS # (AUTO) 12.6 (2.1-6.9); NEUTROPHILS % 76.8 % (38.7-80.0); PLATELET COUNT 459 x10e3/uL (140-360); RED BLOOD COUNT 4.79 x10e6/uL (3.6-5.1); RED CELL DISTRIBUTION WIDTH 13.5 % (11.7-14.4)
--- OUTSIDE RECORDS SUMMARY | 2019-11-03 13:26 | XMS REPORT | Continuity of Care Document ---
Author Author [employer] Organization [employer] Address Unknown Phone Unavailable Care Team Providers Care Airway Controller Name Role Phone Word[employer] Information PAIEON Unavailable Un available Problems Problem Status Onset Date Classification Date Reported Comments Source BILATERAL PILONIDAL ABSCESS, FEBRILE. 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) Re solved Problem [facility] Family history: Infectious disease (cont ext-dependent category) Resolved Pr oblem 01/24/2016 [facility] History of - gynecological disorder (con text-dependent category) Resolved Pr oblem 01/24/2016 [facility] Hypertensive disorder, systemic arterial (disorder) Resolved Problem 01/24/2016 [facility] Bipolar disorder (disorder) Re solved Problem [facility] Depressive disorder (disorder) Resolved Problem [facility] Morbid obesity (disorder) Reso lved Problem [facility] Hidradenitis suppurativa (disorder) Resolved Problem [facility] Morbid obesity Active Problem 02/29/2016 [id number] 2568 Abscess of buttock Active Diagnosis 02/29/2016 [id number] 2568 Hyperglycemia due to type 2 diabetes mellitus Active Problem 02/29/2016 [id number] Cellulitis Active Diagnosis 02/29/2016 [id number] PILONIDAL CYST WITH ABSCESS Ac tive [facility] Medications Medication Details Route Status Patient Instructions Ordering Provider Order Date Source Mupirocin 1 application to aff ected area Externally Active 2 % Externally Three times a day Hasan 02/09/2016 [id number] Pneumovax 23 Notes: (Same as: Pneumovax 23) Refrigerate Inactive 01/21/2016 [facility] Acetaminophen 300 MG / Codeine Phosphate 30 MG Oral Tablet [Tylenol with Codeine #3] 1 tab, PO, Q6H, PRN Pain Score 1-3, X 5 day, # 20 tab, 0 Refill(s) Active 01/20/2016 [facility] Acetaminophen 300 MG / Codeine Phosphate 30 MG Oral Tablet [Tylenol with Codeine #3] Notes: Do not exceed 4gm/day of acetamin ophen. (Same as: Tylenol with Codeine # 3) No Longer Active 01/20/2016 [facility] doxycycline hyclate 100 MG Oral Capsule 100 mg = 1 cap, PO, Q12H, X 10 day, # 20 cap, 0 Refill(s) Active 01/20/2016 [facility] famotidine (ANES) Route: IV, D rug form: INJ, ONCE, Stop date: 01/19/16 9:44:00 CDT Inactive 01/19/2016 [facility] succinylcholine (ANES) Route: IV, Drug form: INJ, ONCE, Stop date: 01/19/16 9:44:00 CDT Inactive 01/19/2016 [facility] fentaNYL (ANES) Route: IV, Jasper g form: INJ, ONCE, Stop date: 01/19/16 9:44:00 CDT Inactive 01/19/2016 [facility] ondansetron (ANES) Route: IV, Drug form: INJ, ONCE, Stop date: 01/19/16 9:44:00 CDT Inactive 01/19/2016 [facility] propofol (ANES) Route: IV, Jasper g form: INJ, ONCE, Stop date: 01/19/16 9:44:00 CDT Inactive 01/19/2016 [facility] lidocaine (ANES) Route: IV, Dr ug form: INJ, ONCE, Stop date: 01/19/16 9:44:00 CDT Inactive 01/19/2016 [facility] midazolam (ANES) Route: IV, Dr ug form: SOLN, ONCE, Stop date: 01/19/16 9:44:00 CDT Inactive 01/19/2016 [facility] LR 1000 mL INJ (ANES) Route: I V, Total Volume: 1,000, Start date: 01/19/16 9:05:00 CDT, Stop date: 01/19/16 10:05:00 CDT Inactive 01/19/2016 [facility] influenza virus vaccine, inactivated Notes: (Same as: Fluzone Quadrivalent, Fluarix Quadrivalent) For 3 years of age and older (0.5 mL IM) Shake well before use Inactive 01/19/2016 [facility] pneumococcal capsular polysaccharide typ e 1 vaccine / pneumococcal capsular polysaccharide type 10A vaccine / pneumococcal capsular polysaccharide type 11A vaccine / pneumococcal capsular polysaccharide type 12F vaccine / pneumococcal capsular polysacchar Notes: (Same as: Pneumovax 23) Refrigerate No Longer Active 01/19/2016 [facility] Albuterol 0.833 MG/ML / Ipratropium Brom tammy 0.167 MG/ML Inhalant Solution 3 mL, Route: NEB, Dosing Weight 136.42, kg, ONCE, STAT, Start date: 01/19/16 6:47:00 CDT, Stop date: 01/19/16 6:47:00 CDT Inactive 01/19/2016 [facility] Calcium Chloride 0.0014 MEQ/ML / Potassi um Chloride 0.004 MEQ/ML / Sodium Chloride 0.103 MEQ/ML / Sodium Lactate 0.028 MEQ/ML Injectable Solution 1,000 mL, Rate: 25 ml/hr, Infuse over: 4 0 hr, Route: IV, Dosing Weight 136.42 kg, Total Volume: 1,000, Start date: 01/19/16 6:47:00 CDT, Duration: 30 day, Stop date: 02/18/16 6:46:00 DIRECTOR OF PLACEMENT Inactive 01/19/2016 [facility] Sodium Chloride 0.154 MEQ/ML Injectable Solution 500 mL, Rate: 25 ml/hr, Infuse over: 20 hr, Route: IV, Dosing Weight 136.42 kg, Total Volume: 500, Start date: 01/19/16 6:47:00 CDT, Duration: 30 day, Stop date: 02/18/16 6:46:00 DIRECTOR OF PLACEMENT Inactive 01/19/2016 [facility] Lisinopril Notes: (Same as: Pr inivil, Zestril) No Longer Active 01/18/2016 [facility] K-Dur 20 Notes: (Same as: K-Du r 20) "Do Not Crush" With food and full glass of water Inactive 01/18/2016 [facility] sodium chloride 0.9% 1000 ml INJ 1,000 mL 1,000 mL, Rate: 100 ml/hr, Infuse over: 10 hr, Route: IV, Dosing Weight 136.42 kg, Total Volume: 1,000, Start date: 01/18/16 16:12:00 CDT, Duration: 30 day, Stop date: 02/17/16 16:11:00 DIRECTOR OF PLACEMENT No Longe r Active 01/18/2016 [facility] heparin sodium, porcine 2500 UNT/ML Injectable Solutio n Notes: porcine heparin No Longer Active 01/18/2016 [facility] Clindamycin 600 mg, 50 mL, Rou te: IVPB, Drug form: INJ, ABXQ8H, kg, Start date: 01/18/16 14:00:00 CDT, Duration: 30 day, Stop date: 02/17/16 6:00:00 DIRECTOR OF PLACEMENT No Longer Active 01/18/2016 [facility] Dextrose 50% Syringe 12.5 gm, 25 mL, Route: IVP, Drug Form: INJ, kg, PRN, PRN Blood Glucose Results, Start date: 01/18/16 13:38:00 CDT, Duration: 30 day, Stop date: 02/17/16 12:37:00 DIRECTOR OF PLACEMENT No Longer Active 01/18/2016 [facility] Glucagon 1 mg, Route: IM, Drug form: PDR/INJ, PRN, kg, PRN Blood Glucose Results, Start date: 01/18/16 13:38:00 CDT, Duration: 30 day, Stop date: 02/17/16 12:37:00 DIRECTOR OF PLACEMENT No Longer Active 01/18/2016 [facility] Insulin, Aspart, Human Notes: Roll in palms of hands gently; Do not shake vigorously. (Same as: NovoLOG) "single patient use only" WASTE: F/P - Black; E - Municipal Trash Bin Stable for 28 days at room temperature. Expires in days from Date No Longer Active 01/18/2016 [facility] Sodium Chloride 0.9% IV 1000 mL 1,000 mL, Rate: 100 ml/hr, Infuse over: 10 hr, Route: IV, Total Volume: 1,000, Start date: 01/18/16 13:38:00 CDT, Duration: 2 day, Stop date: 01/20/16 13:37:00 CDT Inactive 01/18/2016 [facility] Morphine Notes: (Same as:MORPh ine Sulfate) No Longer Active 01/18/2016 [facility] Naproxen Notes: (Same as: Napr osyn) Take with food. No Longer Active 01/18/2016 [facility] Metformin 1,000 mg, PO, BID, 0 Refill(s) Active 01/18/2016 [facility] Lisinopril 20 mg, PO, Daily, 0 Refill(s) Active 01/18/2016 [facility] NuvaRing 1 ea, VAG, q4wk, 0 Re fill(s) Active 01/18/2016 [facility] Lisinopril 1 tablet Orally Active 20 MG Orally Once a day Hasan [id number] Allergies, Adverse Reactions, Alerts Substance Category Reaction Severity Reaction type Status Date Reported Comments Source penicillin Adverse Reaction Info Not Available Adverse Reaction Active 02/09/2016 [id number] 2568 penicillins Assertion Drug allergy Active [facility] Immunizations Immunization Date Given Site Status Last Updated Comments Source pneumococcal 23-valent vaccine 01/21/2016 Left deltoid completed [facility] influenza virus vaccine, inactivated 01/21/2016 Right deltoid completed [facility] Results Order Name Results Value Reference Range Date Interpretation Comments Source ELECTROLYTES AGAP 12.3 10.0 - 20.0 01/21/2016 [facility] ELECTROLYTES Glucose Lvl 98 70 - 99 01/21/2016 [facility] ELECTROLYTES BUN 7 7 - 22 01/21/2016 [facility] ELECTROLYTES Chloride Lvl 104 95 - 109 01/21/2016 [facility] ELECTROLYTES CO2 26 24 - 32 01/21/2016 [facility] ELECTROLYTES Sodium Lvl 138 135 - 145 01/21/2016 [facility] ELECTROLYTES Potassium Lvl 4.3 3.5 - 5.1 01/21/2016 [facility] ELECTROLYTES Creatinine Lvl 0.6 7 0.50 - 1.40 01/21/2016 [facility] ELECTROLYTES eGFR 135 01/21/2016 Result Comment: [...] should be multiplied by the estimated BMI. [facility] ELECTROLYTES Calcium Lvl 8.4 8.5 - 10.5 01/21/2016 [facility] HEMATOLOGY RDW 14.4 11.5 - 14.5 01/21/2016 [facility] HEMATOLOGY MPV 7.3 7.4 - 10.4 01/21/2016 [facility] Platelet 400 133 - 450 01/21/2016 [facility] RBC 4.24 4.20 - 5.40 01/21/2016 [facility] HEMATOLOGY WBC 9.6 3.7 - 10.4 01/21/2016 [facility] MCV 72.4 80.0 - 98.0 01/21/2016 [facility] MCHC 31.4 32.0 - 36.0 01/21/2016 [facility] Hct 30.7 36.0 - 48.0 01/21/2016 [facility] Hgb 9.6 12.0 - 16.0 01/21/2016 [facility] MCH 22.8 27.0 - 31.0 01/21/2016 [facility] Eosinophils # 0.5 0.0 - 0.5 01/21/2016 [facility] Monocytes # 1.0 0.0 - 0.8 01/21/2016 [facility] Microcyte 1+ *ABN* (01/21/16 4:41 AM) None Seen 01/21/2016 [facility] Lymphocytes # 2.8 1.0 - 5.5 01/21/2016 [facility] Basophils # 0.1 0.0 - 0.2 01/21/2016 [facility] Segs 53.9 45.0 - 75.0 01/21/2016 [facility] Monocytes 10.5 2.0 - 12.0 01/21/2016 [facility] HEMATOLOGY Segs-Bands # 5.2 1.5 - 8.1 01/21/2016 [facility] HEMATOLOGY Basophils 0.9 0.0 - 1.0 01/21/2016 [facility] HEMATOLOGY Lymphocytes 29.1 20.0 - 40.0 01/21/2016 [facility] HEMATOLOGY Eosinophils 5.6 0.0 - 4.0 01/21/2016 [facility] ELECTROLYTES AGAP 11.0 10.0 - 20.0 01/20/2016 [facility] ELECTROLYTES eGFR 116 01/20/2016 Result Comment: [...] should be multiplied by the estimated BMI. [facility] ELECTROLYTES Potassium Lvl 4.0 3.5 - 5.1 01/20/2016 [facility] ELECTROLYTES Sodium Lvl 137 135 - 145 01/20/2016 [facility] ELECTROLYTES CO2 26 24 - 32 01/20/2016 [facility] ELECTROLYTES Calcium Lvl 8.7 8.5 - 10.5 01/20/2016 [facility] ELECTROLYTES Chloride Lvl 104 95 - 109 01/20/2016 [facility] ELECTROLYTES Creatinine Lvl 0.7 8 0.50 - 1.40 01/20/2016 [facility] ELECTROLYTES BUN 8 7 - 22 01/20/2016 [facility] ELECTROLYTES Glucose Lvl 93 70 - 99 01/20/2016 [facility] HEMATOLOGY RBC 4.24 4.20 - 5.40 01/20/2016 [facility] HEMATOLOGY RDW 14.3 11.5 - 14.5 01/20/2016 [facility] HEMATOLOGY Platelet 422 133 - 450 01/20/2016 [facility] HEMATOLOGY MPV 7.7 7.4 - 10.4 01/20/2016 [facility] HEMATOLOGY Hgb 10.1 12.0 - 16.0 01/20/2016 [facility] HEMATOLOGY Hct 30.9 36.0 - 48.0 01/20/2016 [facility] HEMATOLOGY MCV 72.9 80.0 - 98.0 01/20/2016 [facility] HEMATOLOGY MCH 23.7 27.0 - 31.0 01/20/2016 [facility] HEMATOLOGY MCHC 32.5 32.0 - 36.0 01/20/2016 [facility] HEMATOLOGY WBC 9.7 3.7 - 10.4 01/20/2016 [facility] HEMATOLOGY Lymphocytes 28.5 20.0 - 40.0 01/20/2016 [facility] HEMATOLOGY Monocytes 9.5 2.0 - 12.0 01/20/2016 [facility] HEMATOLOGY Eosinophils 5.8 0.0 - 4.0 01/20/2016 [facility] HEMATOLOGY Monocytes # 0.9 0.0 - 0.8 01/20/2016 [facility] HEMATOLOGY Eosinophils # 0.6 0.0 - 0.5 01/20/2016 [facility] HEMATOLOGY Basophils # 0.1 0.0 - 0.2 01/20/2016 [facility] HEMATOLOGY Basophils 0.7 0.0 - 1.0 01/20/2016 [facility] HEMATOLOGY Segs-Bands # 5.4 1.5 - 8.1 01/20/2016 [facility] HEMATOLOGY Lymphocytes # 2.8 1.0 - 5.5 01/20/2016 [facility] HEMATOLOGY Microcyte 1+ *ABN* (01/20/16 7:07 AM) None Seen 01/20/2016 [facility] HEMATOLOGY Segs 55.5 45.0 - 75.0 01/20/2016 [facility] URINE CHEM U Preg Negat gianna (01/19/16 6:57 AM) Negative 01/19/2016 [facility] URINE AND STOOL UA Mucus Many /LPF None Seen /LPF 01/18/2016 [facility] URINE AND STOOL UA RBC 1 0 - 2 01/18/2016 [facility] URINE AND STOOL UA Bacteria Occasional /HPF None Seen /HPF 01/18/[address] [facility] URINE AND STOOL UA Color Sahra 01/18/2016 [facility] URINE AND STOOL UA Sq Epi Occasional /LPF Few /LPF 01/18/2016 [facility] URINE AND STOOL UA Leuk Est Negative (01/18/16 6:04 PM) Negative 01/18/2016 [facility] URINE AND STOOL UA WBC 2 0 - 5 01/18/2016 [facility] URINE AND STOOL UA Spec Grav 1.025 <=1.030 01/18/2016 [facility] URINE AND STOOL UA Turbidity Clear (01/18/16 6:04 PM) Clear 01/18/2016 [facility] URINE AND STOOL UA Ketones 20 mg/dL Negative mg/dL 01/18/2016 [facility] URINE AND STOOL UA Glucose Negative mg/dL Negative mg/dL 01/18/2016 [facility] URINE AND STOOL UA Protein 30 mg/dL Negative mg/dL 01/18/2016 [facility] URINE AND STOOL UA pH 5.0 5.0 - 8.0 01/18/2016 [facility] URINE AND STOOL UA Bili Negative *NA* (01/18/16 6:04 PM) Negative 01/18/2016 [facility] URINE AND STOOL UA Nitrite Negative (01/18/16 6:04 PM) Negative 01/18/2016 [facility] URINE AND STOOL UA Urobilinogen 2.0 0.1 - 1.0 01/18/2016 [facility] URINE AND STOOL UA Blood Negative (01/18/16 6:04 PM) Negative 01/18/2016 [facility] HEMATOLOGY PTT 32.3 22.9 - 35.8 01/18/2016 [facility] HEMATOLOGY PT 15.2 12.0 - 14.7 01/18/2016 [facility] HEMATOLOGY INR 1.18 0.85 - 1.17 01/18/2016 [facility] CHEM PANEL Magnesium Lvl 1.8 1.8 - 2.4 01/18/2016 [facility] CHEM PANEL eGFR 128 01/18/2016 Result [...] PANEL Phosphorus 3.1 2.5 - 4.5 01/18/2016 [facility] HEMATOLOGY MCV 72.7 80.0 - 98.0 01/18/2016 [facility] HEMATOLOGY Hct 30.9 36.0 - 48.0 01/18/2016 [facility] HEMATOLOGY Hgb 9.6 12.0 - 16.0 01/18/2016 [facility] HEMATOLOGY RBC 4.26 4.20 - 5.40 01/18/2016 [facility] HEMATOLOGY MCH 22.6 27.0 - 31.0 01/18/2016 [facility] HEMATOLOGY WBC 19.1 3.7 - 10.4 01/18/2016 [facility] HEMATOLOGY MCHC 31.1 32.0 - 36.0 01/18/2016 [facility] RDW 14.1 11.5 - 14.5 01/18/2016 [facility] HEMATOLOGY Platelet 375 133 - 450 01/18/2016 [facility] HEMATOLOGY MPV 7.9 7.4 - 10.4 01/18/2016 [facility] Lymphocytes # 2.7 1.0 - 5.5 01/18/2016 [facility] HEMATOLOGY Eosinophils # 0.2 0.0 - 0.5 01/18/2016 [facility] HEMATOLOGY Basophils # 0.1 0.0 - 0.2 01/18/2016 [facility] Microcyte 1+ *ABN* (01/18/16 2:49 PM) None Seen 01/18/2016 [facility] Monocytes # 2.1 0.0 - 0.8 01/18/2016 [facility] Eosinophils 1.2 0.0 - 4.0 01/18/2016 [facility] Basophils 0.5 0.0 - 1.0 01/18/2016 [facility] Segs-Bands # 13.9 1.5 - 8.1 01/18/2016 [facility] Lymphocytes 14.3 20.0 - 40.0 01/18/2016 [facility] Segs 72.9 45.0 - 75.0 01/18/2016 [facility] Monocytes 11.1 2.0 - 12.0 01/18/2016 [facility] Sed Rate 4 0 - 20 01/18/2016 [facility] IMMUNOLOGY C-REACTIVE PROTEIN 165.0 <=2.9 mg/L 01/18/2016 [facility] SPECIAL CHEMISTRY Hgb A1C 7.6 <=5.6 % 01/18/2016 [facility] Pathology Reports No Data Provided for This Section Diagnostic Reports No Data Provided for This Section Consultation Notes No Data Provided for This Section Discharge Summaries No Data Provided for This Section History and Physicals No Data Provided for This Section Vital Signs Vital Sign Value Date Comments Source Weight 300 02/09/2016 [id number] 2568 Height 67 1 04/10/2015 [id number] 2568 Temperature Oral (F) 98.0 F 02/09/2016 [id number] Heart Rate 92 02/09/2016 [id number] 2568 Diastolic (mm Hg) 76 02/09/2016 [id number] Systolic (mm Hg) 144 02/09/2016 [id number] Systolic (mm Hg) 130 01/21/2016 [facility] Diastolic (mm Hg) 76 01/21/2016 [facility] Heart Rate 73 01/21/2016 [facility] Respitory Rate 16 01/21/2016 [facility] Temperature Oral (F) 98.6 F 01/21/2016 [facility] Respitory Rate 16 01/21/2016 [facility] Systolic (mm Hg) 144 01/21/2016 [facility] Diastolic (mm Hg) 72 01/21/2016 [facility] Heart Rate 78 01/21/2016 [facility] Temperature Oral (F) 98.2 F 01/21/2016 [facility] Temperature Oral (F) 98.0 F 01/21/2016 [facility] Heart Rate 73 01/21/2016 [facility] Respitory Rate 16 01/21/2016 [facility] Systolic (mm Hg) 134 01/21/2016 [facility] Diastolic (mm Hg) 73 01/21/2016 [facility] Height 170.18 cm 01/18/2016 [facility] Weight 136.42 01/18/2016 [facility] Encounters Location Location Details Encounter Type Encounter Number Reason For Visit Attending Provider ADM Date DC Date Status Source [facility] Inpatient [id number] Grace Cheng 01/18/2016 01/21/2016 [facility] Outpatient [id number] BAUTISTA EDWARDS 01/19/2016 Active [facility] Outpatient [id number] BAUTISTA EDWARDS 01/31/2016 Active [facility] F/U FROM [facility] 01/21/16 [id number] 02/09/2016 02/09/2016 [id number] Outpatient [id number] BAUTISTA EDWARDS 02/14/2016 Active [facility] Procedures Procedure Code Date Perfomer Comments Source Incision and drainage of abscess (eg, ca rbuncle, suppurative hidradenitis, cutaneous or subcutaneous abscess, cyst, furuncle, or paronychia); complicated or multiple [id number] 01/19/2016 [facility] [id number] 04/02/2003 [facility] Assessment and Plan Assessment and Plan Date Source Extracted from:Title: Clinical Document Author: Bautista Edwards MD Date: 01/21/16 SURGERY PROGRESS NOTE Buatista Edwards MD, FACS SUBJECTIVE feels better, pain improved, wants to go home OBJECTIVE VSS afebrile, wound clean with serosanguinous drainage, no purulence ASSESSMENT s/p I&D gluteal abscess PLAN -ok to discharge home once outpatient wo und care arranged, po abx, patient may follow [...] 24 Hr Tmax: 98.4F (36.89c) at 01/20 03:5 7 Vital Signs are the last 5 in the past 48 hours. 24 Hr Tmin: 98.0F (36.67c) at 01/20 07: 43 Weights are the last 5 in 60 [...] 01/21/16 Pain Intensity NRS (0-10) 0 01/20/16 [place] Coma Score 15 01/20/16 [facility] Fall Score 4 01/20/16 [place] Score 23 Lines, Tubes, and Drains: 01/19/2016 21:40 Peripheral Lines: Hand Left 20 gauge Over the needle catheter Surgical Procedures: 01/19/16 09:25 I&D GLUTEL ABSCESS [id number] Primary Surgeon: Bautista Edwards MD (Service: GEN) [...] 0.5 Basophils # 0.1 Microcyte 1+ 01/19 210 Glucose POC 136 H 01/19 1712 Glucose POC 124 H 01/19 1159 Glucose POC 122 H Scheduled Meds (4): 01/18/16 14:00 clindamycin 600 mg IVPB A BXQ8H 100 ml/hr [Last Rescheduled Dt/Tm: 01/18/16 22:00:00 CDT] [eMAR Schedule: (01/21/16) 06:00, 14:00, 22:00] 01/18/16 16:00 heparin (heparin 5000 uni ts/mL injectable solution) 5,000 unit SUB-Q Q8H [Last Rescheduled Dt/Tm: 01/20/16 6:00:00 CDT] [eMAR Schedule: (01/21/16) 06:00, 14:00, 22:00] 01/18/16 17:32 lisinopril 20 mg PO Daily [Last Rescheduled Dt/Tm: 01/18/16 17:32:00 CDT] [eMAR Schedule: (01/21/16) 09:00] [Future Dose: 01/22/16 09:00] 01/21/16 10:00 pneumococcal 23-valent va ccine (Pneumovax 23) 0.5 mL IM Daily [eMAR Schedule: (01/21/16) 10:00] [Future Dose: 01/22/16 09:00] Unscheduled Meds: None PRN Meds (11): 01/18/16 13:38 Dextrose 50% in Water IV (Dextrose 50% Syringe) 12.5 gm IVP PRN 01/18/16 13:38 Dextrose 50% in Water IV (Dextrose 50% Syringe) 25 gm IVP PRN 01/20/16 16:11 acetaminophen-codeine (Ty lenol with Codeine #3 oral tablet) 1 tab PO Q6H 01/18/16 13:38 glucagon 1 mg IM PRN 01/18/16 13:38 insulin aspart 2 unit SUB -Q TID-Before Meals 01/18/16 13:38 insulin aspart 4 unit SUB -Q TID-Before Meals 01/18/16 13:38 insulin aspart 6 unit SUB -Q TID-Before Meals 01/18/16 13:38 insulin aspart 8 unit SUB -Q TID-Before Meals 01/18/16 13:38 insulin aspart 10 unit MEDINA B-Q TID-Before Meals 01/18/16 13:30 morphine Sulfate 2 mg IVP Q4H 01/18/16 13:30 naproxen 500 mg PO Q8H One Time Meds: None Continuous Infusions: None 01/21/2016 [facility] Plan of Care No Data Provided for This Section Social History Social History Date Source Social History ElementQualifiersDate Rep orted Smoke Exposure: . Second Hand Smoke Exposure: No Feb 09, 2016 Do you take Aspirin, or a blood thinner . No I do not take aspirin / or a blood thinner Feb 09, 2016 Tobacco Use: . Are you a: never smoker Feb 09, 2016 Do you drink alcohol? . Status: No Feb 09, 2016 02/09/2016 [id number] Social History TypeResponse Substance Abuse Use: None. [...] No; Reg Smoking Cessation Counseling No 01/18/2016 [facility] Family History No Data Provided for This Section Advance Directives No Data Provided for This Section Functional Status No Data Provided for This Section
--- OUTSIDE RECORDS SUMMARY | 2019-11-03 13:26 | XMS REPORT | Continuity of Care Document ---
Author Author [facility] t Organization [facility] Address [address] [place] [address] Phone Unavailable Care Team Providers Care Book Sorter Name Role Phone NO, PCP PCP Unavailable DIAN KENNEDY Attphys Unavailable LEVONETHWES MCFARLANE Attphys Unavailable JOSE MANUEL EDDY Attphys Unavailable Grace Cheng Attphys JOSE MANUEL EDDY Admphys Unavailable SkylarGrace Admphys Payers Payer Name Policy Type Policy Number Effective Date Expiration Date S dez [employer] [facility] [id number] 2018 00:00:00 [facility] Problems Condition Name Condition Details Condition Category Status Onset Date Resolution Date Last Treatment Date Treating Clinician Comments Source BILATERAL PILONIDAL ABSCESS, FEBRILE. LE BILATERAL PILONIDAL ABSCESS, FEBRILE. 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) Fe male hirsutism (disorder) Resolved Problem 01/24/2016 [facility] Problem Resolved 2016-01-24 01:47:25 Hillary Jolley Family history: Infectious disease (context-dependent category) Family history: Infectious disease (context-dependent category) Resolved Problem 01/24/2016 [facility] Problem Resolved 2016-01-24 01:47: 25 Hillary Jolley History of - gynecological disorder (context-dependent category) History of - gynecological disorder (context-dependent category) Resolved Problem 01/24/2016 [facility] Problem Resolved 2016-01-24 01: 47:25 Hillary Jolley Hypertensive disorder, systemic arterial (disorder) Hypertensive disorder, systemic arterial (disorder) Resolved Problem 01/24/2016 [facility] Problem Resolved 2016-01-24 01:47:25 Hillary Jolley Bipolar disorder (disorder) Bi polar disorder (disorder) Resolved Problem 01/24/2016 [facility] Problem Resolved 2016-01-24 01:47:25 [place] Depressive disorder (disorder) Depressive disorder (disorder) Resolved Problem 01/24/2016 [facility] Problem Resolved 2016-01-24 01:47:25 [facility] Morbid obesity (disorder) Morb id obesity (disorder) Resolved Problem 01/24/2016 [facility] Problem Resolved 2016-01-24 01:47:25 Hillary Shola Hidradenitis suppurativa (disorder) Hidradenitis suppurativa (disorder) Resolved Problem 01/24/2016 [facility] Problem Resolved 2016-01-24 01:47:25 [facility] Morbid obesity Morb id obesity Active Problem 02/29/2016 [id number] Problem Active 2016-02-29 03:47:23 [facility] Abscess of buttock Absc ess of buttock Active Diagnosis 02/29/2016 [id number] Diagnosis Active 2016-02-29 03:47:23 Hillary Jolley Hyperglycemia due to type 2 diabetes mellitus Hyperglycemia due to type 2 diabetes mellitus Active Problem 02/29/2016 [id number] Problem Active 2016-02-29 03:47:23 [facility] Cellulitis Cell ulitis Active Diagnosis 02/29/2016 [id number] Diagnosis Active 2016-02-29 03:47:23 [facility] PILONIDAL CYST WITH ABSCESS PI LONIDAL CYST WITH ABSCESS Active [facility] Diagnosis Active 2016-03-30 10:18:00 Hillary Jolley History of Past Illness Condition Name Condition Details Condition Category Status Onset Date Resolution Date Last Treatment Date Treating Clinician Comments Source Diabetes mellitus (disorder) D iabetes mellitus (disorder) Resolved 04/02/2014 Problem 01/24/2016 [facility] Problem Resolved 2014-04-02 00:00:00 2016-01-24 01:47:25 2016-01-24 01:47:25 [facility] Allergies, Adverse Reactions, Alerts Allergy Name Allergy Type Status Severity Reaction(s) Onset Date Inacti ve Date Treating Clinician Comments Source Lisinopril Allergy to Substance Active HIVES 2018-10-16 00:00:00 [facility] Penicillin Allergy to Substance Active 2018-01-16 00:00:00 [facility] penicillin penicillin Active Info Not Available 2016-02-09 00:00:0 0 [facility] penicillins penicillins Active [facility] Social [facility] Social Habit Start Date Stop Date Quantity Comments Source SmokeExposure: 2016-02-09 00:00:00 2016-02-09 00:00:00 [facility] Social History 2016-01-18 18:01:44 2016-01-18 18:01:44 [facility] Medications Ordered Medication Name Filled Medication Name Start Date Stop Da te Current Medication? Ordering Clinician Indication Dosage Frequency Signature (SIG) Comments Components Source Lisinopril 2016-02-29 03:47:23 Yes Matt Hasan 1 t ablet [facility] Mupirocin 2016-02-09 00:00:00 Yes Matt Hasan 1 application to affected area [facility] Pneumovax 23 2016-01-21 15:00:00 No Notes: (Same as: Pneumovax 23) Refrigerate [facility] Acetaminophen 300 MG / Codeine Phosphate 30 MG Oral Tablet [Tylenol with Codeine #3] 2016-01-20 21:12:00 Yes 1 tab, PO, Q6H, PRN Pain Score 1-3, X 5 day, # 20 tab, 0 Refill(s) [facility] Acetaminophen 300 MG / Codeine Phosphate 30 MG Oral Tablet [Tylenol with Codeine #3] 2016-01-20 21:11:00 No Notes: Do not exceed 4gm/day of acetaminophen. (Same as: Tylenol with Codeine # 3) [facility] doxycycline hyclate 100 MG Oral Capsule 2016-01-20 20:32:00 Yes 100 mg = 1 cap, PO, Q12H, X 10 day, # 20 cap, 0 Refill(s) [facility] famotidine (ANES) 2016-01-19 14:44:00 No Route: IV, Drug form: INJ, ONCE, Stop date: 01/19/16 9:44:00 CDT Dc jag Jolley succinylcholine ([facility]) 2016-01-19 14:44:00 No Route: IV, Drug form: INJ, ONCE, Stop date: 01/19/16 9:44:00 CDT [facility] fentaNYL ([facility]) 2016-01-19 14:44:00 No Route: IV, Drug form: INJ, ONCE, Stop date: 01/19/16 9:44:00 CDT Dc jga Jolley ondansetron ([facility]) 2016-01-19 14:44:00 No Route: IV, Drug form: INJ, ONCE, Stop date: 01/19/16 9:44:00 CDT Dc jag Jolley propofol ([facility]) 2016-01-19 14:44:00 No Route: IV, Drug form: INJ, ONCE, Stop date: 01/19/16 9:44:00 CDT [place] lidocaine ([facility]) 2016-01-19 14:44:00 No Route: IV, Drug form: INJ, ONCE, Stop date: 01/19/16 9:44:00 CDT [place] midazolam ([facility]) 2016-01-19 14:44:00 No Route: IV, Drug form: SOLN, ONCE, Stop date: 01/19/16 9:44:00 CDT Dc jag Jolley LR 1000 mL INJ ([facility]) 2016-01-19 14:05:00 No Route: IV, Total Volume: 1,000, Start date: 01/19/16 9:05:00 CDT, Stop date: 01/19/16 10:05:00 CDT [facility] influenza virus vaccine, inactivated 2016-01-19 14:00:00 No Notes: (Same as: Fluzone Quadrivalent, Fluarix Quadrivalent) For 3 years of age and older (0.5 mL IM) Shake well before use [facility] pneumococcal capsular polysaccharide typ e 1 vaccine / pneumococcal capsular polysaccharide type 10A vaccine / pneumococcal capsular polysaccharide type 11A vaccine / pneumococcal capsular polysaccharide type 12F vaccine / pneumococcal capsular polysacchar 2016-01-19 14:00:00 No Notes: (Same as: Pneumovax 23) Refrigerate [facility] Munir roshan Albuterol 0.833 MG/ML / Ipratropium Blachly 0.167 MG/ML Inha lant Solution 2016-01-19 11:47:00 No 3 mL, Route: NEB, Dosing Weight 136.42, kg, ONCE, STAT, Start date: 01/19/16 6:47:00 CDT, Stop date: 01/19/16 6:47:00 CDT [facility] [place] Calcium Chloride 0.0014 MEQ/ML / Potassi um Chloride 0.004 MEQ/ML / Sodium Chloride 0.103 MEQ/ML / Sodium Lactate 0.028 MEQ/ML Injectable Solution 2016-01-19 11:47:00 No 1,000 mL, Rate: 25 ml/hr, Infuse over: 40 hr, Route: IV, Dosing Weight 136.42 kg, Total Volume: 1,000, Start date: 01/19/16 6:47:00 CDT, Duration: 30 day, Stop date: 02/18/16 6:46:00 SPEECH LANGUAGE PATHOLOGY ASSISTANT [facility] Sodium Chloride 0.154 MEQ/ML Injectable Solution 2016-01-19 11:4 7:00 No 500 mL, Rate: 25 ml/hr, Infu se over: 20 hr, Route: IV, Dosing Weight 136.42 kg, Total Volume: 500, Start date: 01/19/16 6:47:00 CDT, Duration: 30 day, Stop date: 02/18/16 6:46:00 SPEECH LANGUAGE PATHOLOGY ASSISTANT Hillary islas Lisinopril 2016-01-18 22:32:00 No Notes: (Same as: Maria Victoria Taylor) [facility] K-Dur 20 2016-01-18 21:58:00 No Notes: (Same as: K-Dur 20) "Do Not Crush" With food and full glass of water [facility] sodium chloride 0.9% 1000 ml INJ 1,000 mL 2016-01-18 21:12:00 No 1,000 mL, Rate: 100 ml/hr, Infuse over: 10 hr, Route: IV, Dosing Weight 136.42 kg, Total Volume: 1,000, Start date: 01/18/16 16:12:00 CDT, Duration: 30 day, Stop date: 02/17/16 16:11:00 SPEECH LANGUAGE PATHOLOGY ASSISTANT Larry Jolley heparin sodium, porcine 2500 UNT/ML Injectable Solution 2016-01-18 21:00:00 No Notes: porcine heparin [facility] Clind[facility] 2016-01-18 19:00:00 No 600 mg, 50 mL, Route: IVPB, Drug form: INJ, ABXQ8H, kg, Start date: 01/18/16 14:00:00 CDT, Duration: 30 day, Stop date: 02/17/16 6:00:00 [facility] roshan Dextrose 50% Syringe 2016-01-18 18:38:00 No 12.5 gm, 25 mL, Route: IVP, Drug Form: INJ, kg, PRN, PRN Blood Glucose Results, Start date: 01/18/16 13:38:00 CDT, Duration: 30 day, Stop date: 02/17/16 12:37:00 SPEECH LANGUAGE PATHOLOGY ASSISTANT [facility] Glucagon 2016-01-18 18:38:00 No 1 mg, Route: IM, Drug form: PDR/INJ, PRN, kg, PRN Blood Glucose Results, Start date: 01/18/16 13:38:00 CDT, Duration: 30 day, Stop date: 02/17/16 12:37:00 [facility] Insulin, Aspart, Human 2016-01-18 18:38:00 No Notes: Roll in palms of hands gently; Do not shake vigorously. (Same as: NovoLOG) "single patient use only" WASTE: F/P - Black; E - Municipal Trash Bin Stable for 28 days at room temperature. Expires in days from Date [facility] Sodium Chloride 0.9% IV 1000 mL 2016-01-18 18:38:00 No 1,000 mL, Rate: 100 ml/hr, Infuse over: 10 hr, Route: IV, Total Volume: 1,000, Start date: 01/18/16 13:38:00 CDT, Duration: 2 day, Stop date: 01/20/16 13:37:00 CDT [facility] Morphine 2016-01-18 18:30:00 No Not es: (Same as:MORPhine Sulfate) [facility] Naproxen 2016-01-18 18:30:00 No Notes: (Same as: Naprosyn) Take with food. [facility] Metformin 2016-01-18 17:36:00 Yes 1, 000 mg, PO, BID, 0 Refill(s) [facility] Lisinopril 2016-01-18 17:36:00 Yes 2 0 mg, PO, Daily, 0 Refill(s) [facility] NuvaRing 2016-01-18 17:35:00 Yes 1 ea, VAG, q4wk, 0 Refill(s) [facility] Amlodipine Besylate 10 Mg Tablet Amlodipine Besylate 10 Mg Tablet Yes 10 Bedtime [facility] Liraglutide (Victoza 2-Garth) 0.6 Mg/0.1 Ml Pen.injctr L iraglutide (Victoza 2-Garth) 0.6 Mg/0.1 Ml Pen.injctr Yes Daily [facility] Metformin Hcl 500 Mg Tablet Metformin Hcl 500 Mg Tablet Yes 1000 Daily [facility] Olmesartan Medoxomil (Benicar) 20 Mg Tablet Olmesartan Medoxomil (Benicar) 20 Mg Tablet Yes 5 Bedtime [facility] Spironolactone 25 Mg Tablet Spironolactone 25 Mg Tablet Yes 25 Bedtime [facility] Acetaminophen With Codeine (Tylenol With Codeine #3 Tablet) 1 Each Tablet, 300 Mg Oral Acetaminophen With Codeine (Tylenol With Codeine #3 Tablet) 1 Each Tablet, 300 Mg Oral 2018-10-16 00:00:00 No 300 Every 4 Hours for Pain [facility] Doxycycline Hyclate 100 Mg Capsule, 100 Mg Oral Doxycy ontiveros Hyclate 100 Mg Capsule, 100 Mg Oral 2018-10-16 00:00:00 No 100 Twi ce A Day [facility] Lisinopril (Prinavil / Zestril) 20 Mg Tablet, 20 Mg Or al Lisinopril (Prinavil / Zestril) 20 Mg Tablet, 20 Mg Oral 2018-10-16 00:00:00 No 20 Daily [facility] Losartan Potassium 100 Mg Tablet, 100 Mg Oral Losartan Potassium 100 Mg Tablet, 100 Mg Oral 2018-10-16 00:00:00 No 100 Daily [facility] Trimethoprim/Sulfamethoxazole (Bactrim Ds) 1 Ea Tab, 1 Ea G Tube Trimethoprim/Sulfamethoxazole (Bactrim Ds) 1 Ea Tab, 1 Ea G Tube 2018-01-16 00:00:00 No 1 Daily [facility] Vital Signs Vital Name Observation Time Observation Value Comments Source Weight 2016-02-09 19:45:00 [facility] [place] Height 2016-02-09 19:45:00 [facility] [place] Temperature Oral (F) 2016-02-09 19:45:00 98.0 F [facility] [place] Heart Rate 2016-02-09 19:45:00 [facility] [place] Diastolic (mm Hg) 2016-02-09 19:45:00 [facility] [place] Systolic (mm Hg) 2016-02-09 19:45:00 Leobardo rial [place] Systolic (mm Hg) 2016-01-21 19:37:00 Leobardo rial [place] Diastolic (mm Hg) 2016-01-21 19:37:00 Mem o[facility] [place] Heart Rate 2016-01-21 19:37:00 [facility] [place] Respitory Rate 2016-01-21 19:37:00 Memori al [place] Temperature Oral (F) 2016-01-21 19:37:00 98.6 F [facility] [place] Respitory Rate 2016-01-21 16:59:00 Memori al [place] Systolic (mm Hg) 2016-01-21 16:59:00 Leobardo rial [place] Diastolic (mm Hg) 2016-01-21 16:59:00 Mem orial [place] Heart Rate 2016-01-21 16:59:00 [facility] [place] Temperature Oral (F) 2016-01-21 16:59:00 98.2 F [facility] [place] Temperature Oral (F) 2016-01-21 12:43:00 98.0 F [facility] [place] Heart Rate 2016-01-21 12:43:00 [facility] [place] Respitory Rate 2016-01-21 12:43:00 Memori al [place] Systolic (mm Hg) 2016-01-21 12:43:00 Leobardo rial [place] Diastolic (mm Hg) 2016-01-21 12:43:00 Mem orial [place] Height 2016-01-18 21:14:00 170.18 cm [facility] [place] Weight 2016-01-18 20:14:00 [facility] [place] Procedures Procedure Date / Time Performed Performing Clinician Musa grimaldo DRAINAGE OF LEFT BREAST, OPEN APPROACH 2018-01-18 00:00:00 GIACOMO GARCIA [facility] EXCISION OF LEFT BREAST, EXTERNAL APPROACH 2018-01-18 00:00: 00 GIACOMO LIEBERMAN [facility] EXCISION OF LEFT BREAST, OPEN APPROACH 2018-01-18 00:00:00 GIACOMO GARCIA [facility] Ultrasound of left breast 2018-01-16 00:00:00 ANTONIO BLAND [facility] Incision and drainage of abscess (eg, ca rbuncle, suppurative hidradenitis, cutaneous or subcutaneous abscess, cyst, furuncle, or paronychia); complicated or multiple 2016-01-19 15:36:00 [facility] 2003-04-[birth year] 00:00:00 [facility] Encounters Start Date/Time End Date/Time Encounter Type Admission Type [facility] Care Department Encounter ID Source 2018-10-18 17:37:00 2018-10-18 19:13:00 Departed Emergency Room 1 WES SIMMONS [facility] [id number] [facility] 2018-01-16 17:18:00 2018-01-20 17:35:00 Discharged Inpatient 1 JOSE MANUEL [facility] [id number] [facility] 2016-02-09 13:45:00 2016-02-09 13:45:00 Outpatient [facility] [id number] [employer] 2016-01-18 12:05:00 2016-01-21 18:26:00 Outpatient Grace Cheng [facility] [id number] Results Test Description Test Time Test Comments Results Result Comments Source CT ABDOMEN/PELVIS W 2018-10-30 12:55:00 [place] [address] Patient Name: SUSAN GARCIA MR #: [id number] : 1985 Age/Sex: 32/F Req #: [id number] Adm Physician: Ordered by: DIAN KENNEDY MD Report #: [id number] Location: CT Room/Bed: Procedure: [id number] CT/CT ABDOMEN/PELVIS W Exam Date: 10/30/18 Exam Time: 1120 REPORT STATUS: Signed EXAM: CT Abdomen and Pelvis WITH intravenous contrast INDICATION: Abdominal pain, diarrhea COMPARISON: CT abdomen pelvis of 10/18/2018 TECHNIQUE: Abdomen and pelvis were scanned utilizing a multidetector helical scanner from the lung base to the pubic symphysis after administration of IV contrast. Coronal and sagittal reformations were obtained. Routine protocol was performed. Scan was performed when during portal venous phase. IV CONTRAST: 100mL of Isovue 370 ORAL CONTRAST: Gastrografin COMPLICATIONS: None RADIATION DOSE: Total DLP: 852.2 mGy*cm Dose modulation, iterative reconstruction, and/or weight based adjustment of the mA/kV was utilized to reduce the radiation dose to as low as reasonably achievable. FINDINGS: LOWER THORAX: Normal. HEPATOBILIARY: No focal hepatic lesions. No biliary ductal dilatation. The gallbladder appears unremarkable. SPLEEN: No splenomegaly. PANCREAS: No focal masses or ductal dilatation. ADRENALS: No adrenal nodules. KIDNEYS/URETERS: No hydronephrosis, stones, or solid mass lesions. PELVIC ORGANS/BLADDER: Unremarkable. PERITONEUM / RETROPERITONEUM: No free air or fluid. LYMPH NODES: No lymphadenopathy. VES SELS: Unremarkable. GI TRACT: No distention or wall thickening. BONES AND SOFT TISSUES: Unremarkable. IMPRESSION: No acute findings in the abdomen or pelvis. Signed by: Isaac Cast MD on 10/30/2018 12:59 PM Dictated By: ISAAC CAST MD 1253 Transcribed By: TRANG on 10/30/18 1253 COPY TO: DIAN KENNEDY MD CT ABD/PEL WO CONTRAST-HOPD 2018-10-18 18:32:00 [place] [address] [place] [address] Patient Name: SUSAN GARCIA MR #: [id number] : 1985 Age/Sex: 32/F Req #: [id number] Adm Physician: Ordered by: WES SIMMONS MD Report #: [id number] Location: [facility] BEDS AT [facility] Room/Bed: Procedure: [id number] HOPD/CT ABD/PEL WO CONTRAST-HOPD Exam Date: 10/18/18 Exam Time: 1818 REPORT STATUS: Signed EXAM: CT Abdomen and Pelvis WITHOUT contrast INDICATION: Left flank pain. Vomiting. COMPARISON: None. TECHNIQUE: Abdomen and pelvis were scanned utilizing a multidetector helical scanner from the lung base to the pubic symphysis without administration of IV contrast. Absence of intravenous contrast decreases sensitivity for detection of focal lesions and vascular pathology. Coronal and sagittal reformations were obtained. Routine protocol was performed. IV CONTRAST: None ORAL CONTRAST: Water COMPLICATIONS: None RADIATION DOSE: Total DLP: 799 mGy*cm Estimated effective dose: (DLP x 0.015 x size factor) mSv CTDIvol has been reviewed. It is below the limits set by the Radiation Protocol Committee (RPC). Dose modulation, iterative reconstruction, and/or weight based adjustment of the mA/kV was utilized to reduce the radiation dose to as low as reasonably achievable. FINDINGS: LINES and TUBES: None. LOWER THORAX: Unremarkable HEPATOBILIARY: No focal hepatic lesions. No biliary ductal dilation. GALLBLADDER: No radio-opaque stones or sludge. No wall thickening. SPLEEN: No splenomegaly. PANCREAS: No focal mass es or ductal dilatation. ADRENALS: No adrenal nodules KIDNEYS/URETERS: No hydronephrosis. No cystic or solid mass lesions. No stones. GI TRACT: No abnormal distention, wall thickening, or evidence of bowel obstruction. The appendix is not clearly seen however, no inflammatory changes are seen in the right lower quadrant of the abdomen. PELVIC ORGANS/BLADDER: Unremarkable. LYMPH NODES: No lymphadenopathy. VESSELS: Unremarkable. PERITONEUM / RETROPERITONEUM: No free air or fluid. BONES: Unremarkable. SOFT TISSUES: Unremarkable. IMPRESSION: 1. No urinary tract calcifications are seen. There is no hydronephrosis, hydroureter or perinephric fat stranding. Signed by: Dr. Elsy Alvarez M.D. on 10/18/2018 6:40 PM Dictated By: ELSY ALVAREZ MD, MD 39 Transcribed By: TRANG on 10/18/181839 COPY TO: WES SIMMONS MD Blood Culture 2018-01-21 16:12:00 Test Item Blood Culture (test code = 57034877) NO GROWTH AFTER 5 DAYS, FINAL REPORT [facility] Xgzrovo3427-92-09 11:43:00* Test Item Value Reference Range Interpretation Comments Bedside Glucose (test code = 24607-8) 95 70-120 Meter ID: [id number] [facility] Clinicodium Level 2018-01-20 06:50:00* Test Item Value Reference Range Interpretation Comments Sodium Level (test code = 2951-2) 144 136-145 [facility]assium Mibpr3390-94-76 06:50:00* Test Item Value Reference Range Interpretation Comments Potassium Level (test code = 2823-3) 4.3 3.5-5.1 [facility] CampusChloride Jiuea1170-18-26 06:50:00* Test Item Value Reference Range Interpretation Comments Chloride Level (test code = 2075-0) 108 98-107 H [facility] CampusCarbon Dioxide Goqms6456-13-29 06:50:00* Test Item Value Reference Range Interpretation Comments Carbon Dioxide Level (test code = 2028-9) 24 22-29 [facility] CampusAnion Ywa6782-72-32 06:50:00* Test Item Value Reference Range Interpretation Comments Anion Gap (test code = 82363-2) 16.3 8-16 H [facility] CampusBlood Urea Jfoddwvr5900-74-10 06:50:00* Test Item Value Reference Range Interpretation Comments Blood Urea Nitrogen (test code = 3094-0) 16 7-26 [facility] CampusCreatinine2018-10-21 06:50:00* Test Item Value Reference Range Interpretation Comments Creatinine (test code = 2160-0) 1.04 0.57-1.11 [facility] CampusBUN/Creatinine Qcsfu5732-07-41 06:50:00* Test Item Value Reference Range Interpretation Comments BUN/Creatinine Ratio (test code = 3097-3) 15 - [facility] CampusEstimat Glomerular Filtration Rate 2018-01-20 06:50:00* Test Item Value Reference Range Interpretation Comments Estimat Glomerular Filtration Rate (test code = 717304678) > 60 >60 Ranges were taken from the National Kidney Disease Education Program and the [facility] Kidney Foundation literature.Reference ranges:60 or greater: Qerisw77-44 ( for 3 consecutive months): Chronic kidney disease 15 or less: Kidney failureThe Hospitals of Providence Memorial CampusGlucose Prqhe7054-71-23 06:50:00* Test Item Value Reference Range Interpretation Comments Glucose Level (test code = JPI9957) 96 74-118 [facility] CampusCalcium Ljpiu8982-69-38 06:50:00* Test Item Value Reference Range Interpretation Comments Calcium Level (test code = 15015-8) 9.4 8.4-10.2 [facility] CampusVancomycin Level Sfnpys4419-01-11 06:00:00* Test Item Value Reference Range Interpretation Comments Vancomycin Level Trough (test code = 4092-3) 6.6 5.0-10.0 [facility] CampusWhite Blood Rlwmt2676-51-76 05:40:00* Test Item Value Reference Range Interpretation Comments White Blood Count (test code = 6690-2) 7.49 4.8-10.8 [facility] CampusRed Blood Tglyz1242-99-23 05:40:00* Test Item Value Reference Range Interpretation Comments Red Blood Count (test code = 789-8) 4.06 3.6-5.1 [facility] CampusHemoglobin2018-10-21 05:40:00* Test Item Value Reference Range Interpretation Comments Hemoglobin (test code = 84035-3) 9.8 12.0-16.0 L [facility] CampusHematocrit2018-10-21 05:40:00* Test Item Value Reference Range Interpretation Comments Hematocrit (test code = 4544-3) 34.9 34.2-44.1 [facility] CampusMean Corpuscular Uisdis2855-28-88 05:40:00* Test Item Value Reference Range Interpretation Comments Mean Corpuscular Volume (test code = 787-2) 86.0 81-99 REVIEWEDThe Hospitals of Providence Memorial CampusMean Corpuscular Hemoglobin 2018-01-20 05:40:00* Test Item Value Reference Range Interpretation Comments Mean Corpuscular Hemoglobin (test code = 785-6) 24.1 28-32 L [facility] Corp[facility] Hemoglobin Concent 2018-01-20 05:40:00* Test Item Value Reference Range Interpretation Comments Mean Corpuscular Hemoglobin Concent (test code = 786-4) 28.1 31-35 L [facility] CampusRed Cell Distribution Fmtcr8945-25-54 05:40:00* Test Item Value Reference Range Interpretation Comments Red Cell Distribution Width (test code = 62716-1) 14.6 11.7 -14.4 H [facility] CampusPlatelet Iudgr4661-00-41 05:40:00* Test Item Value Reference Range Interpretation Comments Platelet Count (test code = 777-3) 309 140-360 [facility] CampusNeutrophils (%) (Auto)2018-01-20 05:40:00 * Test Item Value Reference Range Interpretation Comments Neutrophils (%) (Auto) (test code = 10480-6) 45.9 38.7-80.0 [facility] CampusLymphocytes (%) (Auto)2018-01-20 05:40:00 * Test Item Value Reference Range Interpretation Comments Lymphocytes (%) (Auto) (test code = 736-9) 41.8 18.0-39.1 H [facility] CampusMonocytes (%) (Auto)2018-01-20 05:40:00* Test Item Value Reference Range Interpretation Comments Monocytes (%) (Auto) (test code = 5905-5) 9.7 4.4-11.3 [facility] CampusEosinophils (%) (Auto)2018-01-20 05:40:00 * Test Item Value Reference Range Interpretation Comments Eosinophils (%) (Auto) (test code = 713-8) 1.6 0.0-6.0 [facility] CampusBasophils (%) (Auto)2018-01-20 05:40:00* Test Item Value Reference Range Interpretation Comments Basophils (%) (Auto) (test code = 706-2) 0.7 0.0-1.0 [facility] CampusIM GRANULOCYTES %2018-01-20 05:40:00* Test Item Value Reference Range Interpretation Comments IM GRANULOCYTES % (test code = IM GRANULOCYTES %) 0.3 0.0- 1.0 [facility] CampusNeutrophils # (Auto)2018-01-20 05:40:00* Test Item Value Reference Range Interpretation Comments Neutrophils # (Auto) (test code = 751-8) 3.4 2.1-6.9 [facility] CampusLymphocytes # (Auto)2018-01-20 05:40:00* Test Item Value Reference Range Interpretation Comments Lymphocytes # (Auto) (test code = 07514-5) 3.1 1.0-3.2 [facility] CampusMonocytes # (Auto)2018-01-20 05:40:00* Test Item Value Reference Range Interpretation Comments Monocytes # (Auto) (test code = 742-7) 0.7 0.2-0.8 [facility] CampusEosinophils # (Auto)2018-01-20 05:40:00* Test Item Value Reference Range Interpretation Comments Eosinophils # (Auto) (test code = 711-2) 0.1 0.0-0.4 [facility] CampusBasophils # (Auto)2018-01-20 05:40:00* Test Item Value Reference Range Interpretation Comments Basophils # (Auto) (test code = 704-7) 0.1 0.0-0.1 [facility] CampusAbsolute Immature Granulocyte (auto 2018-01-20 05:40:00* Test Item Value Reference Range Interpretation Comments Absolute Immature Granulocyte (auto (katherine t code = Absolute Immature Granulocyte (auto) 0.02 0-0.1 [facility]To[facility] Iopmhxnxv9682-59-71 08:32:00* Test Item Value Reference Range Interpretation Comments Total Bilirubin (test code = 1975-2) 0.5 0.2-1.2 [facility] CampusAspartate Amino Transf (AST/SGOT) 2018-01-17 08:32:00* Test Item Value Reference Range Interpretation Comments Aspartate Amino Transf (AST/SGOT) (test code = Aspartate Amino Transf (AST/SGOT)) 12 5-34 [facility] CampusAlanine Aminotransferase (ALT/SGPT) 2018-01-17 08:32:00* Test Item Value Reference Range Interpretation Comments Alanine Aminotransferase (ALT/SGPT) (test code = 1742-6) 11 0-55 [facility] CampusTotal Rovulws9686-15-97 08:32:00* Test Item Value Reference Range Interpretation Comments Total Protein (test code = 2885-2) 7.1 6.5-8.1 [facility] CampusAlbumin2018-10-18 08:32:00* Test Item Value Reference Range Interpretation Comments Albumin (test code = 1751-7) 3.1 3.5-5.0 L [facility] CampusGlobulin2018-10-18 08:32:00* Test Item Value Reference Range Interpretation Comments Globulin (test code = 59590-7) 4.0 2.3-3.5 H [facility] CampusAlbumin/Globulin Baxiw5748-21-37 08:32:00 * Test Item Value Reference Range Interpretation Comments Albumin/Globulin Ratio (test code = 1759-0) 0.8 0.8-2.0 [facility] CampusAlkaline Nzerislawhf8590-46-93 08:32:00* Test Item Value Reference Range Interpretation Comments Alkaline Phosphatase (test code = 6768-6) 73 40-150 [facility] CampusUS BREAST COMPLETE AIKC1492-94-01 18:22:00 [facility] [address] [address] Patient Name: SUSAN GARCIA MR #: [id number] : 1985 Age/Sex: 32/F Req #: [id number] Adm Physician: JOSE MANUEL EDDY MD Ordered by: ANTONIO BLAND MD Report #: [id number] Location: [facility] Room/Bed: [place] [address] Procedure: [id number] US /US BREAST COMPLETE LEFT Exam Date: 01/16/18 Exam Ti me: [id number] REPORT STATUS: Signed E XAM: US BREAST COMPLETE LEFT INDICATION: Breast cellulitis/abscess. Left lavern ast pain starting Sunday Breast Cellulitis/Abscess COMPARISON: None SIMONA HNIQUE: Transverse and sagittal images were performed of the left breast. A ra diologist was not present at the time of scanning. FINDINGS: A 4.6 x 1.4 x 3.4 cm complex collection with anechoic fluid and internal echoes is seen at the 8:00 position, 7 cm from the nipple. There is soft tissue edema and skin thickening of the regional soft tissues. IMPRESSION: Complex fluid collection in the left breast with surrounding soft tissue edema likely repres enting an abscess. Note: Ultrasound is not a screening modality for the b reast. It is used to determine whether palpable or mammographically demonstrat able mass is cystic or solid. Some solid breast masses are isoechoic with the remainder of the tissue and cannot be detected sonographically. Signed by : DR. Hitesh Alejo MD on 01/16/2018 6:28 PM Dictated By: HITESH ALEJO MD 27 Transcribed By: TRANG on 01/16/181827 COPY TO: ANTONIO BLAND MD Triglycerides Gpeze8382-15-81 16:53:00* Test Item Value Reference Range Interpretation Comments Triglycerides Level (test code = 2571-8) 51 0-149 [facility] CampusCholesterol Mooam5141-41-44 16:53:00* Test Item Value Reference Range Interpretation Comments Cholesterol Level (test code = 2093-3) 126 0-199 Less than 200 mg/dL Low Geoi485 - 239 mg/dL Borderline Hkzw761 m g/dl and greater High Risk [facility] CampusLDL Cygxjviaiqs7831-23-70 16:53:00* Test Item Value Reference Range Interpretation Comments LDL Cholesterol (test code = 2089-1) 64 60-130 [facility] CampusHDL Ksbhgzkkwur5029-11-01 16:53:00* Test Item Value Reference Range Interpretation Comments HDL Cholesterol (test code = 2085-9) 52 40-60 [facility] CampusCholesterol/HDL Zttwh9772-66-64 16:53:00 * Test Item Value Reference Range Interpretation Comments Cholesterol/HDL Ratio (test code = 9830-1) 2.4 3.0-3.6 L [facility] CampusHemoglobin A1c Sknwhtu5341-38-53 16:36:00 * Test Item Value Reference Range Interpretation Comments Hemoglobin A1c Percent (test code = Hemoglobin A1c Percent) 6.3 4.0-7.0 [facility] CampusHuman Chorionic Gonadotropin, Qual 2018-01-16 16:35:00* Test Item Value Reference Range Interpretation Comments Human Chorionic Gonadotropin, Qual (test code = 2118-8) NEGATIVE NEGATIVE [facility] CampusELECTROLYTES2016-10-21 09:41:0012.3 [facility] YtzhrlaCGUFIAVJKUXR9785-54-87 09:41:0098[facility] HermannELECTROLYTES 2016-01-21 09:41:007[facility] FowvwpdSYDRVGMFRPKM6788-86-48 09:41:03828Qeedwuls PbamlomLMJLERWJPECC0967-49-69 09:41:0026[facility] IdgpwzaHSWXCKUFBLPT2685-44-29 09:41:63379Kolzzcbf OlxlrvpLVUHKOMSFISR7050-69-72 09:41:004.3[facility] OIYOHCRTVQTD2795-79-38 09:41:000.67[facility] CchgqabGHBLQXANXVZQ2850-47-57 09:41:08520Xjyohnll HhpbeqgTSVPGDCRXQDH8682-63-03 09:41:008.4[facility] SHLDPDPEZH8771-46-22 09:41:0014.4[facility] OvnmtinWNOODWXSQV4730-32-47 09:41:00 7.3[facility] AxiorpoDMMTXSWMBV0072-39-83 09:41:64064Czsxszzs HermannHEMATOLOGY 2016-01-21 09:41:004.24[facility] MvebbfbLWITQCFQWO3910-09-34 09:41:009.6[facility] MhzuavoJAMBEUTQJN7039-33-29 09:41:0072.4[facility] QbotnqpCTUXFRIBLT9894-79-67 09:41:0031.4[facility] BwgfuqnBDCWEMDAYT6922-08-12 09:41:0030.7[facility] CPOKZAHFRZ5612-20-00 09:41:009.6[facility] EzlrclpNHMBUZIVPD1816-20-75 09:41:00* Test Item Value Reference Range Interpretation Comments MCH (test code = MCH) 22.8 pg 27.0-31.0 [facility] BczpfwsFGRWFHXXUX8356-47-64 09:41:000.5[facility] HermannHEMATOLOGY 2016-01-21 09:41:001.0[facility] OwgdjibGTUEFPTYBK0387-20-51 09:41:001+ *ABN*(01/21/16 4:41 AM)[facility] JaogdrsOJKVOFPQWJ4876-77-83 09:41:002.8[facility] IvwryvqMIMWPTBYXC2618-79-42 09:41:000.1[facility] FeudppkWJGAQBROFW0343-67-82 09:41:0053.9[facility] RbdfemfUZQZUMSGBI0344-91-07 09:41:0010.5[facility] KKZLMGGPMO6280-30-00 09:41:005.2[facility] AjypymuIHNDZNXGPB7970-35-72 09:41:000.9 [facility] XgwzlyhRLEINMARZK5788-06-66 09:41:0029.1[facility] HermannHEMATOLOGY 2016-01-21 09:41:005.6[facility] WjhfhitEBODDPQGPAXR6365-39-64 12:07:0011.0 [facility] PdxhbywBSIPVCLPRLNG9309-67-36 12:07:62524Jpmlkggn HermannELECTROLYTES 2016-01-20 12:07:004.0[facility] YkipzuxPRAHCLBBIMZR8366-91-35 12:07:49415Vfbovfel NdicawnAMOJYXXQOJVC9395-26-63 12:07:0026[facility] VtsvraiTOUHEVDZNAWJ9144-17-24 12:07:008.7[facility] ZftcefxSWKQYJHGFAIT8679-53-41 12:07:23762Usgyzido [facility] SWWTAHGIORLY5763-57-72 12:07:000.78[facility] VnemcosVHPWFUIHKZZG6926-64-77 12:07:008[facility] TbftqviKFBXJECPWGSJ6201-22-39 12:07:0093[facility] CYONENTUDW3500-13-63 12:07:004.24[facility] OgeuzckYCFWILMWDV9301-02-91 12:07:00 14.3[facility] MszvadkBQHLBRBDLK2055-92-08 12:07:96648Emvbzavg HermannHEMATOLOGY 2016-01-20 12:07:007.7[facility] KgjpzwuRAPNFPMDFC1720-90-67 12:07:0010.1[facility] IwyqtmcBPFRUMRYRY0932-48-68 12:07:0030.9[facility] EgkwliiWCWQNDWPBK3010-61-49 12:07:0072.9[facility] SvsrikeXUJFWTDVEK6935-27-61 12:07:00* Test Item Value Reference Range Interpretation Comments MCH (test code = MCH) 23.7 pg 27.0-31.0 [facility] LogafgnBFSZFLSSVZ0025-11-98 12:07:0032.5[facility] HermannHEMATOLOGY 2016-01-20 12:07:009.7[facility] SzofxhnBIDJCUENVD9874-92-43 12:07:0028.5[facility] NklbrciQGUEQFDOGP0073-29-02 12:07:009.5[facility] GozhkjqXZVCMDVGEW2290-57-10 12:07:005.8[facility] ZgnrbzmKWTQFXWQRP9464-14-88 12:07:000.9[facility] UHAUPAZRCI4247-34-69 12:07:000.6[facility] SxezrlaNDBZLVOWWY7311-26-03 12:07:000.1 [facility] ZyevsxxQFYVNYJDZI0496-84-99 12:07:000.7[facility] HermannHEMATOLOGY 2016-01-20 12:07:005.4[facility] BbpsgrbRSZYPWLSZW0175-81-10 12:07:002.8[facility] TyusoqxMRDFCBPJDK9583-24-52 12:07:001+ *ABN*(01/20/16 7:07 AM)[facility] HAWYIMQLSO0992-55-62 12:07:0055.5[facility] HermannURINE WUHD2808-85-73 11:57:00 Negative (01/19/16 6:57 AM)[facility]annURINE AND LEFYI4582-23-81 23:04:001 [facility]ann[facility] AND OSKNS0466-16-10 23:04:00Negative (01/18/16 6:04 PM) [facility] AZWQZ1645-65-95 23:04:002[facility]annUR[facility] AND AGXOC6094-11-83 23:04:001.025[facility]annURINE AND TLBLO4749-40-66 23:04:00 Clear (01/18/16 6:04 PM)[facility] AND EZMKF6083-82-85 23:04:005.0 [facility] AND BTSAS9931-55-65 23:04:00Negative *NA*(01/18/16 6:04 PM)[facility] AND QFIVI0411-79-18 23:04:00Negative (01/18/16 6:04 PM) [facility] FBKFL3658-36-58 23:04:002.0[facility]annUR[facility] AND CBWPF8293-52-07 23:04:00Negative (01/18/16 6:04 PM)[facility] HermannHEMATOLOGY 2016-01-18 20:44:21* Test Item Value Reference Range Interpretation Comments PTT (test code = PTT) 32.3 s 22.9-35.8 [facility] GnwauhiJFJVTAULWQ8672-40-42 20:44:21* Test Item Value Reference Range Interpretation Comments PT (test code = PT) 15.2 s 12.0-14.7 [facility] AcgmispSJTHGBSVJU8748-03-39 20:44:211.18[facility] HermannCHEM PANEL 2016-01-18 19:49:571.8[facility] HermannCHEM SPZHD2309-72-93 19:49:18377Gbkfyvsq HermannCHEM ARBUR9167-83-36 19:49:5793[facility] HermannCHEM FJOEB5046-80-53 19:49:570.4[facility] HermannCHEM LIOGO8544-60-83 19:49:573.0[facility] HermannCHEM EHOVC7684-50-22 19:49:5719[facility] HermannCHEM FIJMV7738-80-09 19:49:5718 [facility] HermannCHEM YIZCN6282-62-67 19:49:579.0[facility] HermannCHEM PANEL 2016-01-18 19:49:578.2[facility] HermannCHEM RJROE0937-10-85 19:49:74495[place] HermannCHEM KJVED6019-47-56 19:49:573.4[facility] HermannCHEM WAMVN5742-89-68 19:49:86426Vuuijfxt HermannCHEM EFGMH5632-86-27 19:49:5722[facility] HermannCHEM FHVHB2541-41-25 19:49:576[facility] HermannCHEM CAHCW9464-73-59 19:49:570.72 [facility] HermannCHEM QFWWZ9771-44-93 19:49:94915Rdptvmzm HermannCHEM PANEL 2016-01-18 19:49:570.6[facility] HermannCHEM GAQMS8522-45-03 19:49:578[facility] HermannCHEM NFQWE1280-86-87 19:49:575.2[facility] HermannCHEM BWNKB9562-33-28 19:49:5714.4[facility] HermannCHEM DAIFK1444-75-72 19:49:573.1[facility] YDBKLHNHVP2309-47-73 19:49:5772.7[facility] ObknjtlEMIDQZPBYA1672-96-84 19:49:57 30.9[facility] SldzzenZGIWZALXQG8460-38-49 19:49:579.6[facility] HermannHEMATOLOGY 2016-01-18 19:49:574.26[facility] EheokalMVQZOKJQVC1954-65-27 19:49:57* Test Item Value Reference Range Interpretation Comments MCH (test code = MCH) 22.6 pg 27.0-31.0 [facility] GwlalsgCVFUSTVVFL3234-27-81 19:49:5719.1[facility] HermannHEMATOLOGY 2016-01-18 19:49:5731.1[facility] KovkoetQRDVVKGNKO7352-86-27 19:49:5714.1[facility] CrperdaOROQJIMNBV1799-65-17 19:49:69487Lbtnalor CxyywwvAXXKRTZBPG4513-58-09 19:49:577.9[facility] DwgpdjqLEOFNVNGKV5883-90-46 19:49:572.7[facility] QTHHGEUCUI5143-87-15 19:49:570.2[facility] WgfluygPUPSZQLPDX6885-34-75 19:49:570.1 [facility] RcaqlouQXDKDBZQXR0957-22-23 19:49:571+ *ABN*(01/18/16 2:49 PM)[facility] IwoazdwHBMMGXUFRK9360-36-48 19:49:572.1[facility] NgtlxeyZDYHECZSYW2457-35-34 19:49:571.2[facility] BngoymsIOFWKNUHFB5267-27-61 19:49:570.5[facility] HTBAWOJRPD1542-74-57 19:49:5713.9[facility] UjqhjsuBNUUTVMXBP0967-07-11 19:49:57 14.3[facility] RqstznmITQICMPUCZ9734-35-27 19:49:5772.9[facility] HermannHEMATOLOGY 2016-01-18 19:49:5711.1[facility] DrbaheeXPCEAYZJPW8240-41-17 19:49:574[facility] QkggkgfVTFTSZLHAZ1350-81-21 19:49:86523.0[facility] HermannSPECIAL CHEMISTRY 2016-01-18 19:49:577.6[facility]
--- NOTE | 2019-11-03 13:32 | Emergency Department Note ---
History of Present Illnes History of Present Illness Chief Complaint: right breast pain swelling/redness History of Present Illness This is a 33 year old female. was doing well prior to this. + same symptoms as dx past cellulitis Historian: Patient Arrival Mode: Car History limited by: condition of the patient Regional Program Manager Required: No Onset (how long ago): week(s) (1) Location: sharp Quality: sharp Radiation: Reports non-radiation Severity: severe Timing of current episode: constant Progression: worsening Chronicity: new Context: Denies recent illness, Denies recent surgery, Denies recent immobilization, Denies recent travel, Denies new medications Relieving factors: none Exacerbating factors: movement Associated symptoms: Reports rash Treatments prior to arrival: none Past Medical/Family History Physician Review I have reviewed the patient's past medical and family history. Any updates have been documented here. Past Medical History Recent Fever: No Clinical Suspicion of Infectio: No New/Unexplained Change in Ment: No Past Medical History: Hypertension, Diabetes Other Medical History: Hidradenitis PCOS Dawn Palsy Polynidal abscess Past Surgical History: None Other Surgery: Polynidal abscess x2. LEAP procedure Social History Smoking Cessation: Never Smoker Alcohol Use: None Any Illegal Drug Use: No Other Last Tetanus: UTD Any Pre-Existing Lines (PICC,: No Review of Systems Review of Systems Constitutional: Reports no symptoms EENTM: Reports no symptoms Cardiovascular: Reports no symptoms Respiratory: Reports no symptoms Gastrointestinal: Reports no symptoms Genitourinary: Reports no symptoms Musculoskeletal: Reports no symptoms Integumentary: Reports as per HPI, Reports change in color, Reports rash Neurological: Reports no symptoms Psychological: Reports no symptoms Endocrine: Reports no symptoms Hematological/Lymphatic: Reports no symptoms Review of other systems: All other systems negative Physical Exam Related Data Allergies: Coded Allergies: Penicillins (Verified Allergy, Unknown, 01/16/18) lisinopril (Verified Allergy, Unknown, HIVES, 10/16/18) Triage Vital Signs Vital Signs Date Time Temp Pulse Resp B/P (MAP) Pulse Ox O2 Delivery O2 Flow Rate FiO2 11/03/19 10:57 98.2 127 16 178/87 99 Room Air Physical Exam CONSTITUTIONAL Constitutional: Present well-developed, Present well-nourished HENT HENT: Present normocephalic, Present atraumatic, Present oropharynx clear/moist, Present nose normal HENT L/R: Present left ext ear normal, Present right ext ear normal EYES Eyes: Reports PERRL, Reports conjunctivae normal NECK Neck: Present ROM normal, Present supple PULMONARY Pulmonary: Present effort normal, Present breath sounds normal CARDIOVASCULAR Cardiovascular: Present regular rhythm, Present heart sounds normal, Present capillary refill normal, Present normal rate GASTROINTESTINAL Abdominal: Present soft, Present nontender, Present bowel sounds normal GENITOURINARY Genitourinary: Present exam deferred SKIN Skin: Present warm, Present erythema (maculopapular erythematous blanching 15cm diameter tender flucuent mass), Present rash MUSCULOSKELETAL Musculoskeletal: Present ROM normal NEUROLOGICAL Neurological: Present alert, Present oriented x 3, Present no gross motor or sensory deficits PSYCHOLOGICAL Psychological: Present mood/affect normal, Present judgement normal Results Laboratory Result Diagram: 11/03/19 1134 Laboratory Laboratory Tests Test 11/03/19 11:34 White Blood Count 16.44 x10e3/uL (4.8-10.8) Red Blood Count 4.79 x10e6/uL (3.6-5.1) Hemoglobin 11.3 g/dL (12.0-16.0) Hematocrit 36.9 % (34.2-44.1) Mean Corpuscular Volume 77.0 fL (81-99) Mean Corpuscular Hemoglobin 23.6 pg (28-32) Mean Corpuscular Hemoglobin Concent 30.6 g/dL (31-35) Red Cell Distribution Width 13.5 % (11.7-14.4) Platelet Count 459 x10e3/uL (140-360) Neutrophils (%) (Auto) 76.8 % (38.7-80.0) Lymphocytes (%) (Auto) 12.3 % (18.0-39.1) Monocytes (%) (Auto) 9.5 % (4.4-11.3) Eosinophils (%) (Auto) 0.5 % (0.0-6.0) Basophils (%) (Auto) 0.3 % (0.0-1.0) Neutrophils # (Auto) 12.6 (2.1-6.9) Lymphocytes # (Auto) 2.0 (1.0-3.2) Monocytes # (Auto) 1.6 (0.2-0.8) Eosinophils # (Auto) 0.1 (0.0-0.4) Basophils # (Auto) 0.1 (0.0-0.1) Absolute Immature Granulocyte (auto 0.10 x10e3/uL (0-0.1) Lab results reviewed: Yes Laboratory comments cmp normal except jmn=[id number] Diagnostics Tests Diagnostic test(s) reviewed: Yes (US rgt breast = abscess ) Critical Care Time Comments spoke to dr. steward at 1330hrs and accepts pt for admission. spoke to dr terry- surgeon at 1450hrs and will see pt Assessment & Plan Medical Decision Making MDM cellulitis/abscess/sepsis Assessment & Plan Final Impression: (1) Cellulitis of right breast (2) Abscess of right breast (3) Sepsis Last Vital Signs Date Time Temp Pulse Resp B/P (MAP) Pulse Ox O2 Delivery O2 Flow Rate FiO2 11/03/19 13:12 97 16 135/60 99 Room Air 11/03/19 10:57 98.2 Home Meds Reported Medications Olmesartan Medoxomil (BENICAR) 20 Mg Tablet, 5 MG PO HS, #30 TAB 10/16/18 Spironolactone (SPIRONOLACTONE) 25 Mg Tablet, 25 MG PO HS, #60 TAB 10/16/18 Amlodipine Besylate (AMLODIPINE BESYLATE) 10 Mg Tablet, 10 MG PO HS, #30 TAB 10/16/18 Metformin Hcl (METFORMIN HCL) 500 Mg Tablet, 1000 MG PO DAILY, #60 TAB 10/16/18 Liraglutide (VICTOZA 2-SHARMILA) 0.6 Mg/0.1 Ml Pen.injctr, MG SC DAILY 01/16/18 Medications in the ED Cefepime HCl 100 ml @ 200 mls/hr ONCE STAT IV Last administered on 11/03/19at 11:51; Admin Dose 200 MLS/HR; Start 11/03/19 at 11:20; Stop 11/03/19 at 12:29; Status DC Vancomycin HCl 250 ml @ 167 mls/hr ONCE STAT IV Last administered on 11/03/19at 13:07; Admin Dose 167 MLS/HR; Start 11/03/19 at 11:20; Stop 11/03/19 at 12:49; Status DC Sodium Chloride 1,000 ml @ 1,000 mls/hr Q1H STAT IV Last administered on 8/3/2 0at 13:08; Admin Dose 1,000 MLS/HR; Start 11/03/19 at 11:28; Stop 11/03/19 at 12:27; Status DC Sodium Chloride 1,000 ml @ 1,000 mls/hr Q1H STAT IV ; Start 11/03/19 at 11:28; Stop 11/03/19 at 12:27; Status DC Cefoxitin Sodium 2 g STK-MED ONCE IV ; Start 11/03/19 at 11:48; Stop 11/03/19 at 11:42; Status DC Sodium Chloride 2,000 ml @ ud STK-MED ONCE .ROUTE ; Start 11/03/19 at 11:49; Stop 11/03/19 at 11:43; Status DC Sodium Chloride 250 ml @ ud STK-MED ONCE .ROUTE ; Start 11/03/19 at 11:49; Stop 11/03/19 at 11:43; Status DC Ketorolac Tromethamine 30 mg ONCE STAT IV Last administered on 11/03/19at 11:51; Admin Dose 30 MG; Start 11/03/19 at 11:46; Stop 11/03/19 at 12:02; Status DC Sodium Chloride 100 ml @ ud STK-MED ONCE .ROUTE ; Start 11/03/19 at 11:52; Stop 11/03/19 at 11:47; Status DC DONATO ESPINOZA Nov 03, 2019 13:32
[2019-11-03] MEDS: VANCOMYCIN 1GM/NS 250 ML 250 ML IV SCH (13:45)
[2019-11-03] MEDS: CEFEPIME 1GM/NS 0.9% 50 ML 50 ML IV SCH (13:45)
[2019-11-03] MEDS ORDERED: ONDANSETRON HCL INJ 2MG/ML 2ML 2 MG/ML VIAL IV PRN ×2 (13:45→23:45)
--- OUTSIDE RECORDS SUMMARY | 2019-11-03 14:13 | XMS REPORT | Continuity of Care Document ---
Author Author [employer] Organization [employer] Address Unknown Phone Unavailable Care Team Providers Care Inventory Administrator Name Role Phone [employer] Information [facility] Unavailable Un available Problems Problem Status Onset [...] [facility] Morbid obesity Active Problem 02/29/2016 [id number] 2568 Abscess of buttock Active Diagnosis 02/29/2016 [id number] 2568 Hyperglycemia due to type 2 diabetes mellitus Active Problem 02/29/2016 [id number] Cellulitis Active Diagnosis 02/29/2016 [id number] PILONIDAL CYST WITH ABSCESS Ac tive [facility] Medications Medication Details Route Status Patient Instructions Ordering Provider Order Date Source Mupirocin 1 application to aff ected area Externally Active 2 % Externally Three times a day Hasan 02/09/2016 [id number] Pneumovax 23 Notes: (Same as: Pneumovax 23) [...] Duration: 30 day, Stop date: 02/18/16 6:46:00 CHIEF ADMINISTRATIVE OFFICER Inactive 01/19/2016 [facility] Sodium Chloride 0.154 MEQ/ML Injectable Solution 500 mL, Rate: 25 ml/hr, Infuse over: 20 hr, Route: IV, Dosing Weight 136.42 kg, Total Volume: 500, Start date: 01/19/16 6:47:00 CDT, Duration: 30 day, Stop date: 02/18/16 6:46:00 CHIEF ADMINISTRATIVE OFFICER Inactive 01/19/2016 [facility] Lisinopril Notes: (Same [...] Duration: 30 day, Stop date: 02/17/16 16:11:00 CHIEF ADMINISTRATIVE OFFICER No Longe r Active 01/18/2016 [facility] heparin sodium, porcine 2500 UNT/ML Injectable Solutio n Notes: porcine heparin No Longer Active 01/18/2016 [facility] Clindamycin 600 mg, 50 mL, Rou te: IVPB, Drug form: INJ, ABXQ8H, kg, Start date: 01/18/16 14:00:00 CDT, Duration: 30 day, Stop date: 02/17/16 6:00:00 CHIEF ADMINISTRATIVE OFFICER No Longer Active 01/18/2016 [facility] Dextrose 50% Syringe 12.5 gm, 25 mL, Route: IVP, Drug Form: INJ, kg, PRN, PRN Blood Glucose Results, Start date: 01/18/16 13:38:00 CDT, Duration: 30 day, Stop date: 02/17/16 12:37:00 CHIEF ADMINISTRATIVE OFFICER No Longer Active 01/18/2016 [facility] Glucagon 1 mg, Route: IM, Drug form: PDR/INJ, PRN, kg, PRN Blood Glucose Results, Start date: 01/18/16 13:38:00 CDT, Duration: 30 day, Stop date: 02/17/16 12:37:00 CHIEF ADMINISTRATIVE OFFICER No Longer Active 01/18/2016 [facility] Insulin, [...] 20 MG Orally Once a day Hasan [id number] Allergies, Adverse Reactions, Alerts Substance Category Reaction Severity Reaction type Status Date Reported Comments Source penicillin Adverse Reaction Info Not Available Adverse Reaction Active 02/09/2016 [id number] 2568 penicillins Assertion Drug allergy Active [facility] Immunizations Immunization Date Given Site Status Last Updated Comments Source pneumococcal 23-valent vaccine 01/21/2016 Left deltoid completed [facility] influenza virus vaccine, inactivated 01/21/2016 Right deltoid completed [facility] Results Order Name Results Value Reference [...] HEMATOLOGY MPV 7.3 7.4 - 10.4 01/21/2016 [facility] Platelet 400 133 - 450 01/21/2016 [facility] RBC 4.24 4.20 - 5.40 01/21/2016 [facility] HEMATOLOGY WBC 9.6 3.7 - 10.4 01/21/2016 [facility] MCV 72.4 80.0 - 98.0 01/21/2016 [facility] MCHC 31.4 32.0 - 36.0 01/21/2016 [facility] Hct 30.7 36.0 - 48.0 01/21/2016 [facility] Hgb 9.6 12.0 - 16.0 01/21/2016 [facility] MCH 22.8 27.0 - 31.0 01/21/2016 [facility] Eosinophils # 0.5 0.0 - 0.5 01/21/2016 [facility] Monocytes # 1.0 0.0 - 0.8 01/21/2016 [facility] Microcyte 1+ *ABN* (01/21/16 4:41 AM) None Seen 01/21/2016 [facility] Lymphocytes # 2.8 1.0 - 5.5 01/21/2016 [facility] Basophils # 0.1 0.0 - 0.2 01/21/2016 [facility] Segs 53.9 45.0 - 75.0 01/21/2016 [facility] Monocytes 10.5 2.0 - [...] Bacteria Occasional /HPF None Seen /HPF 01/18/[address] [facility] [address] URINE AND STOOL UA Color [...] UA Glucose Negative mg/dL Negative mg/dL 01/18/2016 [facility] URINE AND STOOL UA Protein [...] HEMATOLOGY MCHC 31.1 32.0 - 36.0 01/18/2016 [facility] RDW 14.1 11.5 - 14.5 01/18/2016 [facility] HEMATOLOGY Platelet 375 133 - 450 01/18/2016 [facility] HEMATOLOGY MPV 7.9 7.4 - 10.4 01/18/2016 [facility] Lymphocytes # 2.7 1.0 - 5.5 01/18/2016 [facility] HEMATOLOGY Eosinophils # 0.2 0.0 - 0.5 01/18/2016 [facility] HEMATOLOGY Basophils # 0.1 0.0 - 0.2 01/18/2016 [facility] Microcyte 1+ *ABN* (01/18/16 2:49 PM) None Seen 01/18/2016 [facility] Monocytes # 2.1 0.0 - 0.8 01/18/2016 [facility] Eosinophils 1.2 0.0 - 4.0 01/18/2016 [facility] Basophils 0.5 0.0 - 1.0 01/18/2016 [facility] Segs-Bands # 13.9 1.5 - 8.1 01/18/2016 [facility] Lymphocytes 14.3 20.0 - 40.0 01/18/2016 [facility] Segs 72.9 45.0 - 75.0 01/18/2016 [facility] Monocytes 11.1 2.0 - 12.0 01/18/2016 [facility] Sed Rate 4 0 [...] Value Date Comments Source Weight 300 02/09/2016 [id number] 2568 Height 67 1 04/10/2015 [id number] 2568 Temperature Oral (F) 98.0 F 02/09/2016 [id number] Heart Rate 92 02/09/2016 [id number] 2568 Diastolic (mm Hg) 76 02/09/2016 [id number] Systolic (mm Hg) 144 02/09/2016 [id number] Systolic (mm Hg) 130 01/21/2016 [facility] [...] Provider ADM Date DC Date Status Source [facility] Inpatient [id number] Grace Cheng 01/18/2016 01/21/2016 [facility] Outpatient [id number] BAUTISTA EDWARDS 01/19/2016 Active [facility] Outpatient [id number] BAUTISTA EDWARDS 01/31/2016 Active [facility] F/U FROM [facility] 01/21/16 [id number] 02/09/2016 02/09/2016 [id number] 2568 Outpatient [id number] BAUTISTA EDWARDS 02/14/2016 Active [facility] Procedures Procedure Code Date Perfomer Comments Source Incision and drainage of abscess (eg, ca rbuncle, suppurative hidradenitis, cutaneous or subcutaneous abscess, cyst, furuncle, or paronychia); complicated or multiple [id number] 01/19/2016 [facility] [id number] 04/02/2003 [facility] Assessment and Plan Assessment and Plan Date [...] 01/21/16 Pain Intensity NRS (0-10) 0 01/20/16 [facility] Coma Score 15 01/20/16 [facility] Fall Score 4 01/20/16 [place] Score 23 Lines, Tubes, and Drains: 01/19/2016 21:40 Peripheral Lines: Hand Left 20 gauge Over the needle catheter Surgical Procedures: 01/19/16 09:25 I&D GLUTEL ABSCESS [id number] Primary Surgeon: Bautista Edwadrs MD (Service: GEN) I/O Intake Output Balance [...] . Status: No Feb 09, 2016 02/09/2016 [id number] Social History TypeResponse Substance Abuse Use: None. [...]
--- OUTSIDE RECORDS SUMMARY | 2019-11-03 14:13 | XMS REPORT | Continuity of Care Document ---
Author Author [facility] t Organization [facility] Address [address] [place] [address] Phone Unavailable Care Team Providers Care Supervisor Bit And Shank Department Name Role Phone NO, PCP PCP Unavailable DIAN KENNEDY Attphys Unavailable LEVONETHWES MCFARLANE Attphys Unavailable JOSE MANUEL EDDY Attphys Unavailable Grace Cheng Attphys JOSE MANUEL EDDY Admphys Unavailable SkylarGrace Admphys Payers Payer Name Policy Type Policy Number Effective Date Expiration Date S dez [employer] [facility] [id number] 2018 00:00:00 [facility] Problems Condition Name Condition Details Condition Category Status Onset Date Resolution Date Last Treatment Date Treating Clinician Comments Source BILATERAL PILONIDAL ABSCESS, FEBRILE. LE BILATERAL PILONIDAL ABSCESS, FEBRILE. LE Active 01/18/2016 [facility] Diagnosis Active 2016-01-18 00:00:00 2016-03-30 10:18:00 M chrystal Jolley Cellulitis of left breast Cellulitis of left breast Problem Active [facility] Abscess of left breast Left breast abscess Problem Active 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) Fe male hirsutism (disorder) Resolved Problem 01/24/2016 [facility] Problem Resolved 2016-01-24 01:47:25 Hillary Jolley Family history: Infectious disease (context-dependent category) Family history: Infectious disease (context-dependent category) Resolved Problem 01/24/2016 [facility] Problem Resolved 2016-01-24 01:47: 25 Hillary Jolley History of - gynecological disorder (context-dependent category) History of - gynecological disorder (context-dependent category) Resolved Problem 01/24/2016 [facility] Problem Resolved 2016-01-24 01: 47:25 Hillary Jolley Hypertensive disorder, systemic arterial (disorder) Hypertensive disorder, systemic arterial (disorder) Resolved Problem 01/24/2016 [facility] Problem Resolved 2016-01-24 01:47:25 Hillary Jolley Bipolar disorder (disorder) Bi polar disorder (disorder) Resolved Problem 01/24/2016 [facility] Problem Resolved 2016-01-24 01:47:25 Hillary [place] Depressive disorder (disorder) Depressive disorder (disorder) Resolved Problem 01/24/2016 [facility] Problem Resolved 2016-01-24 01:47:25 [facility] Morbid obesity (disorder) Morb id obesity (disorder) Resolved Problem 01/24/2016 [facility] Problem Resolved 2016-01-24 01:47:25 Hillary Shola Hidradenitis suppurativa (disorder) Hidradenitis suppurativa (disorder) Resolved Problem 01/24/2016 [facility] Problem Resolved 2016-01-24 01:47:25 [facility] Morbid obesity Morb id obesity Active Problem 02/29/2016 [id number] Problem Active 2016-02-29 03:47:23 [facility] Abscess of buttock Absc ess of buttock Active Diagnosis 02/29/2016 [id number] Diagnosis Active 2016-02-29 03:47:23 Hillary Jolley Hyperglycemia due to type 2 diabetes mellitus Hyperglycemia due to type 2 diabetes mellitus Active Problem 02/29/2016 [id number] Problem Active 2016-02-29 03:47:23 [facility] Cellulitis Cell ulitis Active Diagnosis 02/29/2016 [id number] Diagnosis Active 2016-02-29 03:47:23 [facility] PILONIDAL CYST WITH ABSCESS PI LONIDAL CYST WITH ABSCESS Active [facility] Diagnosis Active 2016-03-30 10:18:00 Hillary Jolley History of Past Illness Condition Name Condition Details Condition Category Status Onset Date Resolution Date Last Treatment Date Treating Clinician Comments Source Diabetes mellitus (disorder) D iabetes mellitus (disorder) Resolved 04/02/2014 Problem 01/24/2016 [facility] Problem Resolved 2014-04-02 00:00:00 2016-01-24 01:47:25 2016-01-24 01:47:25 [facility] Allergies, Adverse Reactions, Alerts Allergy Name Allergy Type Status Severity Reaction(s) Onset Date Inacti ve Date Treating Clinician Comments Source Lisinopril Allergy to Substance Active [facility] 2018-10-16 00:00:00 [facility] Penicillin Allergy to Substance Active 2018-01-16 00:00:00 [facility] penicillin penicillin Active Info Not Available 2016-02-09 00:00:0 0 [facility] penicillins penicillins Active [facility] Social [facility] Social [facility]it Start Date Stop Date Quantity Comments Source SmokeExposure: 2016-02-09 00:00:00 2016-02-09 00:00:00 [facility] Social History 2016-01-18 18:01:44 2016-01-18 18:01:44 [facility] Medications Ordered Medication Name Filled Medication Name Start Date Stop Da te Current Medication? Ordering Clinician Indication Dosage Frequency Signature (SIG) Comments Components Source Lisinopril 2016-02-29 03:47:23 Yes Matt Hasan 1 t ablet [facility] Mupirocin 2016-02-09 00:00:00 Yes Matt Hasan 1 application to affected area [facility] Pneumovax 23 2016-01-21 15:00:00 No Notes: (Same as: Pneumovax 23) Refrigerate [facility] Acetaminophen 300 MG / Codeine Phosphate 30 MG Oral Tablet [Tylenol with Codeine #3] 2016-01-20 21:12:00 Yes 1 tab, PO, Q6H, PRN Pain Score 1-3, X 5 day, # 20 tab, 0 Refill(s) [facility] Acetaminophen 300 MG / Codeine Phosphate 30 MG Oral Tablet [Tylenol with Codeine #3] 2016-01-20 21:11:00 No Notes: Do not exceed 4gm/day of acetaminophen. (Same as: Tylenol with Codeine # 3) [facility] doxycycline hyclate 100 MG Oral Capsule 2016-01-20 20:32:00 Yes 100 mg = 1 cap, PO, Q12H, X 10 day, # 20 cap, 0 Refill(s) [facility] famotidine (ANES) 2016-01-19 14:44:00 No Route: IV, Drug form: INJ, ONCE, Stop date: 01/19/16 9:44:00 CDT Ri jag Jolley succinylcholine ([facility]) 2016-01-19 14:44:00 No Route: IV, Drug form: INJ, ONCE, Stop date: 01/19/16 9:44:00 CDT [facility] fentaNYL ([facility]) 2016-01-19 14:44:00 No Route: IV, Drug form: INJ, ONCE, Stop date: 01/19/16 9:44:00 CDT Ri jag Jolley ondansetron ([facility]) 2016-01-19 14:44:00 No Route: IV, Drug form: INJ, ONCE, Stop date: 01/19/16 9:44:00 CDT Ri jag Jolley propofol ([facility]) 2016-01-19 14:44:00 No Route: IV, Drug form: INJ, ONCE, Stop date: 01/19/16 9:44:00 [facility] 2016-01-19 14:44:00 No Route: IV, Drug form: INJ, ONCE, Stop date: 01/19/16 9:44:00 [facility] ([facility]) 2016-01-19 14:44:00 No Route: IV, Drug form: SOLN, ONCE, Stop date: 01/19/16 9:44:00 CDT Ri jag Jolley LR 1000 mL INJ ([facility]) 2016-01-19 14:05:00 No Route: IV, Total Volume: 1,000, Start date: 01/19/16 9:05:00 CDT, Stop date: 01/19/16 10:05:00 CDT [facility] influenza virus vaccine, inactivated 2016-01-19 14:00:00 No Notes: (Same as: Fluzone Quadrivalent, Fluarix Quadrivalent) For 3 years of age and older (0.5 mL IM) Shake well before use [facility] pneumococcal capsular polysaccharide typ e 1 vaccine / pneumococcal capsular polysaccharide type 10A vaccine / pneumococcal capsular polysaccharide type 11A vaccine / pneumococcal capsular polysaccharide type 12F vaccine / pneumococcal capsular polysacchar 2016-01-19 14:00:00 No Notes: (Same as: Pneumovax 23) Refrigerate [facility] Munir roshan Albuterol 0.833 MG/ML / Ipratropium [place] 0.167 MG/ML Inha lant Solution 2016-01-19 11:47:00 No 3 mL, Route: NEB, Dosing Weight 136.42, kg, ONCE, STAT, Start date: 01/19/16 6:47:00 CDT, Stop date: 01/19/16 6:47:00 CDT [facility] [place] Calcium Chloride 0.0014 MEQ/ML / Potassi um Chloride 0.004 MEQ/ML / Sodium Chloride 0.103 MEQ/ML / Sodium Lactate 0.028 MEQ/ML Injectable Solution 2016-01-19 11:47:00 No 1,000 mL, Rate: 25 ml/hr, Infuse over: 40 hr, Route: IV, Dosing Weight 136.42 kg, Total Volume: 1,000, Start date: 01/19/16 6:47:00 CDT, Duration: 30 day, Stop date: 02/18/16 6:46:00 [facility] Sodium Chloride 0.154 MEQ/ML Injectable Solution 2016-01-19 11:4 7:00 No 500 mL, Rate: 25 ml/hr, Infu se over: 20 hr, Route: IV, Dosing Weight 136.42 kg, Total Volume: 500, Start date: 01/19/16 6:47:00 CDT, Duration: 30 day, Stop date: 02/18/16 6:46:00 [facility] Hillary islas Lisinopril 2016-01-18 22:32:00 No Notes: (Same as: Maria Victoria Taylor) [facility] K-Dur 20 2016-01-18 21:58:00 No Notes: (Same as: K-Dur 20) "Do Not Crush" With food and full glass of water [facility] sodium chloride 0.9% 1000 ml INJ 1,000 mL 2016-01-18 21:12:00 No 1,000 mL, Rate: 100 ml/hr, Infuse over: 10 hr, Route: IV, Dosing Weight 136.42 kg, Total Volume: 1,000, Start date: 01/18/16 16:12:00 CDT, Duration: 30 day, Stop date: 02/17/16 16:11:00 [facility] [employer] Larry Jolley heparin sodium, porcine 2500 UNT/ML Injectable Solution 2016-01-18 21:00:00 No Notes: porcine heparin M [facility] Clindamycin 2016-01-18 19:00:00 No 600 mg, 50 mL, Route: IVPB, Drug form: INJ, ABXQ8H, kg, Start date: 01/18/16 14:00:00 CDT, Duration: 30 day, Stop date: 02/17/16 6:00:00 [facility] roshan Dextrose 50% Syringe 2016-01-18 18:38:00 No 12.5 gm, 25 mL, Route: IVP, Drug Form: INJ, kg, PRN, PRN Blood Glucose Results, Start date: 01/18/16 13:38:00 CDT, Duration: 30 day, Stop date: 02/17/16 12:37:00 [facility] [employer] Glucagon 2016-01-18 18:38:00 No 1 mg, Route: IM, Drug form: PDR/INJ, PRN, kg, PRN Blood Glucose Results, Start date: 01/18/16 13:38:00 CDT, Duration: 30 day, Stop date: 02/17/16 12:37:00 [facility] Insulin, Aspart, Human 2016-01-18 18:38:00 No Notes: Roll in palms of hands gently; Do not shake vigorously. (Same as: NovoLOG) "single patient use only" WASTE: F/P - Black; E - Municipal Trash Bin Stable for 28 days at room temperature. Expires in days from Date [facility] Sodium Chloride 0.9% IV 1000 mL 2016-01-18 18:38:00 No 1,000 mL, Rate: 100 ml/hr, Infuse over: 10 hr, Route: IV, Total Volume: 1,000, Start date: 01/18/16 13:38:00 CDT, Duration: 2 day, Stop date: 01/20/16 13:37:00 CDT [facility] Morphine 2016-01-18 18:30:00 No Not es: (Same as:MORPhine Sulfate) [facility] Naproxen 2016-01-18 18:30:00 No Notes: (Same as: Naprosyn) Take with food. [facility] Metformin 2016-01-18 17:36:00 Yes 1, 000 mg, PO, BID, 0 Refill(s) [facility] Lisinopril 2016-01-18 17:36:00 Yes 2 0 mg, PO, Daily, 0 Refill(s) [facility] NuvaRing 2016-01-18 17:35:00 Yes 1 ea, VAG, q4wk, 0 Refill(s) [facility] Amlodipine Besylate 10 Mg Tablet Amlodipine Besylate 10 Mg Tablet Yes [address] [facility] Liraglutide (Victoza 2-Garth) 0.6 Mg/0.1 Ml Pen.injctr L iraglutide (Victoza 2-Garth) 0.6 Mg/0.[address] Yes Daily [facility] Metformin Hcl 500 Mg Tablet Metformin Hcl 500 Mg Tablet Yes 1000 Daily [facility] Olmesartan Medoxomil (Benicar) 20 Mg Tablet Olmesartan Medoxomil (Benicar) 20 Mg Tablet Yes 5 Bedtime [facility] Spironolactone 25 Mg Tablet Spironolactone 25 Mg Tablet Yes 25 Bedtime [facility] Acetaminophen With Codeine (Tylenol With Codeine #3 Tablet) 1 Each Tablet, 300 Mg Oral Acetaminophen With Codeine (Tylenol With Codeine #3 Tablet) 1 Each Tablet, 300 Mg Oral 2018-10-16 00:00:00 No 300 Every [address] [facility] Doxycycline Hyclate 100 Mg Capsule, 100 Mg Oral Doxycy ontiveros Hyclate 100 Mg Capsule, 100 Mg Oral 2018-10-16 00:00:00 No [address] [facility] Lisinopril (Prinavil / Zestril) 20 Mg Tablet, 20 Mg Or al Lisinopril (Prinavil / Zestril) 20 Mg Tablet, 20 Mg Oral 2018-10-16 00:00:[address] [facility] Losartan Potassium 100 Mg Tablet, 100 Mg Oral Losartan Potassium 100 Mg Tablet, 100 Mg Oral 2018-10-16 00:00:[address] [facility] Trimethoprim/Sulfamethoxazole (Bactrim Ds) 1 Ea Tab, 1 Ea G Tube Trimethoprim/Sulfamethoxazole (Bactrim Ds) 1 Ea Tab, 1 Ea G Tube 2018-01-16 00:00:[address] [facility] Vital Signs Vital Name Observation Time Observation Value Comments Source Weight 2016-02-09 19:45:00 [facility] Height 2016-02-09 19:45:00 [facility] Temperature Oral (F) 2016-02-09 19:45:00 98.0 F [facility] Heart Rate 2016-02-09 19:45:00 [facility] [place] Diastolic (mm Hg) 2016-02-09 19:45:00 [facility] [place] Systolic (mm Hg) 2016-02-09 19:45:00 Leobardo rial [place] Systolic (mm Hg) 2016-01-21 19:37:00 Leobardo rial [place] Diastolic (mm Hg) 2016-01-21 19:37:00 Mem [facility] [place] Heart Rate 2016-01-21 19:37:00 [facility] [place] Respitory Rate 2016-01-21 19:37:00 Memori al [place] Temperature Oral (F) 2016-01-21 19:37:00 98.6 F [facility] Respitory Rate 2016-01-21 16:59:00 Memori al [place] Systolic (mm Hg) 2016-01-21 16:59:00 Leobardo rial Shola Diastolic (mm Hg) 2016-01-21 16:59:00 Mem orial [place] Heart Rate 2016-01-21 16:59:00 [facility] [place] Temperature Oral (F) 2016-01-21 16:59:00 98.2 F [facility] Temperature Oral (F) 2016-01-21 12:43:00 98.0 F [facility] [place] Heart Rate 2016-01-21 12:43:00 [facility] [place] Respitory Rate 2016-01-21 12:43:00 Memori al [place] Systolic (mm Hg) 2016-01-21 12:43:00 Leobardo rial [place]ola Diastolic (mm Hg) 2016-01-21 12:43:00 Mem orial [place] Height 2016-01-18 21:14:00 170.18 cm [facility] [place] Weight 2016-01-18 20:14:00 [facility] [place] Procedures Procedure Date / Time Performed Performing Clinician Musa grimaldo DRAINAGE OF LEFT BREAST, OPEN APPROACH 2018-01-18 00:00:[address] [facility] EXCISION OF LEFT BREAST, EXTERNAL APPROACH 2018-01-18 00:00: [address] [facility] EXCISION OF LEFT BREAST, OPEN APPROACH 2018-01-18 00:00:[address] [facility] Ultrasound of left breast 2018-01-16 00:00:[address] [facility] Incision and drainage of abscess (eg, ca rbuncle, suppurative hidradenitis, cutaneous or subcutaneous abscess, cyst, furuncle, or paronychia); complicated or multiple 2016-01-19 15:36:00 [facility] 2005-04-02 00:00:00 [facility] Encounters Start Date/Time End Date/Time Encounter Type [facility] Encounter ID Source 2018-10-18 17:37:00 2018-10-18 19:13:00 Departed Emergency Room 1 WES SIMMONS [facility] [id number] [facility] 2018-01-16 17:18:00 2018-01-20 17:35:00 Discharged Inpatient 1 JOSE MANUEL EDDY [facility] [id number] [facility] 2016-02-09 13:45:00 2016-02-09 13:45:00 Outpatient [facility] [id number] [employer] 2016-01-18 12:05:00 2016-01-21 18:26:00 Outpatient Grace Cheng [facility] [id number] Results Test Description Test Time Test Comments Results Result Comments Source CT ABDOMEN/PELVIS W 2018-10-30 12:55:00 [place] [address] Patient Name: SUSAN GARCIA MR #: [id number] : 1985 Age/Sex: 32/F Req #: [id number] Adm Physician: Ordered by: DIAN KENNEDY MD Report #: [id number] Location: CT Room/Bed: Procedure: [id number] CT/CT ABDOMEN/PELVIS W Exam Date: 10/30/18 Exam [...] 12:59 PM Dictated By: ISAAC CAST MD 1250 Transcribed By: TRANG on 10/30/18 1250 COPY TO: DIAN KENNEDY MD CT ABD/PEL WO CONTRAST-HOPD 2018-10-18 18:32:00 [place] [id number] [place] [address] Patient Name: SUSAN GARCIA MR #: [id number] : 1985 Age/Sex: 32/F Req #: [id number] Adm Physician: Ordered by: WES SIMMONS MD Report #: [id number] Location: [facility] Room/Bed: Procedure: [id number] HOPD/CT ABD/PEL WO CONTRAST-HOPD Exam Date: 10/18/18 [...] Test Item Blood Culture (test code = 92240097) NO GROWTH AFTER 5 DAYS, FINAL REPORT [facility] [id number] 11:43:00* Test Item Value Reference Range Interpretation Comments Bedside Glucose (test code = 51314-1) 95 70-120 Meter ID: [id number] Level 2018-01-20 06:50:00* Test Item Value Reference Range Interpretation Comments Sodium Level (test code = 2951-2) 144 136-145 [facility] [id number] 06:50:00* Test Item Value Reference Range Interpretation Comments Potassium Level (test code = 2823-3) 4.3 3.5-5.1 [facility] CenterChloride [id number] 06:50:00* Test Item Value Reference Range Interpretation Comments Chloride Level (test code = 2075-0) 108 98-[address] [facility] CenterCarbon Dioxide Kzkpd4802-35-02 06:50:00* Test Item Value Reference Range Interpretation Comments Carbon Dioxide Level (test code = 2028-9) 24 22-29 [facility] CenterAnion Iqa3714-36-54 06:50:00* Test Item Value Reference Range Interpretation Comments Anion Gap (test code = 88146-1) 16.3 8-[address] [facility] CenterBlood Urea Bqomqahp9218-13-83 06:50:00* Test Item Value Reference Range Interpretation Comments Blood Urea Nitrogen (test code = 3094-0) 16 7-26 [facility] CenterCreatinine2018-10-21 06:50:00* Test Item Value Reference Range Interpretation Comments Creatinine (test code = 2160-0) 1.04 0.57-1.11 [facility] CenterBUN/Creatinine Iarmg3705-23-42 06:50:00* Test Item Value Reference Range Interpretation Comments BUN/Creatinine Ratio (test code = 3097-3) 15 - [facility] CenterEstimat Glomerular Filtration Rate 2018-01-20 06:50:00* Test Item Value Reference Range Interpretation Comments Estimat Glomerular Filtration Rate (test code = 163264456) > 60 >60 Ranges were taken from the National Kidney Disease Education Program and the [facility] Foundation literature.Reference ranges:60 or greater: Pofotj05-25 ( for 3 consecutive months): Chronic kidney disease 15 or less: Kidney failureSt. Joseph Medical CenterGlucose Jgzpn7985-76-49 06:50:00* Test Item Value Reference Range Interpretation Comments Glucose Level (test code = PIS6257) 96 74-118 [facility] CenterCalcium Dassr2821-73-26 06:50:00* Test Item Value Reference Range Interpretation Comments Calcium Level (test code = 84728-5) 9.4 8.4-10.2 [facility] CenterVancomycin Level Zymesg3499-17-97 06:00:00* Test Item Value Reference Range Interpretation Comments Vancomycin Level Trough (test code = 4092-3) 6.6 5.0-10.0 [facility] CenterWhite Blood Cfnrk2126-91-01 05:40:00* Test Item Value Reference Range Interpretation Comments White Blood Count (test code = 6690-2) 7.49 4.8-10.8 [facility] CenterRed Blood Ziluj5368-51-18 05:40:00* Test Item Value Reference Range Interpretation Comments Red Blood Count (test code = 789-8) 4.06 3.6-5.1 [facility] CenterHemoglobin2018-10-21 05:40:00* Test Item Value Reference Range Interpretation Comments Hemoglobin (test code = 72533-6) 9.8 12.0-16.[address] [facility] CenterHematocrit2018-10-21 05:40:00* Test Item Value Reference Range Interpretation Comments Hematocrit (test code = 4544-3) 34.9 34.2-44.1 [facility] CenterMean Corpuscular Qurfwe4866-17-85 05:40:00* Test Item Value Reference Range Interpretation Comments Mean Corpuscular Volume (test code = 787-2) 86.0 81-99 REVIEWEDSt. Joseph Medical CenterMean Corpuscular Hemoglobin 2018-01-20 05:40:00* Test Item Value Reference Range Interpretation Comments Mean Corpuscular Hemoglobin (test code = 785-6) 24.1 28-[address] [facility] CenterMean Corpuscular Hemoglobin Concent 2018-01-20 05:40:00* Test Item Value Reference Range Interpretation Comments Mean Corpuscular Hemoglobin Concent (test code = 786-4) 28.1 31-[address] [facility] CenterRed Cell Distribution Rafyp8969-82-37 05:40:00* Test Item Value Reference Range Interpretation Comments Red Cell Distribution Width (test code = 99181-6) 14.6 11.7 -14.[address] [facility] CenterPlatelet Svari8916-68-45 05:40:00* Test Item Value Reference Range Interpretation Comments Platelet Count (test code = 777-3) 309 140-360 [facility] CenterNeutrophils (%) (Auto)2018-01-20 05:40:00 * Test Item Value Reference Range Interpretation Comments Neutrophils (%) (Auto) (test code = 14059-8) 45.9 38.7-80.0 [facility] CenterLymphocytes (%) (Auto)2018-01-20 05:40:00 * Test Item Value Reference Range Interpretation Comments Lymphocytes (%) (Auto) (test code = 736-9) 41.8 18.0-39.[address] [facility] CenterMonocytes (%) (Auto)2018-01-20 05:40:00* Test Item Value Reference Range Interpretation Comments Monocytes (%) (Auto) (test code = 5905-5) 9.7 4.4-11.3 [facility] CenterEosinophils (%) (Auto)2018-01-20 05:40:00 * Test Item Value Reference Range Interpretation Comments Eosinophils (%) (Auto) (test code = 713-8) 1.6 0.0-6.0 [facility] CenterBasophils (%) (Auto)2018-01-20 05:40:00* Test Item Value Reference Range Interpretation Comments Basophils (%) (Auto) (test code = 706-2) 0.7 0.0-1.0 [facility] CenterIM GRANULOCYTES %2018-01-20 05:40:00* Test Item Value Reference Range Interpretation Comments IM GRANULOCYTES % (test code = IM GRANULOCYTES %) 0.3 0.0- 1.0 [facility] CenterNeutrophils # (Auto)2018-01-20 05:40:00* Test Item Value Reference Range Interpretation Comments Neutrophils # (Auto) (test code = 751-8) 3.4 2.1-6.9 [facility] CenterLymphocytes # (Auto)2018-01-20 05:40:00* Test Item Value Reference Range Interpretation Comments Lymphocytes # (Auto) (test code = 93339-3) 3.1 1.0-3.2 [facility] CenterMonocytes # (Auto)2018-01-20 05:40:00* Test Item Value Reference Range Interpretation Comments Monocytes # (Auto) (test code = 742-7) 0.7 0.2-0.8 [facility] CenterEosinophils # (Auto)2018-01-20 05:40:00* Test Item Value Reference Range Interpretation Comments Eosinophils # (Auto) (test code = 711-2) 0.1 0.0-0.4 [facility] CenterBasophils # (Auto)2018-01-20 05:40:00* Test Item Value Reference Range Interpretation Comments Basophils # (Auto) (test code = 704-7) 0.1 0.0-0.1 [facility] CenterAbsolute Immature Granulocyte (auto 2018-01-20 05:40:00* Test Item Value Reference Range Interpretation Comments Absolute Immature Granulocyte (auto (katherine t code = Absolute Immature Granulocyte (auto) 0.02 0-0.1 [facility] CenterTo[facility] Aazdamyvr2235-69-73 08:32:00* Test Item Value Reference Range Interpretation Comments Total Bilirubin (test code = 1975-2) 0.5 0.2-1.2 [facility] CenterAspartate Amino Transf (AST/SGOT) 2018-01-17 08:32:00* Test Item Value Reference Range Interpretation Comments Aspartate Amino Transf (AST/SGOT) (test code = Aspartate Amino Transf (AST/SGOT)) 12 5-34 [facility] CenterAlanine Aminotransferase (ALT/SGPT) 2018-01-17 08:32:00* Test Item Value Reference Range Interpretation Comments Alanine Aminotransferase (ALT/SGPT) (test code = 1742-6) 11 0-55 [facility] CenterTotal Brhsljg5368-80-57 08:32:00* Test Item Value Reference Range Interpretation Comments Total Protein (test code = 2885-2) 7.1 6.5-8.1 [facility] CenterAlbumin2018-10-18 08:32:00* Test Item Value Reference Range Interpretation Comments Albumin (test code = 1751-7) 3.1 3.5-5.[address] [facility] CenterGlobulin2018-10-18 08:32:00* Test Item Value Reference Range Interpretation Comments Globulin (test code = 41705-2) 4.0 2.3-3.[address] [facility] CenterAlbumin/Globulin [id number] 08:32:00 * Test Item Value Reference Range Interpretation Comments Albumin/Globulin Ratio (test code = 1759-0) 0.8 0.8-2.0 [facility] CenterAlkaline Btgwugrxucw7063-48-87 08:32:00* Test Item Value Reference Range Interpretation Comments Alkaline Phosphatase (test code = 6768-6) 73 40-150 [facility] HPHO7635-48-22 18:22:00 [facility] [address] [address] Patient Name: SUSAN GARCIA MR #: [id number] : 1985 Age/Sex: 32/F Req #: [id number] Adm Physician: JOSE MANUEL EDDY MD Ordered by: ANTONIO BLAND MD Report #: [id number] Location: [facility] Room/Bed: [address] [address] Procedure: [id number] US /US BREAST COMPLETE LEFT Exam Date: [...] 01/16/181827 COPY TO: ANTONIO BLAND MD Triglycerides Wevqa6469-18-99 16:53:00* Test Item Value Reference Range Interpretation Comments Triglycerides Level (test code = 2571-8) 51 0-149 [facility] Rvhiq0903-75-32 16:53:00* Test Item Value Reference Range Interpretation Comments Cholesterol Level (test code = 2093-3) 126 0-199 Less than 200 mg/dL Low Jubb264 - 239 mg/dL Borderline Secy939 m g/dl and greater High Risk [facility] CenterLDL Rapxiyuorce4685-28-06 16:53:00* Test Item Value Reference Range Interpretation Comments LDL Cholesterol (test code = 2089-1) 64 60-130 [facility]HDL Nxjqmwaobre8179-54-91 16:53:00* Test Item Value Reference Range Interpretation Comments HDL Cholesterol (test code = 2085-9) 52 40-60 [facility] CenterCh[facility]HDL Zzyce2575-50-94 16:53:00 * Test Item Value Reference Range Interpretation Comments Cholesterol/HDL Ratio (test code = 9830-1) 2.4 3.0-3.[address] [facility] CenterHemoglobin A1c Eqzxjne6110-34-59 16:36:00 * Test Item Value Reference Range Interpretation Comments Hemoglobin A1c Percent (test code = Hemoglobin A1c Percent) 6.3 4.0-7.0 [facility] CenterHuman Chorionic Gonadotropin, Qual 2018-01-16 16:35:00* Test Item Value Reference Range Interpretation Comments Human Chorionic Gonadotropin, Qual (test code = 2118-8) NEGATIVE NEGATIVE [facility] CenterELECTROLYTES2016-10-21 09:41:0012.3 [facility] SztcpwwHFNLXWZIEIIB1366-35-82 09:41:0098[facility] HermannELECTROLYTES 2016-01-21 09:41:007[facility] CgnkrzzLLTYKTSDEZUM8156-01-01 09:41:61020Kkxrxthr QydlcczEDWOWYATDZRD9790-13-73 09:41:0026[facility] QhukqusSJUOEQKBJFUJ1364-43-04 09:41:25956Sejaybje PmcpmaiANWWYSUWCOCF9391-38-46 09:41:004.3[facility] BLCKOWWOZHNY2072-94-35 09:41:000.67[facility] JvjidrgBOYMBAQCMJRQ8322-91-21 09:41:47420Rcfxvsea FkekzcmSKUYJTNLUHOD8584-62-11 09:41:008.4[facility] WVWLBINBOD8825-89-92 09:41:0014.4[facility] MnaqogmWLRAFPRYWM2292-27-59 09:41:00 7.3[facility] MmisdheENHWUKJPHU2743-65-80 09:41:42973Lbhqknfn HermannHEMATOLOGY 2016-01-21 09:41:004.24[facility] UhwzwduYXQDKIZJLN9119-82-29 09:41:009.6[facility] TsbekasQJJPMGNGKL1230-62-27 09:41:0072.4[facility] GutiqflXTEJLOHDVS6938-66-41 09:41:0031.4[facility] VwptoiyDMVAIEJTTC7165-25-43 09:41:0030.7[facility] HVBYNGFMDL0883-91-52 09:41:009.6[facility] EnnosqfUCPTIAKKEJ2786-53-39 09:41:00* Test Item Value Reference Range Interpretation Comments MCH (test code = MCH) 22.8 pg 27.0-31.0 [facility] DdmmvjqKOENLFYETB9372-95-01 09:41:000.5[facility] HermannHEMATOLOGY 2016-01-21 09:41:001.0[facility] ZemaaelLMTIYFJDMA6008-87-42 09:41:001+ *ABN*(01/21/16 4:41 AM)[facility] EkbmyirQNKADJRDWM9534-32-89 09:41:002.8[facility] QldjwrrZDQUBEPRQS9847-91-59 09:41:000.1[facility] SwyusxdSLWXLXRKBK8534-74-35 09:41:0053.9[facility] VcmlrqjOZFVGKCAWE7613-47-99 09:41:0010.5[facility] EAOTJVVPDM7479-34-05 09:41:005.2[facility] ZxxiinwSABSTOPFPU5218-05-81 09:41:000.9 [facility] CvomwxeEDYOPNPQOC4753-49-37 09:41:0029.1[facility] HermannHEMATOLOGY 2016-01-21 09:41:005.6[facility] IlfrnatQHKEBFUETMYQ6811-79-18 12:07:0011.0 [facility] NqdwmjpADYOXDSMVSND4568-57-09 12:07:19796Slujomhl HermannELECTROLYTES 2016-01-20 12:07:004.0[facility] HgtepyuQZYPEFINEZSJ9090-57-43 12:07:77485Fsjbbeum CamautqOEWDQUAEDOBD9763-57-60 12:07:0026[facility] CdgdwmuIORYHDNPYICW3461-44-18 12:07:008.7[facility] AdcprorPVMKKUVESMWY5434-85-28 12:07:31084Zdxiqtxt [facility] CBHZRQOLARDS5461-00-44 12:07:000.78[facility] JujjwasZYGCEOWMXNXC2367-44-41 12:07:008[facility] NldjxuoLJNUTFDPRFBL0343-18-80 12:07:0093[facility] SRXEHUUHDA1745-82-49 12:07:004.24[facility] TktozvgVJDJOEZUCT6015-04-31 12:07:00 14.3[facility] BetmphbWVZVLIZRUC8673-11-50 12:07:01802Snrkiobb HermannHEMATOLOGY 2016-01-20 12:07:007.7[facility] HgbipfpCYBWTHUOWL2082-72-02 12:07:0010.1[facility] CrwxixuPPJOORGWYU7641-06-11 12:07:0030.9[facility] KhtwaikMSXCJZZYQI8663-65-81 12:07:0072.9[facility] LjfleuqZAMLHQIEUV8943-02-49 12:07:00* Test Item Value Reference Range Interpretation Comments MCH (test code = MCH) 23.7 pg 27.0-31.0 [facility] JvuocqhVKLZIGGXZM4596-94-04 12:07:0032.5[facility] HermannHEMATOLOGY 2016-01-20 12:07:009.7[facility] WxrjsqzYNYGTDMXDI6497-31-52 12:07:0028.5[facility] HzusbpxBHEDBDMZIL4056-15-46 12:07:009.5[facility] PvdsxmzWFHDIFHMLQ8244-41-33 12:07:005.8[facility] KtnijzvZRHHNKCSAW1103-68-93 12:07:000.9[facility] DSTSYYVBUP8569-77-90 12:07:000.6[facility] LdshjgcDSSZYKAHKX0938-78-48 12:07:000.1 [facility] MzqegvtUOVXAGYKKU8262-53-09 12:07:000.7[facility] HermannHEMATOLOGY 2016-01-20 12:07:005.4[facility] HxjyreyGVLHZHAQGV6213-53-41 12:07:002.8[facility] YnsfkbxOKIQMDYTGO3345-45-79 12:07:001+ *ABN*(01/20/16 7:07 AM)[facility] XLDWLGHWAN0167-74-75 12:07:0055.5[facility] HermannURINE ATMO1144-25-32 11:57:00 Negative (01/19/16 6:57 AM)[facility] HermannURINE AND TVTKQ3902-67-29 23:04:001 [facility]annURINE AND EEFKS8178-36-26 23:04:00Negative (01/18/16 6:04 PM) [facility]annURINE AND DGGFP7307-89-80 23:04:002[facility] HermannURINE AND XXZEM1184-54-87 23:04:001.025[facility] HermannURINE AND WZZRG0424-29-00 23:04:00 Clear (01/18/16 6:04 PM)[facility]annURINE AND GIBEV1974-26-37 23:04:005.0 [facility]annURINE AND PPMXW0205-57-63 23:04:00Negative *NA*(01/18/16 6:04 PM)[facility]annURINE AND ULNSB8119-30-80 23:04:00Negative (01/18/16 6:04 PM) [facility]ann[facility] AND QXTPW3298-48-50 23:04:002.0[facility] HermannURINE AND STKLE5968-88-57 23:04:00Negative (01/18/16 6:04 PM)[facility] HermannHEMATOLOGY 2016-01-18 20:44:21* Test Item Value Reference Range Interpretation Comments PTT (test code = PTT) 32.3 s 22.9-35.8 [facility] GuaqamvGLCBOKORTA7532-02-49 20:44:21* Test Item Value Reference Range Interpretation Comments PT (test code = PT) 15.2 s 12.0-14.7 [facility] QvdudfiGSUCNLPMKH5879-16-25 20:44:211.18[facility] HermannCHEM PANEL 2016-01-18 19:49:571.8[facility] HermannCHEM FKGIG7482-19-78 19:49:32164Epyawlsu HermannCHEM ISYTM8925-98-82 19:49:5793[facility] HermannCHEM PQIUW3528-20-76 19:49:570.4[facility] HermannCHEM ZGMYW1735-83-98 19:49:573.0[facility] HermannCHEM BSVBC7367-01-77 19:49:5719[facility] HermannCHEM AWWLR5206-00-50 19:49:5718 [facility] HermannCHEM IOXTK0451-15-22 19:49:579.0[facility] HermannCHEM PANEL 2016-01-18 19:49:578.2[facility] HermannCHEM PXJHL6422-16-73 19:49:34120Ffzwzdnw HermannCHEM AXWHV9824-63-73 19:49:573.4[facility] HermannCHEM OAPVZ2470-50-46 19:49:88973Xbjcgjdn HermannCHEM MHDXJ4268-69-67 19:49:5722[facility] HermannCHEM GTETY8867-48-28 19:49:576[facility] HermannCHEM JTLGK9229-13-65 19:49:570.72 [facility] HermannCHEM FBKMG0780-21-81 19:49:17594Czwqagck HermannCHEM PANEL 2016-01-18 19:49:570.6[facility] HermannCHEM KGJFQ4791-48-54 19:49:578[facility] HermannCHEM RXHGF4090-32-74 19:49:575.2[facility] HermannCHEM XSGRJ4420-39-08 19:49:5714.4[facility] HermannCHEM ILBQZ6699-51-07 19:49:573.1[facility] SZSLHUOFWE9523-80-01 19:49:5772.7[facility] EwzhkdjDSLYYUKYZA1751-28-19 19:49:57 30.9[facility] HnbirwlGIFYXILNKJ4147-63-19 19:49:579.6[facility] HermannHEMATOLOGY 2016-01-18 19:49:574.26[facility] CzyzhhwBPOCDIMLDA7885-59-72 19:49:57* Test Item Value Reference Range Interpretation Comments MCH (test code = MCH) 22.6 pg 27.0-31.0 [facility] XefwjlvPCXKSFPFHD0995-15-42 19:49:5719.1[facility] HermannHEMATOLOGY 2016-01-18 19:49:5731.1[facility] WqrklciPJDERZLYYZ9364-10-97 19:49:5714.1[facility] KxccjeeKTMJSMIYJW1354-43-78 19:49:41223Dtupxwhk OymjoizSRZVCVJNQF7782-84-38 19:49:577.9[facility] YjyqdmySVVNPBIHIU6167-13-81 19:49:572.7[facility] NZETMOJYOH5289-50-80 19:49:570.2[facility] SqoxhtbWSXPVWNHKP1175-17-53 19:49:570.1 [facility] LclvblcIVFWNDBIXJ2388-23-50 19:49:571+ *ABN*(01/18/16 2:49 PM)[facility] EepjetwYFJAYTOBHQ2641-68-88 19:49:572.1[facility] StvspfvJJBLAIIAFD4058-88-51 19:49:571.2[facility] QqknvrgSGRVLKNQTY0420-37-33 19:49:570.5[facility] UWVYDHUEZN5082-93-06 19:49:5713.9[facility] DczghngSLSBPFJHLK9861-43-80 19:49:57 14.3[facility] DvwfvgyALRUJPBJEL5513-98-04 19:49:5772.9[facility] HermannHEMATOLOGY 2016-01-18 19:49:5711.1[facility] SqydonhCGNGMQXSLY5403-34-87 19:49:574[facility] QfijavcPVFHNZGEMA2262-21-86 19:49:21999.0[facility] HermannSPECIAL CHEMISTRY 2016-01-18 19:49:577.6[facility]
--- NOTE | 2019-11-03 14:42 | Diagnostic Imaging Report ---
EXAM: Focused Soft Tissue Ultrasound Evaluation of the right breast INDICATION: Right breast cellulitis COMPARISON: None TECHNIQUE: Thurston scale, color Doppler images of the right breast were obtained. FINDINGS: Sonographic evaluation of the lower outer quadrant of the right breast in the area of clinical interest demonstrates skin thickening and an underlying 7 x 4 cm heterogeneous fluid collection with internal echogenic material. IMPRESSION: Right breast abscess and overlying cellulitis. RECOMMENDATIONS: Aspiration versus drainage. Signed by: John Paul Osorio MD on 11/03/2019 2:39 PM
--- NOTE | 2019-11-03 14:45 | NUR ---
REPORT ATTEMPTED. NUMBER IS BUSY
--- NOTE | 2019-11-03 14:50 | NUR ---
REPORT CALLED TO KARIME TRINIDAD
--- NOTE | 2019-11-03 14:50 | NUR ---
RECEIVED REPORT FROM THE [facility] FROM SEA SCHAFFER.
--- NOTE | 2019-11-03 14:58 | NUR ---
[facility] CALLED TO ARRANGE TRANSPORT. ETA 30-45 MIN
--- NOTE | 2019-11-03 15:00 | NUR ---
VIVI RN CALLED AT [facility] TO GIVE UPDATE. PER DR. ESPINOZA ER DOC, PATIENT SHOULD NOT DRIVE HERSELF. [facility] CALLED AND ETA 30-[address] ESPINOZA ULTRASOUND OF RIGHT BREAST SHOWED ABCESS. DR. ESPINOZA TALKING TO DR. WILKERSON IN SURGERY. PER DR. ESPINOZA, DR. WILKERSON PLANS TO TAKE PATIENT TO OR TOMORROW MORNING. PATIENT IS NPO AFTER MIDNIGHT
--- NOTE | 2019-11-03 16:09 | NUR ---
PATIENT ARRIVED ON THE UNIT @ 1609 VIA STRETCHER X 2 EMS. PATIENT IN STABLE CONDITION, NO S/S OF DISTRESS NOTED. IV SITE FLUIDS INFUSING, SITE ASYMPTOTIC AND PATENT, TRANSPARENT DRESSING C/D/I. BED IN LOWEST POSITION AND LOCKED.CALL LIGHT WITHIN REACH.
[2019-11-03] MEDS: MORPHINE SULFATE 2 MG/ML SYR 1ML IV PRN (16:23)
[2019-11-03 16:45] VITALS: BP 127/100
[2019-11-03] MEDS: SODIUM CHLORIDE 0.9% 1000ML 1,000 ML IV SCH ×2 (17:24→20:25)
[2019-11-03] MEDS ORDERED: NUVARING VAGIN1 EACH (17:39)
[2019-11-03 17:40] VITALS: BP 127/100
[2019-11-03] MEDS: KETOROLAC TROMETHAMINE 30 MG/ML VIAL IV PRN ×2 (18:18→21:24)
--- NOTE | 2019-11-03 19:25 | NUR ---
BEDSIDE SHIFT REPORT RECEIVED FROM DAY RN.PT IS ALERT AND ORIENTED X4.RESPIRATIONS ARE EVEN AND UNLABORED. RT AC 20G .SITE HEEALTHY. CALL LIGHT WITHIN REACH. BED IN LOW POSITION.
[2019-11-03 19:45] VITALS: BP 127/100
--- NOTE | 2019-11-03 19:56 | NUR ---
COMPLETED BEDSIDE SHIFT REPORT AND ROUNDING WITH THE ONCOMING GOING NIGHT NURSE. PATIENT IN STABLE CONDITION, NO S/S OF DISTRESS NOTED. IV FLUIDS INFUSING, SITE ASYMPTOMATIC AND PATIENT, TRANSPARENT DRESSING C/D/I. BED IN LOWEST POSITION AND LOCKED,SIDE RAILS X 2, NONSKID SOCKS APPLIED. CALL LIGHT WITHIN REACH.
[2019-11-03 20:00] VITALS: BP 116/60
[2019-11-03] MEDS ORDERED: DEXTROSE 50% SYRINGE 50 ML IV PRN (23:45)
[2019-11-04] VITALS (9 sets, daily range): BP systolic 122–142; BP diastolic 65–74
[2019-11-04] MEDS: VANCOMYCIN 1GM/NS 250 ML 250 ML IV SCH ×2 (01:45→13:45)
[2019-11-04] MEDS: CEFEPIME 1GM/NS 0.9% 50 ML 50 ML IV SCH ×2 (02:09→13:15)
[2019-11-04] MEDS: SODIUM CHLORIDE 0.9% 1000ML 1,000 ML IV SCH ×2 (04:43→17:26)
[2019-11-04 05:22] LABS: BASOPHILS % 0.2 % (0.0-1.0); EOSINOPHILS # (AUTO) 0.1 (0.0-0.4); EOSINOPHILS % 0.9 % (0.0-6.0); HEMATOCRIT 29.7 % (34.2-44.1); HEMOGLOBIN 9.8 g/dL (12.0-16.0); LYMPHOCYTES # (AUTO) 2.2 (1.0-3.2); LYMPHOCYTES % 17.7 % (18.0-39.1); MEAN CORPUSCULAR HEMOGLOBIN 26.3 pg (28-32); MEAN CORPUSCULAR VOLUME 79.8 fL (81-99); MONOCYTES # (AUTO) 1.3 (0.2-0.8); MONOCYTES % 10.1 % (4.4-11.3); NEUTROPHILS # (AUTO) 8.9 (2.1-6.9); NEUTROPHILS % 70.6 % (38.7-80.0); PLATELET COUNT 287 x10e3/uL (140-360); RED BLOOD COUNT 3.72 x10e6/uL (3.6-5.1); RED CELL DISTRIBUTION WIDTH 14.8 % (11.7-14.4)
[2019-11-04 05:47] LABS: ANION GAP 10.6 mmol/L (8-16); BLOOD UREA NITROGEN 7 mg/dL (7-26); BUN/CREATININE RATIO 10 (6-25); CALCIUM 8.8 mg/dL (8.4-10.2); CARBON DIOXIDE 23 mmol/L (22-29); CHLORIDE 107 mmol/L (98-107); CREATININE, SERUM 0.71 mg/dL (0.57-1.11); EST GLOMERULAR FILTRATION RATE > 60 ML/MIN (60-); GLUCOSE 150 mg/dL (74-118); MAGNESIUM 1.6 MG/DL (1.3-2.1); POTASSIUM 3.6 mmol/L (3.5-5.1); SODIUM 137 mmol/L (136-145)
[2019-11-04] MEDS: KETOROLAC TROMETHAMINE 30 MG/ML VIAL IV PRN (05:55)
--- NOTE | 2019-11-04 06:36 | Consultation ---
DATE OF CONSULTATION: 11/04/2019 HISTORY OF PRESENT ILLNESS: The patient is a 33-year-old female, who presents with complaints of pain and swelling in the right breast, she has had for several days. She has had associated low-grade fever. She is not exactly similar problems in the past. She has had previous hidradenitis involving the breast, but no abscesses. However, she came to the emergency room and evaluation with imaging reveals an abscess in the right breast. The patient has not noticed any drainage. PAST MEDICAL HISTORY: Significant only for the hidradenitis. She also has history of diabetes and hypertension. MEDICATIONS: At home are amlodipine, contraceptive, metformin, and Benicar. ALLERGIES: SHE HAS ALLERGIES TO PENICILLIN AND LISINOPRIL. FAMILY HISTORY: Noncontributory. SOCIAL HISTORY: The patient does not smoke cigarettes or drink alcohol. REVIEW OF SYSTEMS: As stated above, otherwise was negative. PHYSICAL EXAMINATION: GENERAL: The patient is awake and alert, in no distress. VITAL SIGNS: Heart rate around 100. She has temperature 99.7. HEENT: Sclerae is nonicteric. NECK: Has no masses. LUNGS: Equal breath sounds are clear bilaterally. BREASTS: In the right breast, there is erythema and induration in the inferior aspect of her breast laterally. There is no drainage. No necrotic tissue. There are some scars on both breasts from previous procedures. CARDIAC: Regular rate and rhythm. Normal S1 and S2 without murmur, S3 or S4. There is no jugular venous distention. ABDOMEN: Soft. There is no tenderness, no mass no organomegaly. EXTREMITIES: Have no edema. NEUROLOGIC: Exam was grossly intact. LABORATORY DATA: Lab tests; white blood count on arrival 16.4, repeat 12.6, hemoglobin on arrival 11, hematocrit 37, and platelet count is normal. Chemistries are glucose is mildly elevated. ASSESSMENT: 33-year-old female with right breast abscess. PLAN: Incision and drainage to be done in the operating room today with biopsy to be taken from the abscess. Procedure was explained to the patient including risks, benefits, and alternatives. She understands. She has had the opportunity to ask questions. Thank you for asking me to see Ms. Tesfaye. MD ENRIQUETA Holm/MIKE /[id number]
--- NOTE | 2019-11-04 07:29 | NUR ---
Bedside shift report completed and the pt. is pending urine spec. She is maintained n p o status for I ad D right breast cellulitis. Her consent needs completion as she was medicated for pain prior to order for consent received.
[2019-11-04] MEDS: MORPHINE SULFATE 2 MG/ML SYR 1ML IV PRN (11:03)
[2019-11-04] MEDS ORDERED: LIDOCAINE HCL 1% LOCAL INJ 20 ML VIAL ONE (11:36)
[2019-11-04] MEDS ORDERED: LIDOCAINE 1% W/EPINEPHRINE 20 ML VIAL ONE (11:36)
--- NOTE | 2019-11-04 11:49 | NUR ---
GAVE PACKET OF INFORMATION WITH COMM[employer]ITY [employer] FOR ASSISTANCE WITH LOW TO NO INCOME TO PATIENT. RESOURCES THAT PATIENT MAY BE ABLE TO FOLLOW UP UPON DISCHARGE. PT EDUCATED ON EACH RESOURCE AND UNDERSTANDING HOW TO FOLLOW UP TO SEE IF QUALIFIED FOR EACH RESOURCE.
--- NOTE | 2019-11-04 11:52 | NUR ---
The pt. is out of the room for surgery at this time.
[2019-11-04] MEDS ORDERED: HYDROCODONE/APAP 5MG-325MG TAB PO PRN (12:30)
[2019-11-04] MEDS ORDERED: ACETAMINOPHEN 1000 MG/100 ML 100 ML IV ONE (12:39)
--- NOTE | 2019-11-04 12:59 | NUR ---
PATIENT BACK TO UNIT FROM OR, SHE IS IN STABLE CONDITION. IV FLUIDS CONTINUED.
--- NOTE | 2019-11-04 14:03 | Operative Report ---
DATE OF PROCEDURE: 11/04/2019 SURGEON: Pavan Roberts MD PREOPERATIVE DIAGNOSIS: Right breast abscess. POSTOPERATIVE DIAGNOSIS: Right breast abscess. PROCEDURES: Incision and drainage of right breast abscess, incisional biopsy from right breast abscess. DRIER OPERATOR HEAD: None. ANESTHESIA: General endotracheal. INDICATIONS AND FINDINGS: The patient is a 33-year-old female with history of diabetes, presented with complaints of pain and swelling in her right breast. At Surgery, the patient was found to have abscess, extending into the lower aspect of the breast containing approximately 60 mL of purulent fluid, there were multiple loculations, which were broken up. A biopsy was taken from the abscess cavity. TECHNIQUE: After adequate general anesthesia, the patient in supine position, the right breast was prepped and draped in sterile fashion with ChloraPrep solution. Incision was made over the area of swelling and fluctuance, and abscess cavity was entered. About 60 mL of purulent fluid was drained, sample taken for culture and sensitivity. A biopsy was taken using electrocautery from the wall abscess. Hemostasis was achieved with electrocautery. There was multiple loculations, which were broken up. The abscess was irrigated with saline, it was then packed open with half-inch iodoform gauze and sterile dressing applied. The patient tolerated the procedure well. Estimated blood loss was 30 mL. There were no complications. All counts were correct. The patient was taken to the recovery room in satisfactory condition. Pavan Roberts MD DWG/MODL /[id number] cc: Edith Walters MD
[2019-11-04] MEDS ORDERED: MIDAZOLAM HCL 2 MG/2 ML VIAL ONE (14:33)
[2019-11-04] MEDS ORDERED: FENTANYL CITRATE/PF 100MCG/2 ML INJ ONE (14:33)
[2019-11-04] MEDS ORDERED: DESFLURANE 240 ML BTL INH ONE (15:15)
[2019-11-04] MEDS ORDERED: ONDANSETRON HCL INJ 2MG/ML 2ML 2 MG/ML VIAL ONE (15:15)
[2019-11-04] MEDS ORDERED: NEOSTIGMINE 1 MG/ML 10ML VIAL ONE (15:15)
[2019-11-04] MEDS ORDERED: GLYCOPYRROLATE INJ 0.2 MG/ML VIAL ONE (15:15)
[2019-11-04] MEDS ORDERED: PROPOFOL IV EMULSION 10 MG/ML 20 ML VIAL ONE (15:15)
[2019-11-04] MEDS ORDERED: ROCURONIUM BROMIDE 10 MG/ML 5ML VIAL IV ONE (15:15)
[2019-11-04] MEDS ORDERED: SUCCINYLCHOLINE CHLORIDE 20 MG/ML 10ML VIAL ONE (15:15)
[2019-11-04] MEDS ORDERED: LIDOCAINE HCL 2% LOCAL INJ 5 ML SDV VIAL INJ ONE (15:15)
[2019-11-04] MEDS: ENOXAPARIN SOD INJ 40 MG/0.4 ML SYR SC SCH (16:28)
--- NOTE | 2019-11-04 19:20 | NUR ---
BEDSIDE SHIFT REPORT RECEIVED FROM DAY RN. PT IS ALERT AND ORIENTED X3. TELE ON.RESPIRATIONS ARE EVEN AND UNLABORED. DRESSING TO RT BREAST HAS OLD BLOODY DRAINAGE PRESENT BUT REMAINS DRY AND INTACT. PT VOIDING WITHOUT DIFFICULTY. NS INFUSING VIA LEFT PIV AT 75 ML/HR. SITE HEALTHY. PT DENIES PAIN.CALL LIGHT WITHIN REACH. BED IN LOW POSITION AND LOCKED IN PLACE.
--- NOTE | 2019-11-04 20:05 | History and Physical ---
CHIEF COMPLAINT: Right breast pain secondary to an abscess. HISTORY OF PRESENT ILLNESS: A 33-year-old female, morbidly obese, history of type 2 diabetes, and hypertension, who has a history of hidradenitis, comes in from the freestanding ER with complaints of right breast pain with underlying abscess collection. The patient was then brought into our [facility] for further evaluation and management by General Surgery and Hospitalist Service. The patient was seen and evaluated at bedside on the medical floor. She is currently doing well. In fact, the patient already went to the OR and was evaluated by General Surgery, had an I and D to the right breast and ID has been consulted. The patient has had this pain for the last one week now. Denies any fever at home. No cough, congestion, or any recent travel. The patient was stable during my evaluation. REVIEW OF SYSTEMS: Pertinent positives: Right breast pain. The rest of 14-point review of systems have been reviewed with the patient and are negative. ALLERGIES: PENICILLINS AND LISINOPRIL. HOME MEDICATIONS: Metformin, amlodipine, and olmesartan. PAST MEDICAL HISTORY: Hypertension, type 2 diabetes, morbidly obese, and periadenitis. PAST SURGICAL HISTORY: She has multiple I and Ds to the hidradenitis. FAMILY HISTORY: Hypertension and diabetes. SOCIAL HISTORY: No drugs. No alcohol. Does not smoke. Good social support. PHYSICAL EXAMINATION: VITAL SIGNS: Temperature is 99.1, T-max 100.5, pulse 81, respiratory rate is 18, blood pressure 134/73, and pulse ox 93% on room air. GENERAL: Not in acute distress. Alert and oriented x3. Cooperative on examination. HEENT: Head; normocephalic, atraumatic. Eyes; pupils are equal, round, and reactive to light bilaterally. Extraocular movements intact bilaterally. Throat; no evidence of erythema or exudates in the posterior pharynx. Has poor dentition. NECK: Supple. Good range of motion. PULMONARY: Clear to auscultation bilaterally. No wheezing, no rales, no rhonchi, no crackles appreciated. CARDIOVASCULAR: Positive S1 and S2. No murmurs, rubs, or gallops appreciated. ABDOMEN: Soft, nondistended, and nontender to palpation. Bowel sounds present. MUSCULOSKELETAL: Strength is 5/5 throughout. No evidence of any muscle deficits on examination. No weakness appreciated. NEUROLOGIC: Cranial nerves 2 through 12 grossly intact. No evidence of any neurological deficits on exam. SKIN: I evaluated the right breast with the nurse present, Rajani. The patient just recently had an I and D status where the abscess was currently packed. PSYCHIATRIC: Normal affect and mood. EXTREMITIES: No edema. Good range of motion throughout. LABORATORY FINDINGS: Show white count 12.6, hemoglobin 9.0, hematocrit is 29, and platelets of 287. Chemistry; sodium 137, potassium 3.6, chloride 107, bicarb 23, anion gap of 12, BUN is 7, creatinine is 0.71, glucose is 150, calcium is 8.8, and magnesium is 1.6. Urine was negative. Serology; coronavirus is pending. MICROBIOLOGY: Blood cultures no growth. Wound cultures are pending. IMAGING STUDIES: Breast ultrasound shows a 7 x 4 heterogeneous fluid collection with internal echogenic material. IMPRESSION: 1. Right breast abscess secondary to hidradenitis, now status post I and D. 2. Type 2 diabetes, uncontrolled. 3. Hypertension. 4. Morbidly obesity. PLAN: At this time, General Surgery was consulted. The patient underwent I and D already. Wound cultures have been sent. IV antibiotics. Blood cultures, no growth to date. ID consulted. Put on insulin sliding scale. Get a hemoglobin A1c. She is on Toradol for pain. Put on Lovenox for DVT prophylaxis. Encouraged ambulation. She is on a heart healthy diet. MD RICKY Rutherford/MODL /[id number]
[2019-11-04] MEDS: OLMESARTAN MEDOXOMIL 5 MG TABLET PO SCH (21:57)
[2019-11-04] MEDS: AMLODIPINE BESYLATE 10 MG TAB PO SCH (21:57)
--- NOTE | 2019-11-04 22:56 | Consultation ---
DATE OF CONSULTATION: 11/04/2019 HISTORY OF PRESENT ILLNESS: Ms. Tesfaye is a very pleasant 33-year-old female, who has history of obesity and hidradenitis, comes in with redness and swelling of the right wrist. She was seen by Dr. Roberts, underwent I and D. I am asked to see her. She is currently doing better with complaint of pain. PAST MEDICAL HISTORY: She had abscess before. PAST SURGICAL HISTORY: I and D. ALLERGIES: NKA. SOCIAL HISTORY: No smoking, drug abuse, or alcohol abuse. LABORATORY DATA: Her cultures are still pending. PHYSICAL EXAMINATION: GENERAL: Alert and oriented. VITAL SIGNS: Stable, afebrile. HEENT: She is not icteric. NECK: Supple. CHEST: Clear. ABDOMEN: Soft. IMPRESSION: Abscess of the breast. Vancomycin and cefepime until we get the cultures. We will follow up. MD TABATHA Samuels/MIKE /[id number]
[2019-11-05] VITALS (8 sets, daily range): BP systolic 114–144; BP diastolic 56–88
[2019-11-05] MEDS: SODIUM CHLORIDE 0.9% 1000ML 1,000 ML IV SCH ×2 (01:16→22:09)
[2019-11-05] MEDS: CEFEPIME 1GM/NS 0.9% 50 ML 50 ML IV SCH ×2 (01:45→12:20)
--- NOTE | 2019-11-05 04:30 | NUR ---
iv leaking in rt ac. iv d/c with catheter intact. pressure dressing to site. lab drawn as ordered. attempt iv start x3. will endorse to day rn.
[2019-11-05 06:36] LABS: BASOPHILS % 0.2 % (0.0-1.0); EOSINOPHILS # (AUTO) 0.3 (0.0-0.4); EOSINOPHILS % 2.2 % (0.0-6.0); HEMOGLOBIN 9.8 g/dL (12.0-16.0); LYMPHOCYTES # (AUTO) 3.5 (1.0-3.2); LYMPHOCYTES % 25.1 % (18.0-39.1); MEAN CORPUSCULAR HEMOGLOBIN 24.9 pg (28-32); MEAN CORPUSCULAR HGB CONC 31.6 g/dL (31-35); MEAN CORPUSCULAR VOLUME 78.7 fL (81-99); MONOCYTES # (AUTO) 1.3 (0.2-0.8); MONOCYTES % 9.6 % (4.4-11.3); NEUTROPHILS # (AUTO) 8.7 (2.1-6.9); NEUTROPHILS % 62.5 % (38.7-80.0); PLATELET COUNT 363 x10e3/uL (140-360); RED BLOOD COUNT 3.94 x10e6/uL (3.6-5.1); RED CELL DISTRIBUTION WIDTH 13.4 % (11.7-14.4)
[2019-11-05 06:56] LABS: ANION GAP 9.7 mmol/L (8-16); BLOOD UREA NITROGEN 7 mg/dL (7-26); BUN/CREATININE RATIO 9 (6-25); CALCIUM 8.9 mg/dL (8.4-10.2); CARBON DIOXIDE 26 mmol/L (22-29); CHLORIDE 105 mmol/L (98-107); CREATININE, SERUM 0.74 mg/dL (0.57-1.11); EST GLOMERULAR FILTRATION RATE > 60 ML/MIN (60-); GLUCOSE 141 mg/dL (74-118); POTASSIUM 3.7 mmol/L (3.5-5.1); SODIUM 137 mmol/L (136-145)
--- NOTE | 2019-11-05 11:25 | NUR ---
PT HAS TURIN [employer] [facility]; NOT SELF PAY
[2019-11-05] MEDS: KETOROLAC TROMETHAMINE 30 MG/ML VIAL IV PRN (12:20)
--- NOTE | 2019-11-05 15:12 | NUR ---
visited the pt , she expressed teodora and hope through words , piecer up provided prayer support and encouragement and blessings chaplain Karoline
[2019-11-05] MEDS: ENOXAPARIN SOD INJ 40 MG/0.4 ML SYR SC SCH (16:51)
--- NOTE | 2019-11-05 19:28 | NUR ---
Report given oncoming nurse. Resting in bed. NO s/s of acute distress noted. Side rails upx2, call light within reach.
[2019-11-05] MEDS: OLMESARTAN MEDOXOMIL 5 MG TABLET PO SCH (21:47)
[2019-11-05] MEDS: AMLODIPINE BESYLATE 10 MG TAB PO SCH (21:48)
[2019-11-06] VITALS: BP 134/75
[2019-11-06] MEDS: CEFEPIME 1GM/NS 0.9% 50 ML 50 ML IV SCH ×2 (01:47→12:00)
--- NOTE | 2019-11-06 02:06 | Progress Note ---
DATE: 11/05/2019 Medicine Progress Note SUBJECTIVE: The patient is doing well today with no complaints. We are going to educate her about her packing on her right breast abscess I and D, that was performed by General Surgery. PHYSICAL EXAMINATION: VITAL SIGNS: Temperature is 98.6, pulse 74, respirations 16, blood pressure 120/56, and pulse ox 98% on room air. GENERAL: No acute distress. Alert and oriented x3. Cooperative on examination. HEENT: Head is normocephalic and atraumatic. Eyes; pupils are equal, round, and reactive to light bilaterally. Extraocular movements are intact bilaterally. Throat, no evidence of any erythema or exudates in the posterior pharynx. Has poor dentition. NECK: Supple. Good range of motion throughout. PULMONARY: Clear to auscultation bilaterally. No wheezing, rales, or rhonchi. No crackles appreciated. CARDIOVASCULAR: Positive S1 and S2. No murmurs, rubs, or gallops appreciated. ABDOMEN: Soft, nondistended, nontender to palpation. Bowel sounds present. MUSCULOSKELETAL: Strength is 5/5 throughout. No evidence of muscle deficits on examination. No weakness appreciated. NEUROLOGICAL: Cranial nerves II through XII grossly intact. No evidence of any neurological deficits on exam. SKIN: Intact, warm to touch. Good cap refill. PSYCHIATRIC: Normal affect and mood. EXTREMITIES: No edema good range of motion throughout. LABORATORY FINDINGS: Show white count 13, hemoglobin 9.8, hematocrit is 31, and platelets of 363. Chemistries are stable. MICROBIOLOGY: Blood cultures no growth. Wound cultures are pending, preliminary no growth to date. IMAGING STUDIES: None. IMPRESSION: 1. Right breast abscess secondary to hydradenitis, status post incision and debridement, postop day #1. 2. Type 2 diabetes, uncontrolled. 3. Hypertension. 4. Morbidly obese. PLAN: At this time, General Surgery reported to the nurse that likely the patient will be discharged tomorrow. Wound cultures are still pending. Continue with IV antibiotics. Blood cultures, no growth. Continue with sliding scale. She will benefit from oral anti-glycemic medications. Continue with Toradol for pain. Lovenox for DVT prophylaxis. Diabetic diet. Edith Walters MD JSDinorah/MODL /[id number]
[2019-11-06] MEDS: SODIUM CHLORIDE 0.9% 1000ML 1,000 ML IV SCH (03:56)
[2019-11-06 04:00] VITALS: BP 137/73
[2019-11-06 06:05] LABS: BASOPHILS % 0.4 % (0.0-1.0); EOSINOPHILS # (AUTO) 0.3 (0.0-0.4); EOSINOPHILS % 3.6 % (0.0-6.0); HEMATOCRIT 28.8 % (34.2-44.1); HEMOGLOBIN 9.3 g/dL (12.0-16.0); LYMPHOCYTES # (AUTO) 2.6 (1.0-3.2); LYMPHOCYTES % 31.2 % (18.0-39.1); MEAN CORPUSCULAR HEMOGLOBIN 25.8 pg (28-32); MEAN CORPUSCULAR HGB CONC 32.3 g/dL (31-35); MEAN CORPUSCULAR VOLUME 79.8 fL (81-99); MONOCYTES # (AUTO) 0.7 (0.2-0.8); MONOCYTES % 8.8 % (4.4-11.3); NEUTROPHILS # (AUTO) 4.6 (2.1-6.9); NEUTROPHILS % 55.2 % (38.7-80.0); PLATELET COUNT 323 x10e3/uL (140-360); RED BLOOD COUNT 3.61 x10e6/uL (3.6-5.1); RED CELL DISTRIBUTION WIDTH 13.8 % (11.7-14.4)
[2019-11-06 06:23] LABS: ANION GAP 11.9 mmol/L (8-16); BLOOD UREA NITROGEN 8 mg/dL (7-26); BUN/CREATININE RATIO 11 (6-25); CALCIUM 9.1 mg/dL (8.4-10.2); CARBON DIOXIDE 25 mmol/L (22-29); CHLORIDE 106 mmol/L (98-107); CREATININE, SERUM 0.72 mg/dL (0.57-1.11); EST GLOMERULAR FILTRATION RATE > 60 ML/MIN (60-); GLUCOSE 135 mg/dL (74-118); POTASSIUM 3.9 mmol/L (3.5-5.1); SODIUM 139 mmol/L (136-145)
[2019-11-06 08:00] VITALS: BP 140/75
[2019-11-06 08:05] VITALS: BP 140/75
--- NOTE | 2019-11-06 09:00 | NUR ---
at bedside removing packing and changing dressing to right breast
--- NOTE | 2019-11-06 12:00 | NUR ---
Provided patient with wound care instructions. Voiced understanding and returned demonstration.
[2019-11-06 12:01] VITALS: BP 134/71
[2019-11-06] MEDS ORDERED: DOXYCYCLINE HY100 MG PO (13:51)
--- NOTE | 2019-11-06 14:54 | NUR ---
Left wrist IV discontinued. No signs of infiltration noted. 2x2 gauze and tape placed. Accompanied by PCT to admissions office. Patient states " I work here and I am going to go to admissions office, then I will call [employer] to pick me up and take me to [facility] ER, where it is parked." AAOX4 to time, person, place, situation. Respirations even and unlabored. Denies pain. Discharge instructions, rx, and all personal belongings taken with patient.
--- NOTE | 2019-11-07 10:03 | Discharge Summary ---
FINAL DISCHARGE DIAGNOSES: 1. Right breast abscess secondary to hidradenitis, status post incision and drainage performed by General Surgery. 2. Type 2 diabetes. 3. Hypertension. 4. Morbidly obese. CONSULTANTS: ID and General Surgery. VITAL SIGNS: Temperature is 98.5, pulse 82, respiratory rate is 20, blood pressure 134/71, pulse ox 99% on room air. LABORATORY DATA: Labs show white count 8.2, hemoglobin 9.3, hematocrit is 28, and platelets of 323. Chemistry; sodium 139, potassium 3.9, chloride 106, bicarb 25, anion gap of 11, BUN is 8, creatinine is 0.72, glucose is 135, calcium is 9.1, hemoglobin A1c was 8.8, magnesium 1.6. Urinalysis, none. Coronavirus not detected. MICROBIOLOGY: Blood cultures, no growth. Wound cultures shows a few gram-positive cocci in pairs. IMAGING STUDIES: Breast ultrasound shows a 7 x 4 cm heterogeneous fluid collection and internal echogenic material. HOSPITAL COURSE: This is a 33-year-old female, morbidly obese with known type 2 diabetes, underlying hydradenitis, came in [facility] with underlying right-sided breast pain, found to have a breast abscess. The patient was then transferred to [facility] for further evaluation and management. General Surgery was consulted. The patient underwent incision and drainage on 11/05/2019. Wound cultures were collected. She was on broad-spectrum IV antibiotics, being managed by ID. The patient improved throughout the hospital course. She was discharged on oral doxycycline for 2 weeks as per ID recommendations. No further surgical workup was needed and the patient was educated about having the dressing changes at home by the nursing staff. She will follow up with ID and General Surgery in about 7 to 10 days. The patient was back to normal baseline with no complaints. On the day of discharge, vital signs were stable, labs reviewed and stable. The patient is seen and evaluated and examined thoroughly on the day of discharge with no other complaints. The patient verbalized understanding and agrees to plan of care to follow up accordingly as outpatient with primary care physician in 1 week and ID and General Surgery in 7 to 10 days. MEDICATIONS: See med reconciliation form. DISPOSITION: Home. CONDITION: Stable. DIET: Heart healthy. In the event of worsening symptoms, the patient was advised to come back to the ED for further evaluation. Discharge summary took greater than 35 minutes. MD RICKY Rutherford/MIKE /[id number]
== END 2019-11-06 14:54 | disposition home or self-care (01) | DRG 854 ==
LOC: FSED 10:43 → ERHOLD 14:00 → MED/SURG2 16:03
PROVIDERS: ADMIT Internal Medicine; ATTEND Internal Medicine
PROC: 0HBT0ZX Excision of Right Breast, Open Approach, Diagnostic (ICD-10-PCS; principal; 2019-11-04 13:30)
DX: A41.9 Sepsis, unspecified organism (principal); Z68.42 Body mass index [BMI] 45.0-49.9, adult; N61.1 Abscess of the breast and nipple; I10 Essential (primary) hypertension; E11.9 Type 2 diabetes mellitus without complications; Z88.0 Allergy status to penicillin; Z88.8 Allergy status to other drugs, medicaments and biological substances; E66.01 Morbid (severe) obesity due to excess calories; Z79.84 Long term (current) use of oral hypoglycemic drugs; Z83.3 Family history of diabetes mellitus; Z82.49 Family history of ischemic heart disease and other diseases of the circulatory system; L73.2 Hidradenitis suppurativa; Z11.59 Encounter for screening for other viral diseases
CPT/HCPCS: 36415; 80048; 80076; 81003; 81025; 82948; 83036; 83735; 85025; 87040; 87071; 87075; 87205; 88305; 99284; J0330; J0692; J0694; J1650; J1885; J2001; J2250; J2270; J2405; J2710; J3010; J3370; J7030; J7050; U0002